=== PATIENT | male | born 1960 | race Caucasian/White ===

== ENCOUNTER 2018-06-30 11:16 | Inpatient (IN) | payer OTHER ==
[2018-06-30] MEDS ORDERED: Sodium Chloride 0.9% 10 ML Syringe FLUSH PRN (11:17)
[2018-06-30] MEDS ORDERED: Sodium Chloride 0.9% 10 ML SDV IV PRN (11:17)
[2018-06-30] MEDS ORDERED: Sodium Chloride 0.9% 2.5 ML Syringe FLUSH PRN (11:17)
--- NOTE | 2018-06-30 11:38 | CT ---
EXAMINATION: Non contrast CT head. Coronal and sagittal reformats. HISTORY: Stroke code FINDINGS: No evidence of intra or extra axial hemorrhage, mass, midline shift, hydrocephalus or edema. There is a small area of encephalomalacia within the right medial occipital region. No hypoattenuation changes in the major vascular territories to suggest acute infarct. No abnormal intracranial calcifications are detected. Mild vascular calcifications. Paranasal sinuses and mastoid air cells are essentially well aerated without substantial findings. Pituitary fossa appears unremarkable. Orbits and globes are symmetric. Calvarium is intact. No evidence of skull fracture. IMPRESSION: 1. No acute intracranial findings. 2. Stable encephalomalacia within the medial right occipital lobe. The above findings were called to the ER at 11:33 AM.
[2018-06-30 12:25] LABS: CHLORIDE,CL 103 mmol/L (98-107); SODIUM,NA 138 mmol/L (136-148)
--- NOTE | 2018-06-30 13:29 | EDM.PDOC ---
ED HPI GENERAL MEDICAL PROBLEM - General Chief Complaint: Neuro Symptoms/Deficits Stated Complaint: POSS STROKE SYMPTOMS Time Seen by Provider: 06/30/18 11:17 Source of Information: Reports: Patient History Limitations: Reports: No Limitations - History of Present Illness INITIAL COMMENTS - FREE TEXT/NARRATIVE: HISTORY AND PHYSICAL: History of present illness: Patient is a 57-year-old male presents to the ED today for concern of loss of balance and a change in sensation of his right leg. Patient states he went to bed last night at 10:30 PM. Patient states he woke up about 2 AM and noticed a change in his balance. Patient states that all morning he had this "odd" sensation but is not really able to quantify this. Patient called to the clinic and got an appointment. The clinic sent him to the ED with concern for a neurological event. Patient had a history of a stroke approximately 8 years ago that occurred following a heart surgery. Patient states he had a workup done at that time and it was believed to be a clot drawn to his brain from his heart surgery. Patient states he has recently stopped from medications but he is not certain which ones. Patient denies any falls or hitting of his head. Patient denies fever, chills, chest pain, shortness of breath, or cough. Denies headache, neck stiff ness, change in vision, syncope, or near syncope. Denies nausea, vomiting, abdominal pain, diarrhea, constipation, or dysuria. Has not noted any blood in urine or stool. Patient has been eating and drinking appropriately. Review of systems: As per history of present illness and below otherwise all systems reviewed and negative. Past medical history: As per history of present illness and as reviewed below otherwise noncontributory. Surgical history: As per history of present illness and as reviewed below otherwise noncontributory. Social history: See social history for further information Family history: As per history of present illness and as reviewed below otherwise noncontributory. Physical exam: General: Patient is alert, oriented, and in no acute distress. Patient laying comfortably on exam table. HEENT: Atraumatic, normocephalic, pupils equal and reactive bilaterally, negative for conjunctival pallor or scleral icterus, mucous membranes moist, TMs normal bilaterally, throat clear, neck supple, nontender, trachea midline. No drooling or trismus noted. No meningeal signs. No hot potato voice noted. Lungs: Clear to auscultation, breath sounds equal bilaterally, chest nontender. Heart: S1S2, regular rate and rhythm without overt murmur Abdomen: Soft, nondistended, nontender. Negative for masses or hepatosplenomegaly. Negative for costovertebral tenderness. Pelvis: Stable nontender. Genitourinary: Deferred. Rectal: Deferred. Skin: Intact, warm, dry. No lesions or rashes noted. Extremities: Atraumatic, negative for cords or calf pain. Neurovascular unremarkable. Full range of motion/strength of all extremities without difficulty. Neuro: Awake, alert, oriented. Cranial nerves II through XII unremarkable. With gait, patient has some loss of balance/poor coordination but is able to catch himself. Notes: Stroke code called upon arrival to the ED. Dr. Murphy was directly involved in patient care. NIH score 2, GCS 15. Discussed the importance to transfer [facility] to [place], but patient declines. Did have an extensive conversation about the risk vs benefit of transfer versus staying overnight in [place]. Patient states that he prefers to stay in [place] and declines transfer to [facility] in [place]. Patient states he is aware of the risks of not transfer but prefers to stay here and take the risk. Dr. Meyer was contacted on patient and will admit to observation. Voices understanding and is agreeable to plan of care. Denies any further questions or concerns at this time. 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 Admit to observation to Dr. Meyer. Definitive disposition and diagnosis as appropriate pending reevaluation and review of above. - Related Data Allergies Allergy/AdvReac Type Severity Reaction Status Date / Time No Known Allergies Allergy Verified 01/31/18 10:59 Home Meds: Home Meds Aspirin [Ecotrin] 1 tab PO DAILY 04/29/15 [History] Citalopram Hydrobromide [Celexa] 1 tab PO DAILY 04/29/15 [History] Losartan Potassium 1 tab PO DAILY 04/29/15 [History] Metoprolol Succinate [Toprol XL] 1 tab PO DAILY 04/29/15 [History] Omeprazole Magnesium [Prilosec Otc] 1 tab PO DAILY 04/29/15 [History] Rosuvastatin [Crestor] 40 mg PO BEDTIME 04/29/15 [History] Ibuprofen [Motrin] 600 mg PO ASDIRECTED PRN 01/14/16 [History] Past Medical History HEENT History: Reports: Impaired Vision Other HEENT History: Left eye was affected when he had a stroke. Peripheral vision was affected Cardiovascular History: Reports: CAD, High Cholesterol, Hypertension, SC, Stents , Other (See Below) Respiratory History: Reports: None Gastrointestinal History: Reports: Diverticulosis, GERD, Other (See Below) Other Gastrointestinal History: hx c-diff x3 Genitourinary History: Reports: BPH Musculoskeletal History: Reports: Fracture, Gout Neurological History: Reports: CVA Psychiatric History: Reports: Anxiety, Depression Endocrine/Metabolic History: Reports: Obesity/BMI 30+ Hematologic History: Reports: None Immunologic History: Reports: None Oncologic (Cancer) History: Reports: Lymphoma Dermatologic History: Reports: None - Infectious Disease History Infectious Disease History: Reports: Chicken Pox, Measles - Past Surgical History Head Surgeries/Procedures: Reports: None Cardiovascular Surgical History: Reports: Coronary Artery Stent GI Surgical History: Reports: Appendectomy, Hernia, Inguinal Musculoskeletal Surgical History: Reports: Other (See Below) Social & Family History - Family History Family Medical History: Noncontributory - Caffeine Use Caffeine Use: Reports: Coffee, Soda - Living Situation & Occupation Living situation: Reports: Single Occupation: Employed ED ROS GENERAL - Review of Systems Review Of Systems: ROS reveals no pertinent complaints other than HPI. ED EXAM, NEURO - Physical Exam Exam: See Below (see dictation) Course - Vital Signs Last Recorded V/S: Last Vital Signs Temp 36.3 C 06/30/18 11:20 Pulse 84 06/30/18 11:20 Resp 18 06/30/18 11:20 BP 157/81 H 06/30/18 11:20 Pulse Ox 92 L 06/30/18 11:20 - Orders/Labs/Meds Orders: Active Orders 24 hr Category Date Time Status Admission Status [Patient Status] [ADT] Stat ADT 06/30/18 13:37 Ordered Assess Neurological Status [RC] ASDIRECTED Care 06/30/18 11:17 Active Bedrest [RC] ASDIRECTED Care 06/30/18 11:17 Active Cardiac Monitoring [RC] . DIRECTED Care 06/30/18 11:17 Active EKG Documentation Completion [RC] STAT Care 06/30/18 11:17 Active Height and Weight [RC] UPON Care 06/30/18 11:17 Active Initiate Acute Stroke Protocol [RC] STAT Care 06/30/18 11:17 Active NIH Stroke Scale [RC] ASDIRECTED Care 06/30/18 11:17 Active Nursing Bedside Swallow Screen [RC] ASDIRECTED Care 06/30/18 11:17 Active Stroke Education, General [RC] Click to Edit Care 06/30/18 11:17 Active Vital Signs [RC] Q15M Care 06/30/18 11:17 Active Sodium Chloride 0.9% [Normal Saline] Med 06/30/18 11:17 Active 10 ml IV ASDIRECTED PRN Sodium Chloride 0.9% [Saline Flush] Med 06/30/18 11:17 Active 10 ml FLUSH ASDIRECTED PRN Sodium Chloride 0.9% [Saline Flush] Med 06/30/18 11:17 Active 2.5 ml FLUSH ASDIRECTED PRN Peripheral IV Insertion Adult [OM.PC] Stat Oth 06/30/18 11:17 Ordered Medication Orders Sodium Chloride (Saline Flush) 10 ml FLUSH ASDIRECTED PRN PRN Reason: Keep Vein Open Sodium Chloride (Saline Flush) 2.5 ml FLUSH ASDIRECTED PRN PRN Reason: Keep Vein Open Sodium Chloride (Normal Saline) 10 ml IV ASDIRECTED PRN PRN Reason: IV Use Labs: Laboratory Tests 06/30/18 06/30/18 06/30/18 Range/Units 11:30 11:30 11:30 WBC 4.62 (4.0-11.0) K/uL RBC 4.49 L (4.50-5.90) M/uL Hgb 13.8 (13.0-17.0) g/dL Hct 42.6 (38.0-50.0) % MCV 94.9 (80.0-98.0) fL MCH 30.7 (27.0-32.0) pg MCHC 32.4 (31.0-37.0) g/dL RDW Std Deviation 46.5 (28.0-62.0) fl RDW Coeff of Janet 13 (11.0-15.0) % Plt Count 191 (150-400) K/uL MPV 11.00 (7.40-12.00) fL Neut % (Auto) 63.2 (48.0-80.0) % Lymph % (Auto) 25.5 (16.0-40.0) % [place] % (Auto) 8.7 (0.0-15.0) % Eos % (Auto) 2.2 (0.0-7.0) % Baso % (Auto) 0.4 (0.0-1.5) % Neut # (Auto) 2.9 (1.4-5.7) K/uL Lymph # (Auto) 1.2 (0.6-2.4) K/uL [place] # (Auto) 0.4 (0.0-0.8) K/uL Eos # (Auto) 0.1 (0.0-0.7) K/uL Baso # (Auto) 0.0 (0.0-0.1) K/uL Nucleated RBC % 0.0 /100WBC Nucleated RBCs # 0 K/uL INR 0.96 APTT 26.0 (18.6-31.3) SEC Sodium 138 (136-148) mmol/L Potassium 4.0 (3.5-5.1) mmol/L Chloride 103 (98-107) mmol/L Carbon Dioxide 24.7 (21.0-32.0) mmol/L BUN 21 H (7.0-18.0) mg/dL Creatinine 0.9 (0.8-1.3) mg/dL Est Cr Clr Drug Dosing TNP Estimated GFR (MDRD) > 60.0 ml/min Glucose 143 H (74-106) mg/dL Calcium 9.5 (8.5-10.1) mg/dL Total Bilirubin 0.5 (0.2-1.0) mg/dL AST 34 (15-37) IU/L ALT 63 (14-63) IU/L Alkaline Phosphatase 62 (46-116) U/L Troponin I < 0.050 (0.000-0.056) ng/mL Total Protein 7.2 (6.4-8.2) g/dL Albumin 2.6 L (3.4-5.0) g/dL Globulin 4.6 H (2.6-4.0) g/dL Albumin/Globulin Ratio 0.6 L (0.9-1.6) TSH 3rd Generation 6.22 H (0.36-3.74) uIU/mL Urine Color Urine Appearance Urine pH (5.0-8.0) Ur Specific [place] (1.001-1.035) Urine Protein (NEGATIVE) mg/dL Urine Glucose (UA) (NEGATIVE) mg/dL Urine Ketones (NEGATIVE) mg/dL Urine Occult Blood (NEGATIVE) Urine Nitrite (NEGATIVE) Urine Bilirubin (NEGATIVE) Urine Urobilinogen (<2.0) EU/dL Ur Leukocyte Esterase (NEGATIVE) Urine RBC (0-2/HPF) Urine WBC (0-5/HPF) Ur Epithelial Cells (NONE-FEW) Urine Bacteria (NEGATIVE) 06/30/18 Range/Units 12:12 WBC (4.0-11.0) K/uL RBC (4.50-5.90) M/uL Hgb (13.0-17.0) g/dL Hct (38.0-50.0) % MCV (80.0-98.0) fL MCH (27.0-32.0) pg MCHC (31.0-37.0) g/dL RDW Std Deviation (28.0-62.0) fl RDW Coeff of Janet (11.0-15.0) % Plt Count (150-400) K/uL MPV (7.40-12.00) fL Neut % (Auto) (48.0-80.0) % Lymph % (Auto) (16.0-40.0) % [place] % (Auto) (0.0-15.0) % Eos % (Auto) (0.0-7.0) % Baso % (Auto) (0.0-1.5) % Neut # (Auto) (1.4-5.7) K/uL Lymph # (Auto) (0.6-2.4) K/uL [place] # (Auto) (0.0-0.8) K/uL Eos # (Auto) (0.0-0.7) K/uL Baso # (Auto) (0.0-0.1) K/uL Nucleated RBC % /100WBC Nucleated RBCs # K/uL INR APTT (18.6-31.3) SEC Sodium (136-148) mmol/L Potassium (3.5-5.1) mmol/L Chloride (98-107) mmol/L Carbon Dioxide (21.0-32.0) mmol/L BUN (7.0-18.0) mg/dL Creatinine (0.8-1.3) mg/dL Est Cr Clr Drug Dosing Estimated GFR (MDRD) ml/min Glucose (74-106) mg/dL Calcium (8.5-10.1) mg/dL Total Bilirubin (0.2-1.0) mg/dL AST (15-37) IU/L ALT (14-63) IU/L Alkaline Phosphatase (46-116) U/L Troponin I (0.000-0.056) ng/mL Total Protein (6.4-8.2) g/dL Albumin (3.4-5.0) g/dL Globulin (2.6-4.0) g/dL Albumin/Globulin Ratio (0.9-1.6) TSH 3rd Generation (0.36-3.74) uIU/mL Urine Color YELLOW Urine Appearance CLEAR Urine pH 6.0 (5.0-8.0) Ur Specific [place] <= 1.005 (1.001-1.035) Urine Protein NEGATIVE (NEGATIVE) mg/dL Urine Glucose (UA) NEGATIVE (NEGATIVE) mg/dL Urine Ketones NEGATIVE (NEGATIVE) mg/dL Urine Occult Blood TRACE-LYSED H (NEGATIVE) Urine Nitrite NEGATIVE (NEGATIVE) Urine Bilirubin NEGATIVE (NEGATIVE) Urine Urobilinogen 0.2 (<2.0) EU/dL Ur Leukocyte Esterase NEGATIVE (NEGATIVE) Urine RBC 0-1 (0-2/HPF) Urine WBC 0-1 (0-5/HPF) Ur Epithelial Cells RARE (NONE-FEW) Urine Bacteria RARE (NEGATIVE) Meds: Medications Generic Name Dose Route Start Last Admin Trade Name Freq PRN Reason Stop Dose Admin Sodium Chloride 10 ml 06/30/18 11:17 Saline Flush FLUSH ASDIRECTED PRN Keep Vein Open Sodium Chloride 2.5 ml 06/30/18 11:17 Saline Flush FLUSH ASDIRECTED PRN Keep Vein Open Sodium Chloride 10 ml 06/30/18 11:17 Normal Saline IV ASDIRECTED PRN IV Use Departure - Departure Time of Disposition: 13:42 Disposition: Home, Self-Care 01 Clinical Impression: History of stroke, Abnormal gait, Risk for falls - Discharge Information Referrals: PCP,Unknown [Primary Care Provider] - Forms: ED Department Discharge - My Orders Last 24 Hours: My Active Orders 06/30/18 11:17 Assess Neurological Status [RC] ASDIRECTED Bedrest [RC] ASDIRECTED Cardiac Monitoring [RC] . DIRECTED EKG Documentation Completion [RC] STAT Height and Weight [RC] UPON Initiate Acute Stroke Protocol [RC] STAT NIH Stroke Scale [RC] ASDIRECTED Nursing Bedside Swallow Screen [RC] ASDIRECTED Stroke Education, General [RC] Click to Edit Vital Signs [RC] Q15M Sodium Chloride 0.9% [Normal Saline] 10 ml IV ASDIRECTED PRN Sodium Chloride 0.9% [Saline Flush] 10 ml FLUSH ASDIRECTED PRN Sodium Chloride 0.9% [Saline Flush] 2.5 ml FLUSH ASDIRECTED PRN Peripheral IV Insertion Adult [OM.PC] Stat 06/30/18 13:37 Admission Status [Patient Status] [ADT] Stat - Assessment/Plan Last 24 Hours: My Active Orders 06/30/18 11:17 Assess Neurological Status [RC] ASDIRECTED Bedrest [RC] ASDIRECTED Cardiac Monitoring [RC] . DIRECTED EKG Documentation Completion [RC] STAT Height and Weight [RC] UPON Initiate Acute Stroke Protocol [RC] STAT NIH Stroke Scale [RC] ASDIRECTED Nursing Bedside Swallow Screen [RC] ASDIRECTED Stroke Education, General [RC] Click to Edit Vital Signs [RC] Q15M Sodium Chloride 0.9% [Normal Saline] 10 ml IV ASDIRECTED PRN Sodium Chloride 0.9% [Saline Flush] 10 ml FLUSH ASDIRECTED PRN Sodium Chloride 0.9% [Saline Flush] 2.5 ml FLUSH ASDIRECTED PRN Peripheral IV Insertion Adult [OM.PC] Stat 06/30/18 13:37 Admission Status [Patient Status] [ADT] Stat
[2018-06-30] MEDS ORDERED: Ondansetron 4 MG/2 ML SDV IVPUSH PRN (13:54)
[2018-06-30] MEDS ORDERED: Acetaminophen 325 MG Tab PO PRN (13:54)
--- NOTE | 2018-06-30 14:12 | PCM.HP ---
H&P History of Present Illness - General Date of Service: 06/30/18 Admit Problem/Dx: Admission Diagnosis/Problem Admission Diagnosis/Problem TIA, Transient ischemic attack Source of Information: Patient History Limitations: Reports: No Limitations - History of Present Illness Initial Comments - Free Text/Narative: This 57 year old male with pmh of CAD, HTN, and CVA presented initially to the clinic with complaints of R leg weakness, heaviness and spastic movements. He reports he noticed this around 0130 when he woke up to go to the bathroom. He reports it is really hard to explain when he is feeling. No overt pain. No overt numbness or tingling. Reports some sensation changes. Reports having knee pads on a few days ago, which were strapped to his knees and he kept having to tighten them because they were not staying in the same place. He was doing yard work at home the past couple days and reports he was doing well with this. He denies chest pain or shortness of breath. No palpitations. No neck pain, fevers , chills or URI symptoms. He denies abdominal pain or urinary troubles. No other neurological deficits. He denies smoking or alcohol use and no recreational drug use. Reports he stopped taking Crestor a couple weeks ago, says he ran out of medication. Also admits to not taking ASA regularly, but did take it this morning prior to appointment. In the ED CBC WNL. BMP negative. Troponin negative. EKG SR. Ua negative. Headt CT negative for acute intracranial process, stable encephalomalacia noted medial R occipital lobe. BP in the ED 150/80s, HR 80s. He will be admitted observation for R leg weakness rule out CVA. he was offered transfer to [place] in the ED which he declined and would like evaluation here in [place]. PCP Dr Santiago. - Related Data Allergies/Adverse Reactions: Allergies Allergy/AdvReac Type Severity Reaction Status Date / Time No Known Allergies Allergy Verified 01/31/18 10:59 Home Medications: Home Meds Aspirin [Ecotrin] 1 tab PO DAILY 04/29/15 [History] Citalopram Hydrobromide [Celexa] 1 tab PO DAILY 04/29/15 [History] Losartan Potassium 1 tab PO DAILY 04/29/15 [History] Metoprolol Succinate [Toprol XL] 1 tab PO DAILY 04/29/15 [History] Omeprazole Magnesium [Prilosec Otc] 1 tab PO DAILY 04/29/15 [History] Rosuvastatin [Crestor] 40 mg PO BEDTIME 04/29/15 [History] Ibuprofen [Motrin] 600 mg PO ASDIRECTED PRN 01/14/16 [History] Past Medical History HEENT History: Reports: Impaired Vision Other HEENT History: Left eye was affected when he had a stroke. Peripheral vision was affected Cardiovascular History: Reports: CAD, High Cholesterol, Hypertension, WI, Stents. Denies: Afib, Blood Clots/VTE/DVT Respiratory History: Reports: None. Denies: Asthma, COPD Gastrointestinal History: Reports: Diverticulosis, GERD, Other (See Below) Other Gastrointestinal History: hx c-diff x3 Genitourinary History: Reports: BPH Musculoskeletal History: Reports: Fracture, Gout Neurological History: Reports: CVA Psychiatric History: Reports: Anxiety, Depression Endocrine/Metabolic History: Reports: Obesity/BMI 30+. Denies: Diabetes, Type II Hematologic History: Reports: None Immunologic History: Reports: None Oncologic (Cancer) History: Reports: Lymphoma Dermatologic History: Reports: None - Infectious Disease History Infectious Disease History: Reports: Chicken Pox, Measles - Past Surgical History Head Surgeries/Procedures: Reports: None Cardiovascular Surgical History: Reports: Coronary Artery Stent GI Surgical History: Reports: Appendectomy, Hernia, Inguinal Musculoskeletal Surgical History: Reports: Other (See Below) Social & Family History - Family History Family Medical History: Noncontributory - Tobacco Use Smoking Status *Q: Never Smoker - Caffeine Use Caffeine Use: Reports: Coffee, Soda - Alcohol Use Alcohol Use History: No - Recreational Drug Use Recreational Drug Use: No - Living Situation & Occupation Living situation: Reports: Single Occupation: Employed H&P Review of Systems - Review of Systems: Review Of Systems: See Below General: Reports: No Symptoms. Denies: Fever, Chills, Malaise, Weakness HEENT: Reports: No Symptoms. Denies: Headaches, Sinus Congestion, Sore Throat, Vertigo Pulmonary: Reports: No Symptoms. Denies: Shortness of Breath Cardiovascular: Reports: No Symptoms. Denies: Chest Pain Gastrointestinal: Reports: No Symptoms. Denies: Abdominal Pain, Black Stool, Bloody Stool, Nausea, Vomiting Genitourinary: Reports: No Symptoms. Denies: Dysuria, Frequency Musculoskeletal: Reports: No Symptoms. Denies: Neck Pain, Joint Pain (no knee pain) Skin: Reports: No Symptoms Psychiatric: Reports: No Symptoms Neurological: Reports: Difficulty Walking, Gait Disturbance. Denies: Dizziness , Headache, Numbness, Paresthesia, Syncope, Tingling Hematologic/Lymphatic: Reports: No Symptoms Exam - Exam Exam: See Below - Vital Signs Vital Signs: Last Vital Signs Temp 97.0 F 06/30/18 13:45 Pulse 56 L 06/30/18 13:45 Resp 16 06/30/18 13:45 BP 115/82 06/30/18 13:45 Pulse Ox 97 06/30/18 13:45 Weight: 89.811 kg - Exam General: Alert, Oriented, Cooperative HEENT: Conjunctiva Clear, EACs Clear, Mucosa Moist & [place], Posterior Pharynx Clear Neck: Supple, Trachea Midline, +2 Carotid Pulse wo Bruit, Full Range of Motion. No: Lymphadenopathy Lungs: Clear to Auscultation, Normal Respiratory Effort Cardiovascular: Regular Rate, Regular Rhythm GI/Abdominal Exam: Normal Bowel Sounds, Soft, Non-Tender Back Exam: Normal Inspection, Full Range of Motion Extremities: Normal Inspection, Normal Range of Motion, Non-Tender, No Pedal Edema, Normal Capillary Refill Peripheral Pulses: 2+: Posterior Tibial (L), Posterior Tibial (R), Dorsalis Pedis (L), Dorsalis Pedis (R) Skin: Warm, Dry Neurological: Cranial Nerves Intact, Reflexes Equal Bilateral, Strength Equal Bilateral. No: Normal Gait (stood up for me and it appeared as those knee gave out, I helped catch him and assisted him back to sitting on bed. He stood up again and felt things were better ambulated a few steps with close assist and tolerated well. ) Neuro Extensive - Mental Status: Alert, Oriented x3, Normal Mood/Affect, Normal Cognition Neuro Extensive - Motor, Sensory, Reflexes: CN II-XII Intact, Ataxia. No: Facial palsy (L), Facial Palsy (R), Pronator Drift (R), Pronator Drift (L), Tremor, Motor/Sensory Deficits Psychiatric: Alert, Normal Affect, Normal Mood - Patient Data Lab Results Last 24 hrs: Laboratory Results - last 24 hr 06/30/18 06/30/18 06/30/18 Range/Units 11:30 11:30 11:30 WBC 4.62 (4.0-11.0) K/uL RBC 4.49 L (4.50-5.90) M/uL Hgb 13.8 (13.0-17.0) g/dL Hct 42.6 (38.0-50.0) % MCV 94.9 (80.0-98.0) fL MCH 30.7 (27.0-32.0) pg MCHC 32.4 (31.0-37.0) g/dL RDW Std Deviation 46.5 (28.0-62.0) fl RDW Coeff of Janet 13 (11.0-15.0) % Plt Count 191 (150-400) K/uL MPV 11.00 (7.40-12.00) fL Neut % (Auto) 63.2 (48.0-80.0) % Lymph % (Auto) 25.5 (16.0-40.0) % Hind[place] % (Auto) 8.7 (0.0-15.0) % Eos % (Auto) 2.2 (0.0-7.0) % Baso % (Auto) 0.4 (0.0-1.5) % Neut # (Auto) 2.9 (1.4-5.7) K/uL Lymph # (Auto) 1.2 (0.6-2.4) K/uL Hind[place] # (Auto) 0.4 (0.0-0.8) K/uL Eos # (Auto) 0.1 (0.0-0.7) K/uL Baso # (Auto) 0.0 (0.0-0.1) K/uL Nucleated RBC % 0.0 /100WBC Nucleated RBCs # 0 K/uL INR 0.96 APTT 26.0 (18.6-31.3) SEC Sodium 138 (136-148) mmol/L Potassium 4.0 (3.5-5.1) mmol/L Chloride 103 (98-107) mmol/L Carbon Dioxide 24.7 (21.0-32.0) mmol/L BUN 21 H (7.0-18.0) mg/dL Creatinine 0.9 (0.8-1.3) mg/dL Est Cr Clr Drug Dosing TNP Estimated GFR (MDRD) > 60.0 ml/min Glucose 143 H (74-106) mg/dL Calcium 9.5 (8.5-10.1) mg/dL Total Bilirubin 0.5 (0.2-1.0) mg/dL AST 34 (15-37) IU/L ALT 63 (14-63) IU/L Alkaline Phosphatase 62 (46-116) U/L Troponin I < 0.050 (0.000-0.056) ng/mL Total Protein 7.2 (6.4-8.2) g/dL Albumin 2.6 L (3.4-5.0) g/dL Globulin 4.6 H (2.6-4.0) g/dL Albumin/Globulin Ratio 0.6 L (0.9-1.6) TSH 3rd Generation 6.22 H (0.36-3.74) uIU/mL Urine Color Urine Appearance Urine pH (5.0-8.0) Ur Specific [place] (1.001-1.035) Urine Protein (NEGATIVE) mg/dL Urine Glucose (UA) (NEGATIVE) mg/dL Urine Ketones (NEGATIVE) mg/dL Urine Occult Blood (NEGATIVE) Urine Nitrite (NEGATIVE) Urine Bilirubin (NEGATIVE) Urine Urobilinogen (<2.0) EU/dL Ur Leukocyte Esterase (NEGATIVE) Urine RBC (0-2/HPF) Urine WBC (0-5/HPF) Ur Epithelial Cells (NONE-FEW) Urine Bacteria (NEGATIVE) 06/30/18 Range/Units 12:12 WBC (4.0-11.0) K/uL RBC (4.50-5.90) M/uL Hgb (13.0-17.0) g/dL Hct (38.0-50.0) % MCV (80.0-98.0) fL MCH (27.0-32.0) pg MCHC (31.0-37.0) g/dL RDW Std Deviation (28.0-62.0) fl RDW Coeff of Janet (11.0-15.0) % Plt Count (150-400) K/uL MPV (7.40-12.00) fL Neut % (Auto) (48.0-80.0) % Lymph % (Auto) (16.0-40.0) % Hind[place] % (Auto) (0.0-15.0) % Eos % (Auto) (0.0-7.0) % Baso % (Auto) (0.0-1.5) % Neut # (Auto) (1.4-5.7) K/uL Lymph # (Auto) (0.6-2.4) K/uL Hind[place] # (Auto) (0.0-0.8) K/uL Eos # (Auto) (0.0-0.7) K/uL Baso # (Auto) (0.0-0.1) K/uL Nucleated RBC % /100WBC Nucleated RBCs # K/uL INR APTT (18.6-31.3) SEC Sodium (136-148) mmol/L Potassium (3.5-5.1) mmol/L Chloride (98-107) mmol/L Carbon Dioxide (21.0-32.0) mmol/L BUN (7.0-18.0) mg/dL Creatinine (0.8-1.3) mg/dL Est Cr Clr Drug Dosing Estimated GFR (MDRD) ml/min Glucose (74-106) mg/dL Calcium (8.5-10.1) mg/dL Total Bilirubin (0.2-1.0) mg/dL AST (15-37) IU/L ALT (14-63) IU/L Alkaline Phosphatase (46-116) U/L Troponin I (0.000-0.056) ng/mL Total Protein (6.4-8.2) g/dL Albumin (3.4-5.0) g/dL Globulin (2.6-4.0) g/dL Albumin/Globulin Ratio (0.9-1.6) TSH 3rd Generation (0.36-3.74) uIU/mL Urine Color YELLOW Urine Appearance CLEAR Urine pH 6.0 (5.0-8.0) Ur Specific [place] <= 1.005 (1.001-1.035) Urine Protein NEGATIVE (NEGATIVE) mg/dL Urine Glucose (UA) NEGATIVE (NEGATIVE) mg/dL Urine Ketones NEGATIVE (NEGATIVE) mg/dL Urine Occult Blood TRACE-LYSED H (NEGATIVE) Urine Nitrite NEGATIVE (NEGATIVE) Urine Bilirubin NEGATIVE (NEGATIVE) Urine Urobilinogen 0.2 (<2.0) EU/dL Ur Leukocyte Esterase NEGATIVE (NEGATIVE) Urine RBC 0-1 (0-2/HPF) Urine WBC 0-1 (0-5/HPF) Ur Epithelial Cells RARE (NONE-FEW) Urine Bacteria RARE (NEGATIVE) Result Diagrams: 06/30/18 11:30 06/30/18 11:30 *Q Meaningful Use (ADM) - VTE Risk Assess *Q Each Risk Factor Represents 1 Point: Age 41 - 59 years Total Score 1 Point Risk Factors: 1 Each Risk Factor Represents 2 Points: Malignancy (present or previous) Total Score 2 Point Risk Factors: 2 Each Risk Factor Represents 3 Points: None Total Score 3 Point Risk Factors: 0 Each Risk Factor Represents 5 Points: None Total Score 5 Point Risk Factors: 0 Venous Thromboembolism Risk Factor Score *Q: 3 - Problem List (1) Abnormal gait SNOMED Code(s): 38094470 ICD Code: R26.9 - UNSPECIFIED ABNORMALITIES OF GAIT AND MOBILITY Status: Acute Current Visit: Yes (2) History of CVA (cerebrovascular accident) SNOMED Code(s): 842373171 ICD Code: Z86.73 - PRSNL HX OF TIA (TIA), AND CEREB INFRC W/O RESID DEFICITS Status: Chronic Current Visit: Yes (3) HTN (hypertension) SNOMED Code(s): 65496329 ICD Code: I10 - ESSENTIAL (PRIMARY) HYPERTENSION Status: Chronic Current Visit: Yes Qualifiers: Hypertension type: essential hypertension Qualified Code(s): I10 - Essential (primary) hypertension (4) CAD (coronary artery disease) SNOMED Code(s): 32383574 ICD Code: I25.10 - ATHSCL HEART DISEASE OF [place] CORONARY ARTERY W/O ANG PCTRS Status: Chronic Current Visit: Yes (5) Hx of myocardial infarction SNOMED Code(s): 260464264 ICD Code: I25.2 - OLD MYOCARDIAL INFARCTION Status: Chronic Current Visit : Yes (6) Anxiety and depression SNOMED Code(s): 71684422 ICD Code: F41.9 - ANXIETY DISORDER, UNSPECIFIED; F32.9 - MAJOR DEPRESSIVE DISORDER, SINGLE EPISODE, UNSPECIFIED Status: Chronic Current Visit: Yes Problem List Initiated/Reviewed/Updated: Yes Orders Last 24hrs: Active Orders 24 hr Category Date Time Status Admission Status [Patient Status] [ADT] Stat ADT 06/30/18 13:37 Active Assess Neurological Status [RC] ASDIRECTED Care 06/30/18 11:17 Active Bedrest [RC] ASDIRECTED Care 06/30/18 11:17 Active Cardiac Monitoring [RC] . DIRECTED Care 06/30/18 11:17 Active EKG Documentation Completion [RC] STAT Care 06/30/18 11:17 Active Height and Weight [RC] UPON Care 06/30/18 11:17 Active Initiate Acute Stroke Protocol [RC] STAT Care 06/30/18 11:17 Active Intake and Output [RC] QSHIFT Care 06/30/18 13:54 Ordered NIH Stroke Scale [RC] ASDIRECTED Care 06/30/18 11:17 Active Nursing Bedside Swallow Screen [RC] ASDIRECTED Care 06/30/18 11:17 Active Oxygen Therapy [RC] PRN Care 06/30/18 13:54 Ordered Stroke Education, General [RC] Click to Edit Care 06/30/18 11:17 Active Telemetry Monitoring [Cardiac Monitoring] [RC] . Care 06/30/18 13:54 Ordered DIRECTED Up With Assistance [RC] ASDIRECTED Care 06/30/18 13:54 Ordered VTE/DVT Education [RC] PER UNIT ROUTINE Care 06/30/18 13:54 Ordered Vital Signs [RC] Q15M Care 06/30/18 11:17 Active Vital Signs [RC] Q4H Care 06/30/18 13:54 Ordered OT Evaluation and Treatment [CONS] Routine Cons 06/30/18 13:54 Ordered PT Evaluation and Treatment [CONS] Routine Cons 06/30/18 13:54 Ordered Heart Healthy Diet [DIET] Diet 06/30/18 Lunch Ordered Echo Comp wo Cont [US] Routine Exams 06/30/18 14:01 Ordered BASIC METABOLIC PANEL,BMP [CHEM] AM Lab 07/01/18 05:11 Ordered CBC WITH AUTO DIFF [HEME] AM Lab 07/01/18 05:11 Ordered Acetaminophen [Tylenol] Med 06/30/18 13:54 Ordered 650 mg PO Q4H PRN Ondansetron [Zofran] Med 06/30/18 13:54 Ordered 4 mg IVPUSH Q4H PRN Sodium Chloride 0.9% [Normal Saline] Med 06/30/18 11:17 Active 10 ml IV ASDIRECTED PRN Sodium Chloride 0.9% [Saline Flush] Med 06/30/18 11:17 Active 10 ml FLUSH ASDIRECTED PRN Sodium Chloride 0.9% [Saline Flush] Med 06/30/18 11:17 Active 2.5 ml FLUSH ASDIRECTED PRN Peripheral IV Insertion Adult [OM.PC] Stat Oth 06/30/18 11:17 Ordered Resuscitation Status Routine Resus Stat 06/30/18 13:54 Ordered Medication Orders Sodium Chloride (Saline Flush) 10 ml FLUSH ASDIRECTED PRN PRN Reason: Keep Vein Open Sodium Chloride (Saline Flush) 2.5 ml FLUSH ASDIRECTED PRN PRN Reason: Keep Vein Open Sodium Chloride (Normal Saline) 10 ml IV ASDIRECTED PRN PRN Reason: IV Use Assessment/Plan Comment:: This 57 year old male admitted with ataxia rule out new CVA 1. Ataxia: Due to Hx CVA, will obtain MRI/MRA brain and MRA neck to further evaluate for CVA. Will obtain ECHO as well. Monitor on telemetry to evaluate for arrhythmia. Continue ASA and statin. He was educated on importance of both of these with hx of CVA and WI. Will obtain Lipid panel in am and obtain A1c as well. PT/OT to evaluate and treat. No ST is needed due to no concern with swallowing. 2. HTN: Will allow permissive HTN until CVA is rule out. Monitor 3. CAD: Stable, no chest pain, Continue ASA and statin. VTE prophylaxis: Lovenox. Dispo: 1-2 days pending improvement.
[2018-06-30 15:35] LABS: HEMOGLOBIN A1C 6.5 % (4.5-6.2)
[2018-06-30] MEDS: Enoxaparin 40 MG/0.4 ML Syringe SUBCUT SCH (16:37)
[2018-06-30] MEDS: Rosuvastatin 10 MG Tab PO SCH (20:40)
--- NOTE | 2018-06-30 21:54 | MR ---
Indication: Rt leg weakness, Hx of CVA. Technique: MRI Head: performed before and after IV contrast. MRA Head: performed without IV contrast. MRA Neck: performed before and after IV contrast. Gadolinium-based contrast agent: 10 mL Gadavist IV contrast. Comparison: No prior studies available for comparison at this institution. Findings: MRI Head: There is a 1 centimeter focus of diffusion restriction and T2 prolongation in the left posterior frontal lobe and centrum semiovale consistent with acute infarct. Chronic infarct in the medial aspect of the right occipital cortex. No intracranial mass effect. No ventricular obstruction. Grossly normal flow voids are maintained in the directly imaged intracranial vascular structures. The craniovertebral junction is unremarkable, with a patent foramen magnum. Both temporal bones are clear. Mild left mastoid effusion. Mild mucosal thickening in the right maxillary sinus. MRA Head: Internal carotid arteries, middle cerebral arteries and anterior cerebral arteries are normal. MCA bifurcations and anterior communicating artery region are normal. Distal vertebral arteries, basilar artery, and posterior cerebral arteries are normal. Basilar tip is normal. No aneurysms, stenoses, or occlusions, throughout. MRA Neck: The cervical segments of both vertebral arteries are patent. The visualized portions of the aortic arch, great vessel origins and proximal subclavian arteries are unremarkable. No evidence for hemodynamically significant internal carotid artery stenosis by NASCET criteria. Impression: MRI Head: 1. There is a 1 cm focus of diffusion restriction in the left posterior frontal lobe and centrum semiovale consistent with acute infarct. 2. Chronic infarct in the medial aspect of the right occipital cortex. MRA Head: 1. No proximal arterial occlusion, high-grade stenosis, aneurysm, dissection, or vascular malformation. MRA Neck: 1. No evidence for hemodynamically significant ICA stenosis by NASCET criteria. 2. No evidence for carotid or vertebral artery dissection in the neck. Dictated by Stevo Madden MD @ Jun 30 2018 9:42PM Signed by Dr. Stevo Madden @ Jun 30 2018 9:53PM
--- NOTE | 2018-06-30 21:56 | MR ---
Indication: Rt leg weakness, Hx of CVA. Technique: MRI Head: performed before and after IV contrast. MRA Head: performed without IV contrast. MRA Neck: performed before and after IV contrast. Gadolinium-based contrast agent: 18 mL MultiHance IV contrast. Comparison: No prior studies available for comparison at this institution. Findings: MRI Head: There is a 1 centimeter focus of diffusion restriction and T2 prolongation in the left posterior frontal lobe and centrum semiovale consistent with acute infarct. Chronic infarct in the medial aspect of the right occipital cortex. No intracranial mass effect. No ventricular obstruction. Grossly normal flow voids are maintained in the directly imaged intracranial vascular structures. The craniovertebral junction is unremarkable, with a patent foramen magnum. Both temporal bones are clear. Mild left mastoid effusion. Mild mucosal thickening in the right maxillary sinus. MRA Head: Internal carotid arteries, middle cerebral arteries and anterior cerebral arteries are normal. MCA bifurcations and anterior communicating artery region are normal. Distal vertebral arteries, basilar artery, and posterior cerebral arteries are normal. Basilar tip is normal. No aneurysms, stenoses, or occlusions, throughout. MRA Neck: The cervical segments of both vertebral arteries are patent. The visualized portions of the aortic arch, great vessel origins and proximal subclavian arteries are unremarkable. No evidence for hemodynamically significant internal carotid artery stenosis by NASCET criteria. Impression: MRI Head: 1. There is a 1 cm focus of diffusion restriction in the left posterior frontal lobe and centrum semiovale consistent with acute infarct. 2. Chronic infarct in the medial aspect of the right occipital cortex. MRA Head: 1. No proximal arterial occlusion, high-grade stenosis, aneurysm, dissection, or vascular malformation. MRA Neck: 1. No evidence for hemodynamically significant ICA stenosis by NASCET criteria. 2. No evidence for carotid or vertebral artery dissection in the neck. Dictated by Stevo Madden MD @ Jun 30 2018 9:53PM Signed by Dr. Stevo Madden @ Jun 30 2018 9:53PM
[2018-07-01 06:02] LABS: CHLORIDE,CL 106 mmol/L (98-107); SODIUM,NA 140 mmol/L (136-148)
[2018-07-01] MEDS: Aspirin 81 MG Tab.EC PO SCH (09:05)
--- NOTE | 2018-07-01 10:10 | PCM.PN ---
- General Info Date of Service: 07/01/18 Admission Dx/Problem (Free Text): Admission Diagnosis/Problem Admission Diagnosis/Problem CVA Subjective Update: Reports slight heaviness to R leg still, mild improvement. No chest pain or SOB. Feeling better, still feels unbalanced Functional Status: Reports: Pain Controlled, Tolerating Diet, Ambulating, Urinating - Review of Systems General: Reports: No Symptoms. Denies: Fever, Weakness, Fatigue HEENT: Reports: Other (unbalanced feelings) Pulmonary: Reports: No Symptoms. Denies: Shortness of Breath Cardiovascular: Reports: No Symptoms. Denies: Chest Pain Gastrointestinal: Reports: No Symptoms. Denies: Abdominal Pain Genitourinary: Reports: No Symptoms Musculoskeletal: Reports: No Symptoms Skin: Reports: No Symptoms Neurological: Reports: Difficulty Walking, Gait Disturbance, Other (R leg weak and heavy feeling.) Psychiatric: Reports: No Symptoms - Patient Data Vitals - Most Recent: Last Vital Signs Temp 97.4 F 07/01/18 07:36 Pulse 68 07/01/18 07:36 Resp 18 07/01/18 07:36 BP 130/82 07/01/18 07:36 Pulse Ox 94 L 07/01/18 07:36 Weight - Most Recent: 89.811 kg I&O - Last 24 Hours: Intake & Output 06/30/18 07/01/18 07/01/18 22:59 06:59 14:59 Intake Total 0 890 Output Total 920 Balance 0 -30 Lab Results Last 24 Hours: Laboratory Results - last 24 hr 06/30/18 06/30/18 06/30/18 Range/Units 11:30 11:30 11:30 WBC 4.62 (4.0-11.0) K/uL RBC 4.49 L (4.50-5.90) M/uL Hgb 13.8 (13.0-17.0) g/dL Hct 42.6 (38.0-50.0) % MCV 94.9 (80.0-98.0) fL MCH 30.7 (27.0-32.0) pg MCHC 32.4 (31.0-37.0) g/dL RDW Std Deviation 46.5 (28.0-62.0) fl RDW Coeff of Janet 13 (11.0-15.0) % Plt Count 191 (150-400) K/uL MPV 11.00 (7.40-12.00) fL Neut % (Auto) 63.2 (48.0-80.0) % Lymph % (Auto) 25.5 (16.0-40.0) % [place] % (Auto) 8.7 (0.0-15.0) % Eos % (Auto) 2.2 (0.0-7.0) % Baso % (Auto) 0.4 (0.0-1.5) % Neut # (Auto) 2.9 (1.4-5.7) K/uL Lymph # (Auto) 1.2 (0.6-2.4) K/uL [place] # (Auto) 0.4 (0.0-0.8) K/uL Eos # (Auto) 0.1 (0.0-0.7) K/uL Baso # (Auto) 0.0 (0.0-0.1) K/uL Nucleated RBC % 0.0 /100WBC Nucleated RBCs # 0 K/uL INR 0.96 APTT 26.0 (18.6-31.3) SEC Sodium 138 (136-148) mmol/L Potassium 4.0 (3.5-5.1) mmol/L Chloride 103 (98-107) mmol/L Carbon Dioxide 24.7 (21.0-32.0) mmol/L BUN 21 H (7.0-18.0) mg/dL Creatinine 0.9 (0.8-1.3) mg/dL Est Cr Clr Drug Dosing TNP Estimated GFR (MDRD) > 60.0 ml/min Glucose 143 H (74-106) mg/dL Hemoglobin A1c (4.5-6.2) % Calcium 9.5 (8.5-10.1) mg/dL Total Bilirubin 0.5 (0.2-1.0) mg/dL AST 34 (15-37) IU/L ALT 63 (14-63) IU/L Alkaline Phosphatase 62 (46-116) U/L Troponin I < 0.050 (0.000-0.056) ng/mL Total Protein 7.2 (6.4-8.2) g/dL Albumin 2.6 L (3.4-5.0) g/dL Globulin 4.6 H (2.6-4.0) g/dL Albumin/Globulin Ratio 0.6 L (0.9-1.6) Triglycerides (0-200) mg/dL Cholesterol (50-200) mg/dL LDL Cholesterol, Calc (60-180) mg/dL VLDL Cholesterol (5-55) mg/dL HDL Cholesterol (40-60) mg/dL Cholesterol/HDL Ratio (3.3-6.0) TSH 3rd Generation 6.22 H (0.36-3.74) uIU/mL Urine Color Urine Appearance Urine pH (5.0-8.0) Ur Specific [place] (1.001-1.035) Urine Protein (NEGATIVE) mg/dL Urine Glucose (UA) (NEGATIVE) mg/dL Urine Ketones (NEGATIVE) mg/dL Urine Occult Blood (NEGATIVE) Urine Nitrite (NEGATIVE) Urine Bilirubin (NEGATIVE) Urine Urobilinogen (<2.0) EU/dL Ur Leukocyte Esterase (NEGATIVE) Urine RBC (0-2/HPF) Urine WBC (0-5/HPF) Ur Epithelial Cells (NONE-FEW) Urine Bacteria (NEGATIVE) 06/30/18 06/30/18 07/01/18 Range/Units 11:30 12:12 05:02 WBC 4.53 (4.0-11.0) K/uL RBC 4.48 L (4.50-5.90) M/uL Hgb 13.8 (13.0-17.0) g/dL Hct 42.8 (38.0-50.0) % MCV 95.5 (80.0-98.0) fL MCH 30.8 (27.0-32.0) pg MCHC 32.2 (31.0-37.0) g/dL RDW Std Deviation 47.1 (28.0-62.0) fl RDW Coeff of Janet 14 (11.0-15.0) % Plt Count 200 (150-400) K/uL MPV 11.10 (7.40-12.00) fL Neut % (Auto) 56.4 (48.0-80.0) % Lymph % (Auto) 30.7 (16.0-40.0) % [place] % (Auto) 9.3 (0.0-15.0) % Eos % (Auto) 2.9 (0.0-7.0) % Baso % (Auto) 0.7 (0.0-1.5) % Neut # (Auto) 2.6 (1.4-5.7) K/uL Lymph # (Auto) 1.4 (0.6-2.4) K/uL [place] # (Auto) 0.4 (0.0-0.8) K/uL Eos # (Auto) 0.1 (0.0-0.7) K/uL Baso # (Auto) 0.0 (0.0-0.1) K/uL Nucleated RBC % 0.0 /100WBC Nucleated RBCs # 0 K/uL INR APTT (18.6-31.3) SEC Sodium (136-148) mmol/L Potassium (3.5-5.1) mmol/L Chloride (98-107) mmol/L Carbon Dioxide (21.0-32.0) mmol/L BUN (7.0-18.0) mg/dL Creatinine (0.8-1.3) mg/dL Est Cr Clr Drug Dosing Estimated GFR (MDRD) ml/min Glucose (74-106) mg/dL Hemoglobin A1c 6.5 H (4.5-6.2) % Calcium (8.5-10.1) mg/dL Total Bilirubin (0.2-1.0) mg/dL AST (15-37) IU/L ALT (14-63) IU/L Alkaline Phosphatase (46-116) U/L Troponin I (0.000-0.056) ng/mL Total Protein (6.4-8.2) g/dL Albumin (3.4-5.0) g/dL Globulin (2.6-4.0) g/dL Albumin/Globulin Ratio (0.9-1.6) Triglycerides (0-200) mg/dL Cholesterol (50-200) mg/dL LDL Cholesterol, Calc (60-180) mg/dL VLDL Cholesterol (5-55) mg/dL HDL Cholesterol (40-60) mg/dL Cholesterol/HDL Ratio (3.3-6.0) TSH 3rd Generation (0.36-3.74) uIU/mL Urine Color YELLOW Urine Appearance CLEAR Urine pH 6.0 (5.0-8.0) Ur Specific [place] <= 1.005 (1.001-1.035) Urine Protein NEGATIVE (NEGATIVE) mg/dL Urine Glucose (UA) NEGATIVE (NEGATIVE) mg/dL Urine Ketones NEGATIVE (NEGATIVE) mg/dL Urine Occult Blood TRACE-LYSED H (NEGATIVE) Urine Nitrite NEGATIVE (NEGATIVE) Urine Bilirubin NEGATIVE (NEGATIVE) Urine Urobilinogen 0.2 (<2.0) EU/dL Ur Leukocyte Esterase NEGATIVE (NEGATIVE) Urine RBC 0-1 (0-2/HPF) Urine WBC 0-1 (0-5/HPF) Ur Epithelial Cells RARE (NONE-FEW) Urine Bacteria RARE (NEGATIVE) 07/01/18 Range/Units 05:02 WBC (4.0-11.0) K/uL RBC (4.50-5.90) M/uL Hgb (13.0-17.0) g/dL Hct (38.0-50.0) % MCV (80.0-98.0) fL MCH (27.0-32.0) pg MCHC (31.0-37.0) g/dL RDW Std Deviation (28.0-62.0) fl RDW Coeff of Janet (11.0-15.0) % Plt Count (150-400) K/uL MPV (7.40-12.00) fL Neut % (Auto) (48.0-80.0) % Lymph % (Auto) (16.0-40.0) % [place] % (Auto) (0.0-15.0) % Eos % (Auto) (0.0-7.0) % Baso % (Auto) (0.0-1.5) % Neut # (Auto) (1.4-5.7) K/uL Lymph # (Auto) (0.6-2.4) K/uL [place] # (Auto) (0.0-0.8) K/uL Eos # (Auto) (0.0-0.7) K/uL Baso # (Auto) (0.0-0.1) K/uL Nucleated RBC % /100WBC Nucleated RBCs # K/uL INR APTT (18.6-31.3) SEC Sodium 140 (136-148) mmol/L Potassium 4.7 (3.5-5.1) mmol/L Chloride 106 (98-107) mmol/L Carbon Dioxide 29.1 (21.0-32.0) mmol/L BUN 17 (7.0-18.0) mg/dL Creatinine 1.0 (0.8-1.3) mg/dL Est Cr Clr Drug Dosing 72.66 Estimated GFR (MDRD) > 60.0 ml/min Glucose 107 H (74-106) mg/dL Hemoglobin A1c (4.5-6.2) % Calcium 10.1 (8.5-10.1) mg/dL Total Bilirubin (0.2-1.0) mg/dL AST (15-37) IU/L ALT (14-63) IU/L Alkaline Phosphatase (46-116) U/L Troponin I (0.000-0.056) ng/mL Total Protein (6.4-8.2) g/dL Albumin (3.4-5.0) g/dL Globulin (2.6-4.0) g/dL Albumin/Globulin Ratio (0.9-1.6) Triglycerides 155 (0-200) mg/dL Cholesterol 222 H (50-200) mg/dL LDL Cholesterol, Calc 156 (60-180) mg/dL VLDL Cholesterol 31 (5-55) mg/dL HDL Cholesterol 35 L (40-60) mg/dL Cholesterol/HDL Ratio 6.3 H (3.3-6.0) TSH 3rd Generation (0.36-3.74) uIU/mL Urine Color Urine Appearance Urine pH (5.0-8.0) Ur Specific [place] (1.001-1.035) Urine Protein (NEGATIVE) mg/dL Urine Glucose (UA) (NEGATIVE) mg/dL Urine Ketones (NEGATIVE) mg/dL Urine Occult Blood (NEGATIVE) Urine Nitrite (NEGATIVE) Urine Bilirubin (NEGATIVE) Urine Urobilinogen (<2.0) EU/dL Ur Leukocyte Esterase (NEGATIVE) Urine RBC (0-2/HPF) Urine WBC (0-5/HPF) Ur Epithelial Cells (NONE-FEW) Urine Bacteria (NEGATIVE) Med Orders - Current: Current Medications Acetaminophen (Tylenol) 650 mg PO Q4H PRN PRN Reason: Pain (mild 1-3) Aspirin (Halfprin) 81 mg PO DAILY [facility] Last Admin: 07/01/18 09:05 Dose: 81 mg Enoxaparin Sodium (Lovenox) 40 mg SUBCUT Q24H [facility] Last Admin: 06/30/18 16:37 Dose: 40 mg Ondansetron HCl (Zofran) 4 mg IVPUSH Q4H PRN PRN Reason: Nausea Rosuvastatin Calcium (Crestor) 40 mg PO BEDTIME [facility] Last Admin: 06/30/18 20:40 Dose: 40 mg Sodium Chloride (Saline Flush) 10 ml FLUSH ASDIRECTED PRN PRN Reason: Keep Vein Open Sodium Chloride (Saline Flush) 2.5 ml FLUSH ASDIRECTED PRN PRN Reason: Keep Vein Open Sodium Chloride (Normal Saline) 10 ml IV ASDIRECTED PRN PRN Reason: IV Use - Exam General: Alert, Oriented, Cooperative Lungs: Clear to Auscultation, Normal Respiratory Effort Cardiovascular: Regular Rate, Regular Rhythm GI/Abdominal Exam: Normal Bowel Sounds, Soft, Non-Tender Extremities: Normal Inspection, Normal Range of Motion, Non-Tender, No Pedal Edema Wound/Incisions: Healing Well Neurological: Other (R leg weakness improved slightly, slow methodical movement when compared to L leg.) Psy/Mental Status: Alert, Normal Affect, Normal Mood - Problem List & Annotations (1) Abnormal gait SNOMED Code(s): 22366360 Code(s): R26.9 - UNSPECIFIED ABNORMALITIES OF GAIT AND MOBILITY Status: Acute Current Visit: Yes (2) History of CVA (cerebrovascular accident) SNOMED Code(s): 933281678 Code(s): Z86.73 - PRSNL HX OF TIA (TIA), AND CEREB INFRC W/O RESID DEFICITS Status: Chronic Current Visit: Yes (3) HTN (hypertension) SNOMED Code(s): 50533228 Code(s): I10 - ESSENTIAL (PRIMARY) HYPERTENSION Status: Chronic Current Visit: Yes Qualifiers: Hypertension type: essential hypertension Qualified Code(s): I10 - Essential (primary) hypertension (4) CAD (coronary artery disease) SNOMED Code(s): 82287468 Code(s): I25.10 - ATHSCL HEART DISEASE OF [place] CORONARY ARTERY W/O ANG PCTRS Status: Chronic Current Visit: Yes (5) Hx of myocardial infarction SNOMED Code(s): 936768259 Code(s): I25.2 - OLD MYOCARDIAL INFARCTION Status: Chronic Current Visit : Yes (6) Anxiety and depression SNOMED Code(s): 93751286 Code(s): F41.9 - ANXIETY DISORDER, UNSPECIFIED; F32.9 - MAJOR DEPRESSIVE DISORDER, SINGLE EPISODE, UNSPECIFIED Status: Chronic Current Visit: Yes - Problem List Review Problem List Initiated/Reviewed/Updated: Yes - My Orders Last 24 Hours: My Active Orders 06/30/18 13:54 Intake and Output [RC] Q12H Oxygen Therapy [RC] PRN Telemetry Monitoring [Cardiac Monitoring] [RC] . DIRECTED Up With Assistance [RC] ASDIRECTED VTE/DVT Education [RC] PER UNIT ROUTINE Vital Signs [RC] Q4H OT Evaluation and Treatment [CONS] Routine PT Evaluation and Treatment [CONS] Routine Acetaminophen [Tylenol] 650 mg PO Q4H PRN Ondansetron [Zofran] 4 mg IVPUSH Q4H PRN Resuscitation Status Routine 06/30/18 14:01 Echo Comp wo Cont [US] Routine 06/30/18 15:00 Enoxaparin [Lovenox] 40 mg SUBCUT Q24H 06/30/18 15:37 Consult to Director Service [Consult to Diabetic Nurse Specialist] [CONS] Routine 06/30/18 21:00 Rosuvastatin [Crestor] 40 mg PO BEDTIME 06/30/18 Lunch Heart Healthy Diet [DIET] 07/01/18 09:00 Aspirin [Halfprin] 81 mg PO DAILY - Plan Plan:: This 57 year old male admitted with ataxia rule out new CVA 1. Ataxia: MRI/MRA revealed 1 cm focus in left posterior frontal lobe and centrum semiovale consist with acute infarct. Circulation unremarkable. ECHO pending. No afib noted on Telemetry. Continue ASA and statin. He was educated on importance of both of these with hx of CVA and [place]. PT/OT to evaluate and treat. No ST is needed due to no concern with swallowing. Lipid panel revealed triglycerides 155, Cholesterol 222, LDL 156 and HDL 35. 2. HTN: Stable, continue to allow permissive HTN until CVA is rule out. Monitor 3. DM Type 2: New onset. A1c 6.5. Due to CAD and vascular disease we need to treat with metformin. Will recommend 500 mg BID for now and following up with PCP. DM educator consulted for education. 4. CAD: Stable, no chest pain, Continue ASA and statin. VTE prophylaxis: Lovenox. Dispo: 1-2 days pending improvement.
[2018-07-01] MEDS: Enoxaparin 40 MG/0.4 ML Syringe SUBCUT SCH (15:50)
[2018-07-01] MEDS: metFORMIN 500 MG Tab PO SCH (17:43)
[2018-07-01] MEDS: Rosuvastatin 10 MG Tab PO SCH (20:43)
[2018-07-02] MEDS: metFORMIN 500 MG Tab PO SCH ×2 (07:51→17:39)
[2018-07-02] MEDS: Aspirin 81 MG Tab.EC PO SCH (08:58)
--- NOTE | 2018-07-02 13:43 | PCM.PN ---
- General Info Date of Service: 07/02/18 - Review of Systems Systems Review Comment:: reports strength has been improving, is unstable when walking stairs with PT - Patient Data Vitals - Most Recent: Last Vital Signs Temp 35.8 C 07/02/18 12:00 Pulse 67 07/02/18 12:00 Resp 20 07/02/18 12:00 BP 128/75 07/02/18 12:00 Pulse Ox 94 L 07/02/18 12:00 Weight - Most Recent: 89.811 kg I&O - Last 24 Hours: Intake & Output 07/01/18 07/02/18 07/02/18 22:59 06:59 14:59 Intake Total 1020 1060 Output Total 1260 1150 Balance -240 -90 Lab Results Last 24 Hours: Laboratory Results - last 24 hr 07/01/18 07/02/18 07/02/18 Range/Units 16:27 06:15 12:19 POC Glucose 103 108 75 (60-110) mg/dL Med Orders - Current: Current Medications Acetaminophen (Tylenol) 650 mg PO Q4H PRN PRN Reason: Pain (mild 1-3) Last Admin: 07/01/18 16:16 Dose: 650 mg Aspirin (Halfprin) 81 mg PO DAILY [facility] Last Admin: 07/02/18 08:58 Dose: 81 mg Enoxaparin Sodium (Lovenox) 40 mg SUBCUT Q24H [facility] Last Admin: 07/01/18 15:50 Dose: 40 mg Metformin HCl (Glucophage) 500 mg PO BIDMEALS [facility] Last Admin: 07/02/18 07:51 Dose: 500 mg Ondansetron HCl (Zofran) 4 mg IVPUSH Q4H PRN PRN Reason: Nausea Rosuvastatin Calcium (Crestor) 40 mg PO BEDTIME [facility] Last Admin: 07/01/18 20:43 Dose: 40 mg Sodium Chloride (Saline Flush) 10 ml FLUSH ASDIRECTED PRN PRN Reason: Keep Vein Open Sodium Chloride (Saline Flush) 2.5 ml FLUSH ASDIRECTED PRN PRN Reason: Keep Vein Open Sodium Chloride (Normal Saline) 10 ml IV ASDIRECTED PRN PRN Reason: IV Use - Exam General: Alert, Oriented Neck: Supple Lungs: Clear to Auscultation, Normal Respiratory Effort Cardiovascular: Regular Rate, Regular Rhythm GI/Abdominal Exam: Soft, Non-Tender Extremities: No Pedal Edema Skin: Warm, Dry, Intact Neurological: No New Focal Deficit - Problem List Review Problem List Initiated/Reviewed/Updated: Yes - My Orders Last 24 Hours: My Active Orders 07/02/18 13:40 Admission Status [Patient Status] [ADT] Routine 07/03/18 05:11 BASIC METABOLIC PANEL,BMP [CHEM] AM CBC WITH AUTO DIFF [HEME] AM 07/04/18 05:11 BASIC METABOLIC PANEL,BMP [CHEM] AM CBC WITH AUTO DIFF [HEME] AM - Plan Plan:: This 57 year old male admitted with CVA 1. CVA: MRI/MRA revealed 1 cm focus in left posterior frontal lobe and centrum semiovale consist with acute infarct. Circulation unremarkable. ECHO pending. No afib noted on Telemetry. Continue ASA and statin. PT concerned with home safety due to unsteadiness. 2. DM Type 2: New onset. A1c 6.5. Due to CAD and vascular disease we need to treat with metformin. Will recommend 500 mg BID for now and following up with PCP. DM educator consulted for education. 4. CAD: Stable, no chest pain, Continue ASA and statin. VTE prophylaxis: Lovenox. Dispo: 1-2 days pending improvement.
[2018-07-02] MEDS: Enoxaparin 40 MG/0.4 ML Syringe SUBCUT SCH (15:21)
[2018-07-02] MEDS: Rosuvastatin 10 MG Tab PO SCH (20:12)
[2018-07-03 06:58] LABS: CHLORIDE,CL 105 mmol/L (98-107); SODIUM,NA 140 mmol/L (136-148)
[2018-07-03] MEDS: metFORMIN 500 MG Tab PO SCH ×2 (07:57→17:28)
[2018-07-03] MEDS: Aspirin 81 MG Tab.EC PO SCH (08:42)
--- NOTE | 2018-07-03 11:28 | PCM.PN ---
- General Info Date of Service: 07/03/18 - Review of Systems Systems Review Comment:: feels dizzy when walking - Patient Data Vitals - Most Recent: Last Vital Signs Temp 36.6 C 07/03/18 08:00 Pulse 83 07/03/18 08:00 Resp 18 07/03/18 08:00 BP 122/86 07/03/18 08:00 Pulse Ox 94 L 07/03/18 08:00 Weight - Most Recent: 89.811 kg I&O - Last 24 Hours: Intake & Output 07/02/18 07/03/18 07/03/18 22:59 06:59 14:59 Intake Total 1020 600 120 Output Total 940 1175 Balance 80 -575 120 Lab Results Last 24 Hours: Laboratory Results - last 24 hr 07/02/18 07/02/18 07/03/18 Range/Units 12:19 16:54 06:21 WBC 5.03 (4.0-11.0) K/uL RBC 4.90 (4.50-5.90) M/uL Hgb 15.1 (13.0-17.0) g/dL Hct 47.0 (38.0-50.0) % MCV 95.9 (80.0-98.0) fL MCH 30.8 (27.0-32.0) pg MCHC 32.1 (31.0-37.0) g/dL RDW Std Deviation 47.5 (28.0-62.0) fl RDW Coeff of Janet 14 (11.0-15.0) % Plt Count 198 (150-400) K/uL MPV 10.90 (7.40-12.00) fL Neut % (Auto) 57.4 (48.0-80.0) % Lymph % (Auto) 32.0 (16.0-40.0) % [place] % (Auto) 7.8 (0.0-15.0) % Eos % (Auto) 2.2 (0.0-7.0) % Baso % (Auto) 0.6 (0.0-1.5) % Neut # (Auto) 2.9 (1.4-5.7) K/uL Lymph # (Auto) 1.6 (0.6-2.4) K/uL [place] # (Auto) 0.4 (0.0-0.8) K/uL Eos # (Auto) 0.1 (0.0-0.7) K/uL Baso # (Auto) 0.0 (0.0-0.1) K/uL Nucleated RBC % 0.0 /100WBC Nucleated RBCs # 0 K/uL Sodium (136-148) mmol/L Potassium (3.5-5.1) mmol/L Chloride (98-107) mmol/L Carbon Dioxide (21.0-32.0) mmol/L BUN (7.0-18.0) mg/dL Creatinine (0.8-1.3) mg/dL Est Cr Clr Drug Dosing mL/min Estimated GFR (MDRD) ml/min Glucose (74-106) mg/dL POC Glucose 75 108 (60-110) mg/dL Calcium (8.5-10.1) mg/dL 07/03/18 07/03/18 Range/Units 06:21 09:49 WBC (4.0-11.0) K/uL RBC (4.50-5.90) M/uL Hgb (13.0-17.0) g/dL Hct (38.0-50.0) % MCV (80.0-98.0) fL MCH (27.0-32.0) pg MCHC (31.0-37.0) g/dL RDW Std Deviation (28.0-62.0) fl RDW Coeff of Janet (11.0-15.0) % Plt Count (150-400) K/uL MPV (7.40-12.00) fL Neut % (Auto) (48.0-80.0) % Lymph % (Auto) (16.0-40.0) % [place] % (Auto) (0.0-15.0) % Eos % (Auto) (0.0-7.0) % Baso % (Auto) (0.0-1.5) % Neut # (Auto) (1.4-5.7) K/uL Lymph # (Auto) (0.6-2.4) K/uL [place] # (Auto) (0.0-0.8) K/uL Eos # (Auto) (0.0-0.7) K/uL Baso # (Auto) (0.0-0.1) K/uL Nucleated RBC % /100WBC Nucleated RBCs # K/uL Sodium 140 (136-148) mmol/L Potassium 4.4 (3.5-5.1) mmol/L Chloride 105 (98-107) mmol/L Carbon Dioxide 28.0 (21.0-32.0) mmol/L BUN 19 H (7.0-18.0) mg/dL Creatinine 1.0 (0.8-1.3) mg/dL Est Cr Clr Drug Dosing 72.66 mL/min Estimated GFR (MDRD) > 60.0 ml/min Glucose 109 H (74-106) mg/dL POC Glucose 158 H (60-110) mg/dL Calcium 10.3 H (8.5-10.1) mg/dL Med Orders - Current: Current Medications Acetaminophen (Tylenol) 650 mg PO Q4H PRN PRN Reason: Pain (mild 1-3) Last Admin: 07/01/18 16:16 Dose: 650 mg Aspirin (Halfprin) 81 mg PO DAILY [facility] Last Admin: 07/03/18 08:42 Dose: 81 mg Enoxaparin Sodium (Lovenox) 40 mg SUBCUT Q24H [facility] Last Admin: 07/02/18 15:21 Dose: 40 mg Metformin HCl (Glucophage) 500 mg PO BIDMEALS [facility] Last Admin: 07/03/18 07:57 Dose: 500 mg Ondansetron HCl (Zofran) 4 mg IVPUSH Q4H PRN PRN Reason: Nausea Rosuvastatin Calcium (Crestor) 40 mg PO BEDTIME [facility] Last Admin: 07/02/18 20:12 Dose: 40 mg Sodium Chloride (Saline Flush) 10 ml FLUSH ASDIRECTED PRN PRN Reason: Keep Vein Open Sodium Chloride (Saline Flush) 2.5 ml FLUSH ASDIRECTED PRN PRN Reason: Keep Vein Open Sodium Chloride (Normal Saline) 10 ml IV ASDIRECTED PRN PRN Reason: IV Use - Exam General: Alert, Oriented Neck: Supple Lungs: Clear to Auscultation, Normal Respiratory Effort, Rhonchi Cardiovascular: Regular Rate GI/Abdominal Exam: Soft, Non-Tender Extremities: Non-Tender, No Pedal Edema - Problem List Review Problem List Initiated/Reviewed/Updated: Yes - My Orders Last 24 Hours: My Active Orders 07/02/18 11:00 Admission Status [Patient Status] [ADT] Routine 07/04/18 05:11 BASIC METABOLIC PANEL,BMP [CHEM] AM CBC WITH AUTO DIFF [HEME] AM - Plan Plan:: This 57 year old male admitted with CVA 1. CVA: MRI/MRA revealed 1 cm focus in left posterior frontal lobe and centrum semiovale consist with acute infarct. Circulation unremarkable. ECHO pending. No afib noted on Telemetry. Continue ASA and statin. PT concerned with home safety due to unsteadiness. Will continue working with PT and check orthostatic blood pressure when walking 2. DM Type 2: New onset. A1c 6.5. Due to CAD and vascular disease we need to treat with metformin. Will recommend 500 mg BID for now and following up with PCP. DM educator consulted for education. 4. CAD: Stable, no chest pain, Continue ASA and statin. VTE prophylaxis: Lovenox. Dispo: 1-2 days pending improvement.
[2018-07-03] MEDS: Enoxaparin 40 MG/0.4 ML Syringe SUBCUT SCH (15:28)
[2018-07-03] MEDS: Citalopram 20 MG Tab PO SCH (16:24)
[2018-07-03] MEDS: Rosuvastatin 10 MG Tab PO SCH (20:41)
[2018-07-04 06:24] LABS: CHLORIDE,CL 105 mmol/L (98-107); SODIUM,NA 140 mmol/L (136-148)
[2018-07-04] MEDS: metFORMIN 500 MG Tab PO SCH (09:10)
[2018-07-04] MEDS: Citalopram 20 MG Tab PO SCH (09:11)
[2018-07-04] MEDS: Aspirin 81 MG Tab.EC PO SCH (09:14)
[2018-07-04 11:20] VITALS: BP 118/72
--- NOTE | 2018-07-04 11:56 | PCM.DCSUM1 ---
Discharge Summary - Hospital Course Brief History: This 57 year old male with pmh of CAD, HTN, and CVA presented initially to the clinic with complaints of R leg weakness, heaviness and spastic movements. He reports he noticed this around 0130 when he woke up to go to the bathroom. He reports it is really hard to explain when he is feeling. No overt pain. No overt numbness or tingling. Reports some sensation changes. Reports having knee pads on a few days ago, which were strapped to his knees and he kept having to tighten them because they were not staying in the same place. He was doing yard work at home the past couple days and reports he was doing well with this. He denies chest pain or shortness of breath. No palpitations. No neck pain, fevers, chills or URI symptoms. He denies abdominal pain or urinary troubles. No other neurological deficits. He denies smoking or alcohol use and no recreational drug use. Reports he stopped taking Crestor a couple weeks ago, says he ran out of medication. Also admits to not taking ASA regularly, but did take it this morning prior to appointment. In the ED CBC WNL. BMP negative. Troponin negative. EKG SR. Ua negative. Headt CT negative for acute intracranial process, stable encephalomalacia noted medial R occipital lobe. BP in the ED 150/80s, HR 80s. He will be admitted observation for R leg weakness rule out CVA. he was offered transfer to [place] in the ED which he declined and would like evaluation here in [place]. PCP Dr Santiago. Diagnosis: Stroke: No - Discharge Data Discharge Date: 07/04/18 Discharge Disposition: Home, Self-Care 01 Condition: Stable - Discharge Diagnosis/Problem(s) (1) Abnormal gait SNOMED Code(s): 68314804 ICD Code: R26.9 - UNSPECIFIED ABNORMALITIES OF GAIT AND MOBILITY Status: Acute Current Visit: Yes (2) History of CVA (cerebrovascular accident) SNOMED Code(s): 267988059 ICD Code: Z86.73 - PRSNL HX OF TIA (TIA), AND CEREB INFRC W/O RESID DEFICITS Status: Chronic Current Visit: Yes (3) HTN (hypertension) SNOMED Code(s): 36501983 ICD Code: I10 - ESSENTIAL (PRIMARY) HYPERTENSION Status: Chronic Current Visit: Yes Qualifiers: Hypertension type: essential hypertension Qualified Code(s): I10 - Essential (primary) hypertension (4) CAD (coronary artery disease) SNOMED Code(s): 23274456 ICD Code: I25.10 - ATHSCL HEART DISEASE OF [place] CORONARY ARTERY W/O ANG PCTRS Status: Chronic Current Visit: Yes (5) Hx of myocardial infarction SNOMED Code(s): 253287575 ICD Code: I25.2 - OLD MYOCARDIAL INFARCTION Status: Chronic Current Visit : Yes (6) Anxiety and depression SNOMED Code(s): 61473887 ICD Code: F41.9 - ANXIETY DISORDER, UNSPECIFIED; F32.9 - MAJOR DEPRESSIVE DISORDER, SINGLE EPISODE, UNSPECIFIED Status: Chronic Current Visit: Yes - Patient Summary/Data Consults: Consultations 06/30/18 13:54 OT Evaluation and Treatment [CONS] Routine PT Evaluation and Treatment [CONS] Routine 06/30/18 15:37 Consult to Associate Account Director [Consult to Diabetic Nurse Specialist] [CONS] Routine - Patient Instructions Diet: Heart Healthy Diet, Diabetic Diet Activity: As Tolerated Showering/Bathing: May Shower Notify Provider of: Fever, Increased Pain, Swelling and Redness, Drainage, Nausea and/or Vomiting - Discharge Plan *PRESCRIPTION DRUG MONITORING PROGRAM REVIEWED*: Not Applicable *COPY OF PRESCRIPTION DRUG MONITORING REPORT IN PATIENT OMAYRA: Not Applicable Prescriptions/Med Rec: metFORMIN [Glucophage] 500 mg PO BIDMEALS #60 tablet Home Medications: Home Meds Aspirin [Ecotrin] 81 mg PO DAILY 04/29/15 [History] Citalopram Hydrobromide [Celexa] 10 mg PO DAILY 04/29/15 [History] Omeprazole Magnesium [Prilosec Otc] 20 mg PO ACBREAKFAST 04/29/15 [History] Rosuvastatin [Crestor] 40 mg PO BEDTIME 04/29/15 [History] metFORMIN [Glucophage] 500 mg PO BIDMEALS #60 tablet 07/04/18 [Rx] Oxygen Therapy Mode: Room Air Patient Handouts: Ischemic Stroke, Uvan-ec-Rvuc, Metformin tablets Referrals: [facility] [Outside] Ana Santiago DO [Resident] - 07/08/18 2:30 pm - Discharge Summary/Plan Comment DC Time >30 min.: No Discharge Summary/Plan Comment: Admiting Diagnosis: Ataxia Discharge DIagnoses: CVA New onset DM type 2 PMH: HTN Hx CVA CAD Venu was admitted secondary to new onset ataxia. MRI/MRA revealed 1 cm focus in left posterior frontal lobe and centrum semiovale consist with acute infarct. Circulation unremarkable. He was continud on ASA and Crestor 40 mg daily. Permissive HTN allowed, but BPs continued to be well controlled without medications. A1c was ntoed to be 6.5, with CAD and CVA, opted for treatment with low dose Metformin for now, 500 mg BID. He is to follow up with PCP in 1 week. He was followed with PT here and was in need of walker to help stabilized gait, but steadily improved from admit. Telemetry did not show arrhythmia. ECHO obtained revealed EF 45-50% mildly decreased LV systolic function. His BP and FLomax medication will be held at discharge. Again follow with PCP regarding these He will be discharged home today with walker to assist with gait due to unsteadiness and R leg weakness from CVA. He will also have PT consult as outpatient to continue to improve strength and gait. He is to follow up with PCP in 1 week. He is to return to ED or clinic if concerns should arise. - General Info Date of Service: 07/04/18 Admission Dx/Problem (Free Text: Admission Diagnosis/Problem Admission Diagnosis/Problem CVA Subjective Update: Doing well this morning. No pain. AMbulating is easier and movement of R leg much better. Feels good and ready to go home. Functional Status: Reports: Pain Controlled, Tolerating Diet, Ambulating - Review of Systems General: Reports: No Symptoms HEENT: Reports: No Symptoms Pulmonary: Reports: No Symptoms. Denies: Shortness of Breath Cardiovascular: Reports: No Symptoms. Denies: Chest Pain, Lightheadedness Gastrointestinal: Reports: No Symptoms. Denies: Abdominal Pain Genitourinary: Reports: No Symptoms Neurological: Reports: Gait Disturbance (improving, near normal) Psychiatric: Reports: No Symptoms - Patient Data Vitals - Most Recent: Last Vital Signs Temp 98.1 F 07/04/18 11:17 Pulse 74 07/04/18 11:17 Resp 20 07/04/18 11:17 BP 118/72 07/04/18 11:17 Pulse Ox 96 07/04/18 11:17 Orthostatic Blood Pressure [ 121/76 Standing] Orthostatic Blood Pressure [ 121/75 Sitting] Orthostatic Blood Pressure [ 128/79 Supine] Weight - Most Recent: 88.451 kg I&O - Last 24 hours: Intake & Output 07/03/18 07/04/18 07/04/18 22:59 06:59 14:59 Intake Total 1350 660 Output Total 700 1450 Balance 650 -790 Lab Results - Last 24 hrs: Laboratory Results - last 24 hr 07/03/18 07/04/18 07/04/18 Range/Units 16:45 05:25 05:25 WBC 5.37 (4.0-11.0) K/uL RBC 4.84 (4.50-5.90) M/uL Hgb 15.0 (13.0-17.0) g/dL Hct 46.3 (38.0-50.0) % MCV 95.7 (80.0-98.0) fL MCH 31.0 (27.0-32.0) pg MCHC 32.4 (31.0-37.0) g/dL RDW Std Deviation 47.0 (28.0-62.0) fl RDW Coeff of Janet 14 (11.0-15.0) % Plt Count 191 (150-400) K/uL MPV 11.50 (7.40-12.00) fL Neut % (Auto) 53.4 (48.0-80.0) % Lymph % (Auto) 34.1 (16.0-40.0) % [place] % (Auto) 9.3 (0.0-15.0) % Eos % (Auto) 2.6 (0.0-7.0) % Baso % (Auto) 0.6 (0.0-1.5) % Neut # (Auto) 2.9 (1.4-5.7) K/uL Lymph # (Auto) 1.8 (0.6-2.4) K/uL [place] # (Auto) 0.5 (0.0-0.8) K/uL Eos # (Auto) 0.1 (0.0-0.7) K/uL Baso # (Auto) 0.0 (0.0-0.1) K/uL Nucleated RBC % 0.0 /100WBC Nucleated RBCs # 0 K/uL Sodium 140 (136-148) mmol/L Potassium 4.8 (3.5-5.1) mmol/L Chloride 105 (98-107) mmol/L Carbon Dioxide 27.8 (21.0-32.0) mmol/L BUN 19 H (7.0-18.0) mg/dL Creatinine 1.0 (0.8-1.3) mg/dL Est Cr Clr Drug Dosing 72.66 mL/min Estimated GFR (MDRD) > 60.0 ml/min Glucose 106 (74-106) mg/dL POC Glucose 86 (60-110) mg/dL Calcium 10.5 H (8.5-10.1) mg/dL 07/04/18 07/04/18 Range/Units 06:25 11:50 WBC (4.0-11.0) K/uL RBC (4.50-5.90) M/uL Hgb (13.0-17.0) g/dL Hct (38.0-50.0) % MCV (80.0-98.0) fL MCH (27.0-32.0) pg MCHC (31.0-37.0) g/dL RDW Std Deviation (28.0-62.0) fl RDW Coeff of Janet (11.0-15.0) % Plt Count (150-400) K/uL MPV (7.40-12.00) fL Neut % (Auto) (48.0-80.0) % Lymph % (Auto) (16.0-40.0) % [place] % (Auto) (0.0-15.0) % Eos % (Auto) (0.0-7.0) % Baso % (Auto) (0.0-1.5) % Neut # (Auto) (1.4-5.7) K/uL Lymph # (Auto) (0.6-2.4) K/uL [place] # (Auto) (0.0-0.8) K/uL Eos # (Auto) (0.0-0.7) K/uL Baso # (Auto) (0.0-0.1) K/uL Nucleated RBC % /100WBC Nucleated RBCs # K/uL Sodium (136-148) mmol/L Potassium (3.5-5.1) mmol/L Chloride (98-107) mmol/L Carbon Dioxide (21.0-32.0) mmol/L BUN (7.0-18.0) mg/dL Creatinine (0.8-1.3) mg/dL Est Cr Clr Drug Dosing mL/min Estimated GFR (MDRD) ml/min Glucose (74-106) mg/dL POC Glucose 111 H 103 (60-110) mg/dL Calcium (8.5-10.1) mg/dL Med Orders - Current: Current Medications Acetaminophen (Tylenol) 650 mg PO Q4H PRN PRN Reason: Pain (mild 1-3) Last Admin: 07/01/18 16:16 Dose: 650 mg Aspirin (Halfprin) 81 mg PO DAILY [facility] Last Admin: 07/04/18 09:14 Dose: 81 mg Citalopram Hydrobromide (Celexa) 20 mg PO DAILY [facility] Last Admin: 07/04/18 09:11 Dose: 20 mg Enoxaparin Sodium (Lovenox) 40 mg SUBCUT Q24H [facility] Last Admin: 07/03/18 15:28 Dose: 40 mg Metformin HCl (Glucophage) 500 mg PO BIDMEALS [facility] Last Admin: 07/04/18 09:10 Dose: 500 mg Ondansetron HCl (Zofran) 4 mg IVPUSH Q4H PRN PRN Reason: Nausea Rosuvastatin Calcium (Crestor) 40 mg PO BEDTIME [facility] Last Admin: 07/03/18 20:41 Dose: 40 mg Sodium Chloride (Saline Flush) 10 ml FLUSH ASDIRECTED PRN PRN Reason: Keep Vein Open Sodium Chloride (Saline Flush) 2.5 ml FLUSH ASDIRECTED PRN PRN Reason: Keep Vein Open Sodium Chloride (Normal Saline) 10 ml IV ASDIRECTED PRN PRN Reason: IV Use - Exam General: Reports: Alert, Oriented, Cooperative HEENT: Reports: Pupils Equal, Pupils Reactive Lungs: Reports: Clear to Auscultation, Normal Respiratory Effort Cardiovascular: Reports: Regular Rate, Regular Rhythm, No Murmurs. Denies: Irregular Rhythm GI/Abdominal Exam: Normal Bowel Sounds, Soft, Non-Tender, No Distention Back Exam: Reports: Normal Inspection, Full Range of Motion Neurological: Reports: No New Focal Deficit Psy/Mental Status: Reports: Alert, Normal Affect, Normal Mood
--- NOTE | 2018-07-04 14:05 | ECHO ---
EXAM DATE: 07/02/18 PATIENT'S AGE: 57 The echocardiogram report can be seen in this patient's EMR (Electronic Medical Record) in the Reports section. The report has also been scanned into PACs. KIMBERLI
== END 2018-07-04 13:30 | disposition home or self-care (01) | DRG 66 ==
LOC: MW.ED 11:16 → MW.MS 13:53 → OBSVTOIN 07-02 13:40 → MW.MS 07-02 18:59
PROVIDERS: ADMIT Internal Medicine; ATTEND Internal Medicine
DX: I63.9 Cerebral infarction, unspecified (principal); G83.11 Monoplegia of lower limb affecting right dominant side; R26.0 Ataxic gait; I25.10 Atherosclerotic heart disease of native coronary artery without angina pectoris; I10 Essential (primary) hypertension; F41.9 Anxiety disorder, unspecified; F32.9 Major depressive disorder, single episode, unspecified; E11.9 Type 2 diabetes mellitus without complications; I69.398 Other sequelae of cerebral infarction; H53.8 Other visual disturbances; E78.00 Pure hypercholesterolemia, unspecified; K21.9 Gastro-esophageal reflux disease without esophagitis; N40.0 Benign prostatic hyperplasia without lower urinary tract symptoms; E66.9 Obesity, unspecified; Z68.31 Body mass index [BMI] 31.0-31.9, adult; I25.2 Old myocardial infarction; Z85.72 Personal history of non-Hodgkin lymphomas; Z79.899 Other long term (current) drug therapy; Z79.82 Long term (current) use of aspirin; Z95.5 Presence of coronary angioplasty implant and graft
CPT/HCPCS: 36415; 70450; 70450-26; 70544; 70544-26; 70549; 70549-26; 70553; 70553-26; 80048; 80053; 80061; 81001; 82962; 83036; 84443; 84484; 85025; 85610; 85730; 93005; 93306; 97110-GP; 97161-GP; 97165-GO; 97530-GP; 99284; 99285-25; A9270-GY; J1650

== ENCOUNTER 2018-07-29 16:28 | Observation (INO) | payer OTHER ==
[2018-07-29] MEDS ORDERED: Sodium Chloride 0.9% 1,000 ML IV ONE (16:31)
--- NOTE | 2018-07-29 16:40 | EDM.PDOC ---
ED HPI GENERAL MEDICAL PROBLEM - General Chief Complaint: Neuro Symptoms/Deficits Stated Complaint: AMB Time Seen by Provider: 07/29/18 16:30 Source of Information: Reports: Patient History Limitations: Reports: No Limitations - History of Present Illness INITIAL COMMENTS - FREE TEXT/NARRATIVE: HISTORY AND PHYSICAL: History of present illness: Patient is a 57-year-old male who presents to the emergency room today with complaints of generalized weakness, dizziness and nausea since this afternoon. Patient was admitted to our facility on 06/30/18 for a CVA. Patient reports that he completed physical therapy for right sided weakness and deficits on Wednesday. He has slowly been returning to his normal activities. States he is completing 5-8 hours of work per day. States he did have a Z monitor/Holter monitor that he recently turned in, this was ordered by Dr. Mckeon. These results are not yet available. Today while at work he had felt fine. Around noon he did have to take a break as he did feel "exhausted". He states as the day had gone on he felt increased weakness and intermittent dizziness. He did call EMS to be evaluated through the emergency room. That time he did develop some nausea. He denies any recent head injury, trauma or falls. Patient denies any fever, chills, headache, change in vision, syncope or near syncope. Denies any chest pain, back pain, shortness of breath or cough. Denies any abdominal pain, vomiting, diarrhea, constipation or dysuria. Has not noted any blood in urine or stool. Patient has been eating and drinking appropriately. EMS reports that he has an NIH scale of 0, GCS 15. Blood sugar upon arrival is 112. Past medical history of coronary artery disease, hypertension, CVA and borderline type 2 diabetes. Review of systems: As per history of present illness and below otherwise all systems reviewed and negative. Past medical history: As per history of present illness and as reviewed below otherwise noncontributory. Surgical history: As per history of present illness and as reviewed below otherwise noncontributory. Social history: See social history for further information Family history: As per history of present illness and as reviewed below otherwise noncontributory. Physical exam: General: Well-developed and well-nourished 57-year-old male. Alert and oriented. Nontoxic appearing and in no acute distress. HEENT: Atraumatic, normocephalic, pupils equal and reactive bilaterally, negative for conjunctival pallor or scleral icterus, mucous membranes moist, TMs normal bilaterally, throat clear, neck supple, nontender, trachea midline. No drooling or trismus noted. No meningeal signs. No hot potato voice noted. Lungs: Clear to auscultation, breath sounds equal bilaterally, chest nontender. Heart: S1S2, regular rate and rhythm without overt murmur Abdomen: Soft, nondistended, nontender. Negative for masses or hepatosplenomegaly. Negative for costovertebral tenderness. Pelvis: Stable nontender. Genitourinary: Deferred. Rectal: Deferred. Skin: Intact, warm, dry. No lesions or rashes noted. Extremities: Atraumatic, moves all extremities per self without difficulty or deficits, negative for cords or calf pain. Neurovascular unremarkable. Neuro: Awake, alert, oriented. Cranial nerves II through XII unremarkable. Cerebellum unremarkable. Motor and sensory unremarkable throughout. Exam nonfocal. Notes: 06/30/2018 MRA/MRI: 1 cm focus of diffusion restriction in the left posterior frontal lobe and centrum semiovale insistent with acute infarct. Chronic infarct in the medial aspect of the right occipital cortex. Patient is alert and oriented. Able to follow commands appropriately. While talking with the patient does take him a few moments to find the words he is looking for. He states this is normal since his past CVA. Reports some left sided peripheral visual changes related to his last stroke. No new neurological findings; NIH 0 and GCS 15. Vital signs are stable and have been reviewed by me. Lab work is unremarkable. Chest x-ray shows no acute findings. Head CT shows no acute intracranial findings. Mild age-related brain atrophy and chronic infarct in the right occipital lobe. Patient states he does feel some improvement after the IV fluids. His vital signs remained stable. Upon trying to get orthostatic vital signs he did become very unbalanced on his feet. Did offer patient observation admission which she is agreeable. Dr. Meyer was consulted on this case. We'll watch overnight for continued evaluation and monitoring. Diagnostics: CBC, CMP, troponin, EKG, one view chest, head CT, orthostatic vital signs Therapeutics: IV fluid Impression: History of CVA Generalized Weakness Plan: Observation admission to Med/Surg Definitive disposition and diagnosis as appropriate pending reevaluation and review of above. - Related Data Allergies Allergy/AdvReac Type Severity Reaction Status Date / Time No Known Allergies Allergy Verified 07/29/18 16:29 Home Meds: Home Meds Aspirin [Ecotrin] 81 mg PO DAILY 04/29/15 [History] metFORMIN [Glucophage] 500 mg PO BIDMEALS #60 tablet 07/04/18 [Rx] Metoprolol Succinate/HCTZ [Metoprolol ER-Hctz 100-12.5 mg] 1 tab PO DAILY [History] metFORMIN [Glucophage XR] 500 mg PO DAILY 07/29/18 [History] Past Medical History HEENT History: Reports: Impaired Vision Other HEENT History: Left eye was affected when he had a stroke. Peripheral vision was affected Cardiovascular History: Reports: CAD, High Cholesterol, Hypertension, HI, Stents Respiratory History: Reports: None Gastrointestinal History: Reports: Diverticulosis, GERD, Other (See Below) Other Gastrointestinal History: hx c-diff x3 Genitourinary History: Reports: BPH Musculoskeletal History: Reports: Fracture, Gout Neurological History: Reports: CVA Psychiatric History: Reports: Anxiety, Depression Endocrine/Metabolic History: Reports: Obesity/BMI 30+ Hematologic History: Reports: None Immunologic History: Reports: None Oncologic (Cancer) History: Reports: Lymphoma Dermatologic History: Reports: None - Infectious Disease History Infectious Disease History: Reports: Chicken Pox, Measles - Past Surgical History Head Surgeries/Procedures: Reports: None Cardiovascular Surgical History: Reports: Coronary Artery Stent GI Surgical History: Reports: Appendectomy, Hernia, Inguinal Musculoskeletal Surgical History: Reports: Other (See Below) Social & Family History - Family History Family Medical History: Noncontributory - Caffeine Use Caffeine Use: Reports: Coffee, Soda - Living Situation & Occupation Living situation: Reports: Single Occupation: Employed ED ROS GENERAL - Review of Systems Review Of Systems: ROS reveals no pertinent complaints other than HPI. ED EXAM, NEURO - Physical Exam Exam: See Below (See dictation) Course - Vital Signs Last Recorded V/S: Last Vital Signs Temp 96.9 F 07/29/18 16:31 Pulse 67 07/29/18 16:31 Resp 18 07/29/18 16:31 BP 131/81 07/29/18 16:31 Pulse Ox 97 07/29/18 16:31 Orthostatic Blood Pressure [ 126/73 Sitting] Orthostatic Blood Pressure [ 128/79 Supine] - Orders/Labs/Meds Orders: Active Orders 24 hr Category Date Time Status EKG Documentation Completion [RC] STAT Care 07/29/18 16:31 Active Orthostatic Vital Signs [RC] ASDIRECTED Care 07/29/18 16:31 Active Sodium Chloride 0.9% [Normal Saline] 1,000 ml Med 07/29/18 16:31 Active IV STAT Medication Orders Sodium Chloride (Normal Saline) 1,000 mls @ 150 mls/hr IV STAT ONE Stop: 07/29/18 23:10 Last Admin: 07/29/18 17:30 Dose: 150 mls/hr Labs: Laboratory Tests 07/29/18 07/29/18 07/29/18 Range/Units 16:43 16:43 16:43 WBC 4.99 (4.0-11.0) K/uL RBC 3.98 L (4.50-5.90) M/uL Hgb 12.5 L (13.0-17.0) g/dL Hct 37.4 L (38.0-50.0) % MCV 94.0 (80.0-98.0) fL MCH 31.4 (27.0-32.0) pg MCHC 33.4 (31.0-37.0) g/dL RDW Std Deviation 45.3 (28.0-62.0) fl RDW Coeff of Janet 13 (11.0-15.0) % Plt Count 161 (150-400) K/uL MPV 11.20 (7.40-12.00) fL Neut % (Auto) 58.5 (48.0-80.0) % Lymph % (Auto) 29.3 (16.0-40.0) % [place] % (Auto) 9.4 (0.0-15.0) % Eos % (Auto) 2.4 (0.0-7.0) % Baso % (Auto) 0.4 (0.0-1.5) % Neut # (Auto) 2.9 (1.4-5.7) K/uL Lymph # (Auto) 1.5 (0.6-2.4) K/uL [place] # (Auto) 0.5 (0.0-0.8) K/uL Eos # (Auto) 0.1 (0.0-0.7) K/uL Baso # (Auto) 0.0 (0.0-0.1) K/uL Nucleated RBC % 0.0 /100WBC Nucleated RBCs # 0 K/uL INR 1.02 Sodium 138 (136-148) mmol/L Potassium 3.8 (3.5-5.1) mmol/L Chloride 104 (98-107) mmol/L Carbon Dioxide 25.2 (21.0-32.0) mmol/L BUN 21 H (7.0-18.0) mg/dL Creatinine 0.9 (0.8-1.3) mg/dL Est Cr Clr Drug Dosing 80.73 mL/min Estimated GFR (MDRD) > 60.0 ml/min Glucose 96 (74-106) mg/dL Calcium 9.3 (8.5-10.1) mg/dL Total Bilirubin 0.3 (0.2-1.0) mg/dL AST 28 (15-37) IU/L ALT 42 (14-63) IU/L Alkaline Phosphatase 58 (46-116) U/L Troponin I < 0.050 (0.000-0.056) ng/mL Total Protein 6.7 (6.4-8.2) g/dL Albumin 3.6 (3.4-5.0) g/dL Globulin 3.1 (2.6-4.0) g/dL Albumin/Globulin Ratio 1.2 (0.9-1.6) Urine Color Urine Appearance Urine pH (5.0-8.0) Ur Specific [place] (1.001-1.035) Urine Protein (NEGATIVE) mg/dL Urine Glucose (UA) (NEGATIVE) mg/dL Urine Ketones (NEGATIVE) mg/dL Urine Occult Blood (NEGATIVE) Urine Nitrite (NEGATIVE) Urine Bilirubin (NEGATIVE) Urine Urobilinogen (<2.0) EU/dL Ur Leukocyte Esterase (NEGATIVE) 07/29/18 Range/Units 17:01 WBC (4.0-11.0) K/uL RBC (4.50-5.90) M/uL Hgb (13.0-17.0) g/dL Hct (38.0-50.0) % MCV (80.0-98.0) fL MCH (27.0-32.0) pg MCHC (31.0-37.0) g/dL RDW Std Deviation (28.0-62.0) fl RDW Coeff of Janet (11.0-15.0) % Plt Count (150-400) K/uL MPV (7.40-12.00) fL Neut % (Auto) (48.0-80.0) % Lymph % (Auto) (16.0-40.0) % [place] % (Auto) (0.0-15.0) % Eos % (Auto) (0.0-7.0) % Baso % (Auto) (0.0-1.5) % Neut # (Auto) (1.4-5.7) K/uL Lymph # (Auto) (0.6-2.4) K/uL [place] # (Auto) (0.0-0.8) K/uL Eos # (Auto) (0.0-0.7) K/uL Baso # (Auto) (0.0-0.1) K/uL Nucleated RBC % /100WBC Nucleated RBCs # K/uL INR Sodium (136-148) mmol/L Potassium (3.5-5.1) mmol/L Chloride (98-107) mmol/L Carbon Dioxide (21.0-32.0) mmol/L BUN (7.0-18.0) mg/dL Creatinine (0.8-1.3) mg/dL Est Cr Clr Drug Dosing mL/min Estimated GFR (MDRD) ml/min Glucose (74-106) mg/dL Calcium (8.5-10.1) mg/dL Total Bilirubin (0.2-1.0) mg/dL AST (15-37) IU/L ALT (14-63) IU/L Alkaline Phosphatase (46-116) U/L Troponin I (0.000-0.056) ng/mL Total Protein (6.4-8.2) g/dL Albumin (3.4-5.0) g/dL Globulin (2.6-4.0) g/dL Albumin/Globulin Ratio (0.9-1.6) Urine Color YELLOW Urine Appearance CLEAR Urine pH 6.5 (5.0-8.0) Ur Specific [place] 1.020 (1.001-1.035) Urine Protein NEGATIVE (NEGATIVE) mg/dL Urine Glucose (UA) NEGATIVE (NEGATIVE) mg/dL Urine Ketones NEGATIVE (NEGATIVE) mg/dL Urine Occult Blood NEGATIVE (NEGATIVE) Urine Nitrite NEGATIVE (NEGATIVE) Urine Bilirubin NEGATIVE (NEGATIVE) Urine Urobilinogen 0.2 (<2.0) EU/dL Ur Leukocyte Esterase NEGATIVE (NEGATIVE) Meds: Medications Generic Name Dose Route Start Last Admin Trade Name Freq PRN Reason Stop Dose Admin Sodium Chloride 1,000 mls @ 150 mls/hr 07/29/18 16:31 07/29/18 17:30 Normal Saline IV 07/29/18 23:10 150 mls/hr STAT ONE Administration Departure - Departure Time of Disposition: 18:24 Disposition: Refer to Observation Clinical Impression: Generalized weakness, History of stroke - Discharge Information Referrals: PCP,Unknown [Primary Care Provider] - Forms: ED Department Discharge - My Orders Last 24 Hours: My Active Orders 07/29/18 16:31 EKG Documentation Completion [RC] STAT Orthostatic Vital Signs [RC] ASDIRECTED Sodium Chloride 0.9% [Normal Saline] 1,000 ml IV STAT - Assessment/Plan Last 24 Hours: My Active Orders 07/29/18 16:31 EKG Documentation Completion [RC] STAT Orthostatic Vital Signs [RC] ASDIRECTED Sodium Chloride 0.9% [Normal Saline] 1,000 ml IV STAT
[2018-07-29 17:18] LABS: CHLORIDE,CL 104 mmol/L (98-107); SODIUM,NA 138 mmol/L (136-148)
--- NOTE | 2018-07-29 17:39 | CR ---
INDICATION: Pt w/weakness. 1 previous image sent. TECHNIQUE: Chest 1 view. COMPARISON: 01/31/18 FINDINGS: Cardiovascular and mediastinum: Heart size and vasculature are normal in caliber and appearance. Mediastinum is within normal limits. Lungs and pleural space: Lungs are clear. No sign of infiltrate or mass. No sign of pleural effusion. No pneumothorax. Bones and soft tissues: No significant findings. IMPRESSION: Unremarkable chest. Dictated by: Stevo Best MD @ 07/29/2018 17:37:27 (Electronically Signed)
--- NOTE | 2018-07-29 18:16 | CT ---
INDICATION: weakness CT HEAD WITHOUT CONTRAST TECHNIQUE: Multiple axial CT images were performed through the head without intravenous contrast administration. COMPARISON: 06/30/[address] FINDINGS: No acute intracranial hemorrhage is identified. No extra-axial collections are evident and there is no mass effect or midline shift. There is unchanged very mild diffuse age-related brain atrophy. Ventricular size and configuration are within normal limits for the patient`s age. Boyce-white differentiation is within normal limits. There is an unchanged chronic infarct in the medial right occipital lobe. Osseous structures are within normal limits and no fractures are seen. Included portions of the paranasal sinuses and mastoid air cells are normally aerated aside from an unchanged small left mastoid effusion. IMPRESSION: 1. No acute intracranial abnormality identified. 2. Mild age-related brain atrophy and chronic infarct in the right occipital lobe. OPAL EVANGELISTA MD [employer] Dictated by Freddie Evangelista MD @ 07/29/2018 6:14:43 PM Dictated by: Freddie Evangelista MD @ 07/29/2018 18:15:11 (Electronically Signed)
[2018-07-29] MEDS: Insulin Aspart 100 Units/ML 3 ML Pen SUBCUT SCH (20:48)
[2018-07-29] MEDS: metFORMIN 500 MG Tab.ER PO SCH (20:53)
[2018-07-29] MEDS: Sodium Chloride 0.9% 1,000 ML IV SCH (20:54)
--- NOTE | 2018-07-29 23:49 | PCM.HP ---
H&P History of Present Illness - General Date of Service: 07/29/18 Admit Problem/Dx: Admission Diagnosis/Problem Admission Diagnosis/Problem Weakness - History of Present Illness Initial Comments - Free Text/Narative: 57 year old male with pmh of CAD, HTN, DM, who was admitted last month for acute stroke. His ataxia had resolved from his stroke and he went back to work. Today he report working eight hours with some moderate intensity of labor. He report feeling exhausted and not being able to stand up after sitting down to rest. He feels like he overworked himself. He denies the cordination and leg problems he had during his last stroke. In the ED he was evaluated with CT scan of head which did not show any acute findings. He was noted to be unsteady on his feet during orthostatic vital checks which prompted his admission. He was given IV fluids and now is able to stand up. - Related Data Allergies/Adverse Reactions: Allergies Allergy/AdvReac Type Severity Reaction Status Date / Time No Known Allergies Allergy Verified 07/29/18 16:29 Home Medications: Home Meds Aspirin [Ecotrin] 81 mg PO DAILY 04/29/15 [History] metFORMIN [Glucophage] 500 mg PO BIDMEALS #60 tablet 07/04/18 [Rx] Metoprolol Succinate/HCTZ [Metoprolol ER-Hctz 100-12.5 mg] 1 tab PO DAILY [History] metFORMIN [Glucophage XR] 500 mg PO DAILY 07/29/18 [History] Past Medical History HEENT History: Reports: Impaired Vision Other HEENT History: Left eye was affected when he had a stroke. Peripheral vision was affected Cardiovascular History: Reports: CAD, High Cholesterol, Hypertension, DC, Stents Respiratory History: Reports: None Gastrointestinal History: Reports: Diverticulosis, GERD, Other (See Below) Other Gastrointestinal History: hx c-diff x3 Genitourinary History: Reports: BPH Musculoskeletal History: Reports: Fracture, Gout Neurological History: Reports: CVA Other Neuro History: Last CVA was on June 30, 2018. Psychiatric History: Reports: Anxiety, Depression Endocrine/Metabolic History: Reports: Obesity/BMI 30+ Hematologic History: Reports: None Immunologic History: Reports: None Oncologic (Cancer) History: Reports: Lymphoma Dermatologic History: Reports: None - Infectious Disease History Infectious Disease History: Reports: Chicken Pox, Measles - Past Surgical History Head Surgeries/Procedures: Reports: None Cardiovascular Surgical History: Reports: Coronary Artery Stent GI Surgical History: Reports: Appendectomy, Hernia, Inguinal Musculoskeletal Surgical History: Reports: Other (See Below) Social & Family History - Family History Family Medical History: Noncontributory - Tobacco Use Smoking Status *Q: Never Smoker Second Hand Smoke Exposure: No - Caffeine Use Caffeine Use: Reports: Coffee - Recreational Drug Use Recreational Drug Use: No - Living Situation & Occupation Living situation: Reports: Single Occupation: Employed H&P Review of Systems - Review of Systems: Review Of Systems: ROS reveals no pertinent complaints other than HPI. Exam - Exam Exam: See Below - Vital Signs Vital Signs: Last Vital Signs Temp 36.6 C 07/29/18 20:00 Pulse 60 07/29/18 20:00 Resp 18 07/29/18 20:00 BP 143/83 H 07/29/18 20:00 Pulse Ox 95 07/29/18 19:40 Orthostatic Blood Pressure [ 126/73 Sitting] Orthostatic Blood Pressure [ 128/79 Supine] Weight: 90.083 kg - Exam General: Alert, Oriented HEENT: Mucosa Moist & [place] Neck: Supple Lungs: Clear to Auscultation, Normal Respiratory Effort Cardiovascular: Regular Rate, Regular Rhythm GI/Abdominal Exam: Normal Bowel Sounds, Soft, Non-Tender Extremities: No Pedal Edema Skin: Warm, Dry, Intact Neurological: Cranial Nerves Intact, Reflexes Equal Bilateral, Strength Equal Bilateral, Normal Gait, Normal Speech, Normal Tone, Sensation Intact. No: Focal Deficit - Patient Data Lab Results Last 24 hrs: Laboratory Results - last 24 hr 07/29/18 07/29/18 07/29/18 Range/Units 16:43 16:43 16:43 WBC 4.99 (4.0-11.0) K/uL RBC 3.98 L (4.50-5.90) M/uL Hgb 12.5 L (13.0-17.0) g/dL Hct 37.4 L (38.0-50.0) % MCV 94.0 (80.0-98.0) fL MCH 31.4 (27.0-32.0) pg MCHC 33.4 (31.0-37.0) g/dL RDW Std Deviation 45.3 (28.0-62.0) fl RDW Coeff of Janet 13 (11.0-15.0) % Plt Count 161 (150-400) K/uL MPV 11.20 (7.40-12.00) fL Neut % (Auto) 58.5 (48.0-80.0) % Lymph % (Auto) 29.3 (16.0-40.0) % [place] % (Auto) 9.4 (0.0-15.0) % Eos % (Auto) 2.4 (0.0-7.0) % Baso % (Auto) 0.4 (0.0-1.5) % Neut # (Auto) 2.9 (1.4-5.7) K/uL Lymph # (Auto) 1.5 (0.6-2.4) K/uL [place] # (Auto) 0.5 (0.0-0.8) K/uL Eos # (Auto) 0.1 (0.0-0.7) K/uL Baso # (Auto) 0.0 (0.0-0.1) K/uL Nucleated RBC % 0.0 /100WBC Nucleated RBCs # 0 K/uL INR 1.02 Sodium 138 (136-148) mmol/L Potassium 3.8 (3.5-5.1) mmol/L Chloride 104 (98-107) mmol/L Carbon Dioxide 25.2 (21.0-32.0) mmol/L BUN 21 H (7.0-18.0) mg/dL Creatinine 0.9 (0.8-1.3) mg/dL Est Cr Clr Drug Dosing 80.73 mL/min Estimated GFR (MDRD) > 60.0 ml/min Glucose 96 (74-106) mg/dL POC Glucose (60-110) mg/dL Calcium 9.3 (8.5-10.1) mg/dL Total Bilirubin 0.3 (0.2-1.0) mg/dL AST 28 (15-37) IU/L ALT 42 (14-63) IU/L Alkaline Phosphatase 58 (46-116) U/L Troponin I < 0.050 (0.000-0.056) ng/mL Total Protein 6.7 (6.4-8.2) g/dL Albumin 3.6 (3.4-5.0) g/dL Globulin 3.1 (2.6-4.0) g/dL Albumin/Globulin Ratio 1.2 (0.9-1.6) Urine Color Urine Appearance Urine pH (5.0-8.0) Ur Specific [place] (1.001-1.035) Urine Protein (NEGATIVE) mg/dL Urine Glucose (UA) (NEGATIVE) mg/dL Urine Ketones (NEGATIVE) mg/dL Urine Occult Blood (NEGATIVE) Urine Nitrite (NEGATIVE) Urine Bilirubin (NEGATIVE) Urine Urobilinogen (<2.0) EU/dL Ur Leukocyte Esterase (NEGATIVE) 07/29/18 07/29/18 Range/Units 17:01 20:45 WBC (4.0-11.0) K/uL RBC (4.50-5.90) M/uL Hgb (13.0-17.0) g/dL Hct (38.0-50.0) % MCV (80.0-98.0) fL MCH (27.0-32.0) pg MCHC (31.0-37.0) g/dL RDW Std Deviation (28.0-62.0) fl RDW Coeff of Janet (11.0-15.0) % Plt Count (150-400) K/uL MPV (7.40-12.00) fL Neut % (Auto) (48.0-80.0) % Lymph % (Auto) (16.0-40.0) % [place] % (Auto) (0.0-15.0) % Eos % (Auto) (0.0-7.0) % Baso % (Auto) (0.0-1.5) % Neut # (Auto) (1.4-5.7) K/uL Lymph # (Auto) (0.6-2.4) K/uL [place] # (Auto) (0.0-0.8) K/uL Eos # (Auto) (0.0-0.7) K/uL Baso # (Auto) (0.0-0.1) K/uL Nucleated RBC % /100WBC Nucleated RBCs # K/uL INR Sodium (136-148) mmol/L Potassium (3.5-5.1) mmol/L Chloride (98-107) mmol/L Carbon Dioxide (21.0-32.0) mmol/L BUN (7.0-18.0) mg/dL Creatinine (0.8-1.3) mg/dL Est Cr Clr Drug Dosing mL/min Estimated GFR (MDRD) ml/min Glucose (74-106) mg/dL POC Glucose 80 (60-110) mg/dL Calcium (8.5-10.1) mg/dL Total Bilirubin (0.2-1.0) mg/dL AST (15-37) IU/L ALT (14-63) IU/L Alkaline Phosphatase (46-116) U/L Troponin I (0.000-0.056) ng/mL Total Protein (6.4-8.2) g/dL Albumin (3.4-5.0) g/dL Globulin (2.6-4.0) g/dL Albumin/Globulin Ratio (0.9-1.6) Urine Color YELLOW Urine Appearance CLEAR Urine pH 6.5 (5.0-8.0) Ur Specific [place] 1.020 (1.001-1.035) Urine Protein NEGATIVE (NEGATIVE) mg/dL Urine Glucose (UA) NEGATIVE (NEGATIVE) mg/dL Urine Ketones NEGATIVE (NEGATIVE) mg/dL Urine Occult Blood NEGATIVE (NEGATIVE) Urine Nitrite NEGATIVE (NEGATIVE) Urine Bilirubin NEGATIVE (NEGATIVE) Urine Urobilinogen 0.2 (<2.0) EU/dL Ur Leukocyte Esterase NEGATIVE (NEGATIVE) Result Diagrams: 07/29/18 16:43 07/29/18 16:43 Problem List Initiated/Reviewed/Updated: Yes Orders Last 24hrs: Active Orders 24 hr Category Date Time Status Admission Status [Patient Status] [ADT] Stat ADT 07/29/18 18:24 Active Accu Check [Blood Glucose Check, Bedside] [RC] TIDMEALS Care 07/29/18 20:26 Active Telemetry Monitoring [Cardiac Monitoring] [RC] . Care 07/29/18 20:25 Active DIRECTED ADA Diabetic [[place] [employer] Diet] [DIET Diet 07/30/18 Breakfast Active ] TROPONIN I [CHEM] Q6H Lab 07/29/18 23:47 Ordered TROPONIN I [CHEM] Q6H Lab 07/30/18 05:47 Ordered Aspirin [Halfprin] Med 07/30/18 09:00 Active 81 mg PO DAILY Insulin Aspart [NovoLOG] Med 07/29/18 21:00 Active See Protocol SUBCUT TIDAC Sodium Chloride 0.9% [Normal Saline] 1,000 ml Med 07/29/18 20:30 Active IV ASDIRECTED metFORMIN [Glucophage XR] Med 07/29/18 21:00 Active 500 mg PO BIDMEALS Medication Orders Aspirin (Halfprin) 81 mg PO DAILY [facility] Sodium Chloride (Normal Saline) 1,000 mls @ 125 mls/hr IV ASDIRECTED [facility] Last Admin: 07/29/18 20:54 Dose: 125 mls/hr Insulin Aspart (Novolog) 0 unit SUBCUT TIDAC [facility]; Protocol Last Admin: 07/29/18 20:48 Dose: Metformin HCl (Glucophage Xr) 500 mg PO BIDMEALS [facility] Last Admin: 07/29/18 20:53 Dose: 500 mg Assessment/Plan Comment:: 57 yo male admitted for generalized weakness. I suspect fatigue from exercise and dehydration from work. Patient is feeling better and requesting discharge. He does have follow up with Dr. Mckeon.
[2018-07-30] MEDS: Sodium Chloride 0.9% 1,000 ML IV SCH (06:35)
[2018-07-30] MEDS ORDERED: Metoprolol Succinate 100 MG Tab.ER PO SCH (09:00)
[2018-07-30] MEDS ORDERED: Hydrochlorothiazide 12.5 MG Cap PO SCH (09:00)
[2018-07-30] MEDS ORDERED: Aspirin 81 MG Tab.EC PO SCH (09:00)
[2018-07-30] MEDS: Insulin Aspart 100 Units/ML 3 ML Pen SUBCUT SCH ×2 (09:05→13:45)
[2018-07-30] MEDS: metFORMIN 500 MG Tab.ER PO SCH (09:26)
[2018-07-30 14:29] VITALS: BP 101/58
== END 2018-07-30 15:00 | disposition home or self-care (01) ==
LOC: MW.ED 16:28 → MW.MS 18:31
PROVIDERS: ADMIT Internal Medicine; ATTEND Internal Medicine
DX: R53.1 Weakness (principal); I25.10 Atherosclerotic heart disease of native coronary artery without angina pectoris; I25.2 Old myocardial infarction; I11.9 Hypertensive heart disease without heart failure; E66.9 Obesity, unspecified; Z68.32 Body mass index [BMI] 32.0-32.9, adult; Z86.73 Personal history of transient ischemic attack (TIA), and cerebral infarction without residual deficits; Z87.19 Personal history of other diseases of the digestive system; Z86.39 Personal history of other endocrine, nutritional and metabolic disease; Z79.82 Long term (current) use of aspirin; Z79.84 Long term (current) use of oral hypoglycemic drugs; Z79.899 Other long term (current) drug therapy; Z95.5 Presence of coronary angioplasty implant and graft
CPT/HCPCS: 36415; 70450; 71045; 80053; 81003; 82962; 84484; 85025; 85610; 93005; 96360; 96361; 99285; A9270; J7040; G0378

== ENCOUNTER 2018-08-18 11:53 | Observation (INO) | payer OTHER ==
[2018-08-18] MEDS ORDERED: Sodium Chloride 0.9% 2.5 ML Syringe FLUSH PRN (11:59)
[2018-08-18] MEDS ORDERED: Ondansetron 4 MG/2 ML SDV IVPUSH PRN (11:59)
[2018-08-18] MEDS ORDERED: Sodium Chloride 0.9% 10 ML Syringe FLUSH PRN (11:59)
[2018-08-18] MEDS ORDERED: Acetaminophen 325 MG Tab PO PRN (11:59)
--- NOTE | 2018-08-18 12:47 | PCM.HP ---
<Guadalupe Riggs M - Last Filed: 08/18/18 12:56> H&P History of Present Illness - General Date of Service: 08/18/18 Admit Problem/Dx: Admission Diagnosis/Problem Admission Diagnosis/Problem Dehydration Source of Information: Patient, Old Records History Limitations: Reports: No Limitations - History of Present Illness Initial Comments - Free Text/Narative: This 57 year old male with pmh of CAD, recent CVA, and HTN presented to the clinic with concerns of diarrhea and overall not feeling well. He reports Wednesday evening the loose stools started, mild incontinence noted with loose watery stools. He denies abdominal pain, just a lot of gurgling and movement prior to loose stools. He reports hot flashes and chills at home. No chest pain or SOB. Some body aches that started after the stools. He reports he ate some hamburger that was frozen and cooked and he also ate a couple [employer] burritos that were frozen and recooked as well. He did take 3 doses of pepto bismal for diarrhea which improved the diarrhea some what, then this morning the diarrhea was worse again. He feels weak and balance is off more than normal. He reports BS are stable, not eating much, just small amounts of bland food. No nausea or vomiting. No recent antibiotic use, no recent travel and no one else around him has been sick. he reports a history of C diff in the past. After CVA in June, he was known to have balance issues in which he worked with PT for and has since been discharged from their services. He has been following with Dr Mckeon for further embolic workup with Zio patch. Labwork pending from clinic. - Related Data Allergies/Adverse Reactions: Allergies Allergy/AdvReac Type Severity Reaction Status Date / Time No Known Allergies Allergy Verified 08/18/18 12:24 Home Medications: Home Meds Aspirin [Ecotrin EC] 81 mg PO DAILY 04/29/15 [History] Citalopram Hydrobromide [Celexa] 20 mg PO DAILY 08/18/18 [History] Omeprazole 20 mg PO ACBREAKFAST 08/18/18 [History] Rosuvastatin Calcium 40 mg PO BEDTIME 08/18/18 [History] Tamsulosin HCl 0.4 mg PO BEDTIME 08/18/18 [History] metFORMIN HCl [Metformin HCl] 500 mg PO BIDMEALS 08/18/18 [History] Past Medical History HEENT History: Reports: Impaired Vision Other HEENT History: Left eye was affected when he had a stroke. Peripheral vision was affected Cardiovascular History: Reports: CAD, High Cholesterol, Hypertension, [place], Stents Respiratory History: Reports: None. Denies: COPD Gastrointestinal History: Reports: Diverticulosis, GERD, Other (See Below) Other Gastrointestinal History: hx c-diff x3 Genitourinary History: Reports: BPH Musculoskeletal History: Reports: Fracture, Gout Neurological History: Reports: CVA Other Neuro History: Last CVA was on June 30, 2018. Psychiatric History: Reports: Anxiety, Depression Endocrine/Metabolic History: Reports: Obesity/BMI 30+ Hematologic History: Reports: None Immunologic History: Reports: None Oncologic (Cancer) History: Reports: Lymphoma Dermatologic History: Reports: None - Infectious Disease History Infectious Disease History: Reports: Chicken Pox, Measles - Past Surgical History Head Surgeries/Procedures: Reports: None Cardiovascular Surgical History: Reports: Coronary Artery Stent GI Surgical History: Reports: Appendectomy, Hernia, Inguinal Musculoskeletal Surgical History: Reports: Other (See Below) Social & Family History - Family History Family Medical History: Noncontributory - Caffeine Use Caffeine Use: Reports: Coffee - Living Situation & Occupation Living situation: Reports: Single Occupation: Employed H&P Review of Systems - Review of Systems: Review Of Systems: See Below General: Reports: Chills, Malaise, Weakness, Fatigue, Other (overall body aches) HEENT: Reports: No Symptoms. Denies: Headaches, Sinus Congestion, Sore Throat Pulmonary: Reports: No Symptoms. Denies: Shortness of Breath, Wheezing, Cough, Sputum Cardiovascular: Reports: No Symptoms. Denies: Chest Pain, Palpitations, Edema Gastrointestinal: Reports: Diarrhea, Decreased Appetite, Distension. Denies: Abdominal Pain, Black Stool, Bloody Stool, Nausea, Vomiting Genitourinary: Reports: No Symptoms. Denies: Dysuria, Frequency, Burning Musculoskeletal: Reports: No Symptoms Skin: Reports: No Symptoms Psychiatric: Reports: No Symptoms Neurological: Reports: No Symptoms Hematologic/Lymphatic: Reports: No Symptoms Immunologic: Reports: No Symptoms Exam - Exam Exam: See Below - Exam General: Alert, Oriented, Cooperative HEENT: Conjunctiva Clear, Mucosa Moist & [place], Posterior Pharynx Clear, Pupils Reactive Lungs: Clear to Auscultation, Normal Respiratory Effort Cardiovascular: Regular Rate, Regular Rhythm, Normal S1, Normal S2 GI/Abdominal Exam: Normal Bowel Sounds, Soft, Non-Tender, No Distention, No Mass Back Exam: Normal Inspection, Full Range of Motion Extremities: Normal Inspection, Normal Range of Motion, Non-Tender, No Pedal Edema, Normal Capillary Refill Neuro Extensive - Mental Status: Alert, Oriented x3, Normal Mood/Affect Neuro Extensive - Motor, Sensory, Reflexes: CN II-XII Intact Psychiatric: Alert, Normal Affect, Anxious (regarding admission, but settling in.) *Q Meaningful Use (ADM) - VTE Risk Assess *Q Each Risk Factor Represents 1 Point: Age 41 - 59 years, Obesity ( BMI > 25 kg/m2 ) Total Score 1 Point Risk Factors: 2 Each Risk Factor Represents 2 Points: None Total Score 2 Point Risk Factors: 0 Each Risk Factor Represents 3 Points: None Total Score 3 Point Risk Factors: 0 Each Risk Factor Represents 5 Points: None Total Score 5 Point Risk Factors: 0 Venous Thromboembolism Risk Factor Score *Q: 2 - Problem List (1) Diarrhea SNOMED Code(s): 83806072 ICD Code: R19.7 - DIARRHEA, UNSPECIFIED Status: Acute Current Visit: Yes (2) Dehydration SNOMED Code(s): 58970566 ICD Code: E86.0 - DEHYDRATION Status: Acute Current Visit: Yes (3) Generalized weakness SNOMED Code(s): 61811408 ICD Code: R53.1 - WEAKNESS Status: Acute Current Visit: No (4) DM type 2 (diabetes mellitus, type 2) SNOMED Code(s): 08730098 ICD Code: E11.9 - TYPE 2 DIABETES MELLITUS WITHOUT COMPLICATIONS Status: Chronic Current Visit: Yes Qualifiers: Diabetes mellitus [employer] insulin use: without [employer] use Diabetes mellitus complication status: without complication Qualified Code(s): E11.9 - Type 2 diabetes mellitus without complications (5) Umbilical hernia SNOMED Code(s): 665294584 ICD Code: K42.9 - UMBILICAL HERNIA WITHOUT OBSTRUCTION OR GANGRENE Status: Chronic Current Visit: No Qualifiers: Obstruction and gangrene presence: without obstruction or gangrene Qualified Code(s): K42.9 - Umbilical hernia without obstruction or gangrene (6) Anxiety and depression SNOMED Code(s): 413265618 ICD Code: F41.9 - ANXIETY DISORDER, UNSPECIFIED; F32.9 - MAJOR DEPRESSIVE DISORDER, SINGLE EPISODE, UNSPECIFIED Status: Chronic Current Visit: No (7) CAD (coronary artery disease) SNOMED Code(s): 83622885 ICD Code: I25.10 - ATHSCL HEART DISEASE OF [place] CORONARY ARTERY W/O ANG PCTRS Status: Chronic Current Visit: No (8) HTN (hypertension) SNOMED Code(s): 74098594 ICD Code: I10 - ESSENTIAL (PRIMARY) HYPERTENSION Status: Chronic Current Visit: No Qualifiers: Hypertension type: essential hypertension Qualified Code(s): I10 - Essential (primary) hypertension (9) History of CVA (cerebrovascular accident) SNOMED Code(s): 775742658 ICD Code: Z86.73 - PRSNL HX OF TIA (TIA), AND CEREB INFRC W/O RESID DEFICITS Status: Chronic Current Visit: No (10) Hx of myocardial infarction SNOMED Code(s): 687304934 ICD Code: I25.2 - OLD MYOCARDIAL INFARCTION Status: Chronic Current Visit : No Problem List Initiated/Reviewed/Updated: Yes Orders Last 24hrs: Active Orders 24 hr Category Date Time Status Patient Status [ADT] Routine ADT 08/18/18 11:59 Active Blood Glucose Check, Bedside [RC] TIDAC Care 08/18/18 12:08 Active Height and Weight [RC] DAILY Care 08/18/18 11:59 Active Intake and Output [RC] Q12H Care 08/18/18 11:59 Active Oxygen Therapy [RC] PRN Care 08/18/18 11:59 Active Up ad Mitzi [RC] ASDIRECTED Care 08/18/18 11:59 Active VTE/DVT Education [RC] PER UNIT ROUTINE Care 08/18/18 11:59 Active Vital Signs [RC] Q4H Care 08/18/18 11:59 Active Clear Liquid Diet [DIET] Diet 08/18/18 Lunch Active CDIFF TOX A+B [OP] Routine Lab 08/18/18 12:03 Ordered CULTURE STOOL + CAMPY+SHIGATOX [RM] Routine Lab 08/18/18 12:03 Ordered Acetaminophen [Tylenol] Med 08/18/18 11:59 Active 650 mg PO Q4H PRN Insulin Aspart [NovoLOG] Med 08/18/18 17:00 Active See Protocol SUBCUT TIDAC Ondansetron [Zofran] Med 08/18/18 11:59 Active 4 mg IVPUSH Q4H PRN Sodium Chloride 0.9% [Saline Flush] Med 08/18/18 11:59 Active 10 ml FLUSH ASDIRECTED PRN Sodium Chloride 0.9% [Saline Flush] Med 08/18/18 11:59 Active 2.5 ml FLUSH ASDIRECTED PRN Isolation [COMM] Stat Oth 08/18/18 12:04 Ordered Saline Lock Insert [OM.PC] Routine Oth 08/18/18 11:59 Ordered Resuscitation Status Routine Resus Stat 08/18/18 11:59 Ordered Medication Orders Acetaminophen (Tylenol) 650 mg PO Q4H PRN PRN Reason: Pain (mild 1-3) Insulin Aspart (Novolog) 0 unit SUBCUT TIDAC [facility]; Protocol Ondansetron HCl (Zofran) 4 mg IVPUSH Q4H PRN PRN Reason: Nausea Sodium Chloride (Saline Flush) 10 ml FLUSH ASDIRECTED PRN PRN Reason: Keep Vein Open Sodium Chloride (Saline Flush) 2.5 ml FLUSH ASDIRECTED PRN PRN Reason: Keep Vein Open Assessment/Plan Comment:: This 57 year old male admitted with dehydration, diarrhea, and generalized weakness. 1. Diarrhea: unsure of how many episodes he has had, but "a lot". Will obtain stool studies, has history of Cdiff x 3. No abdominal pain. CL for now. 2. Dehydration: No JOSEPH noted. Potassium 4.3. Will start IVFs gently overnight and monitor. 3. Generalized weakness: Likely secondary to acute illness. Monitor 4. DM Type 2: Stable, Hold Metformin. Will order SSI Novolog. 5. CAD/recent CVA: Continue ASA and statin. Otherwise stable currently. VTE prophylaxis: Lovenox. Dispo: 1-2 days pending improvement. <Janes Nichols M - Last Filed: 08/18/18 13:20> H&P History of Present Illness - General Admit Problem/Dx: Admission Diagnosis/Problem Admission Diagnosis/Problem Dehydration I have seen and examined to patient independently of Guadalupe Riggs CNP. I have discussed the case for care of this patient with her. I have reviewed and approve of the plan of care as outlined by ORDER ANALYST. Please see orders. Orders Last 24hrs: Active Orders 24 hr Category Date Time Status Patient Status [ADT] Routine ADT 08/18/18 11:59 Active Blood Glucose Check, Bedside [RC] TIDAC Care 08/18/18 12:08 Active Height and Weight [RC] DAILY Care 08/18/18 11:59 Active Intake and Output [RC] Q12H Care 08/18/18 11:59 Active Orthostatic Vital Signs [RC] Q24H Care 08/18/18 13:03 Active Oxygen Therapy [RC] PRN Care 08/18/18 11:59 Active Up ad Mitzi [RC] ASDIRECTED Care 08/18/18 11:59 Active VTE/DVT Education [RC] PER UNIT ROUTINE Care 08/18/18 11:59 Active Vital Signs [RC] Q4H Care 08/18/18 11:59 Active Clear Liquid Diet [DIET] Diet 08/18/18 Lunch Active BASIC METABOLIC PANEL,BMP [CHEM] AM Lab 08/19/18 05:11 Ordered BASIC METABOLIC PANEL,BMP [CHEM] AM Lab 08/20/18 05:11 Ordered CBC WITH AUTO DIFF [HEME] AM Lab 08/19/18 05:11 Ordered CBC WITH AUTO DIFF [HEME] AM Lab 08/20/18 05:11 Ordered CDIFF TOX A+B [OP] Routine Lab 08/18/18 13:00 Received CULTURE STOOL + CAMPY+SHIGATOX [RM] Routine Lab 08/18/18 13:00 Received MAGNESIUM [CHEM] AM Lab 08/19/18 05:11 Ordered UA RFX GABRIEL AND CULT IF INDIC [URIN] Urgent Lab 08/18/18 13:00 Received Acetaminophen [Tylenol] Med 08/18/18 11:59 Active 650 mg PO Q4H PRN Aspirin [Halfprin] Med 08/19/18 09:00 Active 81 mg PO DAILY Citalopram [Celexa] Med 08/19/18 09:00 Active 20 mg PO DAILY Enoxaparin [Lovenox] Med 08/18/18 13:00 Active 40 mg SUBCUT Q24H Insulin Aspart [NovoLOG] Med 08/18/18 17:00 Active See Protocol SUBCUT TIDAC Omeprazole Med 08/19/18 07:30 Active 20 mg PO ACBREAKFAST Ondansetron [Zofran] Med 08/18/18 11:59 Active 4 mg IVPUSH Q4H PRN Rosuvastatin [Crestor] Med 08/18/18 21:00 Active 40 mg PO BEDTIME Sodium Chloride 0.9% [Normal Saline] 1,000 ml Med 08/18/18 13:00 Active IV ASDIRECTED Sodium Chloride 0.9% [Saline Flush] Med 08/18/18 11:59 Active 10 ml FLUSH ASDIRECTED PRN Sodium Chloride 0.9% [Saline Flush] Med 08/18/18 11:59 Active 2.5 ml FLUSH ASDIRECTED PRN Tamsulosin [Flomax] Med 08/18/18 21:00 Active 0.4 mg PO BEDTIME Isolation [COMM] Stat Ot 08/18/18 12:04 Ordered Saline Lock Insert [OM.PC] Routine Ot 08/18/18 11:59 Ordered Resuscitation Status Routine Resus Stat 08/18/18 11:59 Ordered Medication Orders Acetaminophen (Tylenol) 650 mg PO Q4H PRN PRN Reason: Pain (mild 1-3) Aspirin (Halfprin) 81 mg PO DAILY [facility] Citalopram Hydrobromide (Celexa) 20 mg PO DAILY [facility] Enoxaparin Sodium (Lovenox) 40 mg SUBCUT Q24H [facility] Sodium Chloride (Normal Saline) 1,000 mls @ 100 mls/hr IV ASDIRECTED [facility] Insulin Aspart (Novolog) 0 unit SUBCUT TIDAC [facility]; Protocol Omeprazole (Omeprazole) 20 mg PO ACBREAKFAST [facility] Ondansetron HCl (Zofran) 4 mg IVPUSH Q4H PRN PRN Reason: Nausea Rosuvastatin Calcium (Crestor) 40 mg PO BEDTIME [facility] Sodium Chloride (Saline Flush) 10 ml FLUSH ASDIRECTED PRN PRN Reason: Keep Vein Open Sodium Chloride (Saline Flush) 2.5 ml FLUSH ASDIRECTED PRN PRN Reason: Keep Vein Open Tamsulosin HCl (Flomax) 0.4 mg PO BEDTIME [facility]
[2018-08-18] MEDS ORDERED: Enoxaparin 40 MG/0.4 ML Syringe SUBCUT SCH (13:00)
[2018-08-18] MEDS: Sodium Chloride 0.9% 1,000 ML IV SCH (15:28)
[2018-08-18] MEDS: Insulin Aspart 100 Units/ML 3 ML Pen SUBCUT SCH (19:00)
[2018-08-18] MEDS ORDERED: Tamsulosin 0.4 MG Cap.ER PO SCH (21:00)
[2018-08-18] MEDS ORDERED: Rosuvastatin 10 MG Tab PO SCH (21:00)
[2018-08-19] MEDS: Sodium Chloride 0.9% 1,000 ML IV SCH (01:38)
[2018-08-19 05:24] LABS: CHLORIDE,CL 105 mmol/L (98-107); SODIUM,NA 140 mmol/L (136-148)
[2018-08-19] MEDS ORDERED: Omeprazole 20 MG Cap.CR PO SCH (07:30)
[2018-08-19] MEDS: Insulin Aspart 100 Units/ML 3 ML Pen SUBCUT SCH (07:38)
[2018-08-19 08:14] VITALS: BP 122/72
--- NOTE | 2018-08-19 08:42 | PCM.DCSUM1 ---
<Guadalupe Riggs - Last Filed: 08/19/18 10:14> Discharge Summary - Hospital Course Brief History: This 57 year old male with pmh of CAD, recent CVA, and HTN presented to the clinic with concerns of diarrhea and overall not feeling well. He reports Wednesday evening the loose stools started, mild incontinence noted with loose watery stools. He denies abdominal pain, just a lot of gurgling and movement prior to loose stools. He reports hot flashes and chills at home. No chest pain or SOB. Some body aches that started after the stools. He reports he ate some hamburger that was frozen and cooked and he also ate a couple t[employer] burritos that were frozen and recooked as well. He did take 3 doses of pepto bismal for diarrhea which improved the diarrhea some what, then this morning the diarrhea was worse again. He feels weak and balance is off more than normal. He reports BS are stable, not eating much, just small amounts of bland food. No nausea or vomiting. No recent antibiotic use, no recent travel and no one else around him has been sick. he reports a history of C diff in the past. After CVA in June, he was known to have balance issues in which he worked with PT for and has since been discharged from their services. He has been following with Dr Mckeon for further embolic workup with Zio patch. Diagnosis: Stroke: No - Discharge Data Discharge Date: 08/19/18 Discharge Disposition: Home, Self-Care 01 Condition: Good - Discharge Diagnosis/Problem(s) (1) Diarrhea SNOMED Code(s): 24398301 ICD Code: R19.7 - DIARRHEA, UNSPECIFIED Status: Acute (2) Dehydration SNOMED Code(s): 72483788 ICD Code: E86.0 - DEHYDRATION Status: Acute (3) Generalized weakness SNOMED Code(s): 42572506 ICD Code: R53.1 - WEAKNESS Status: Acute (4) DM type 2 (diabetes mellitus, type 2) SNOMED Code(s): 98415621 ICD Code: E11.9 - TYPE 2 DIABETES MELLITUS WITHOUT COMPLICATIONS Status: Chronic Qualifiers: Diabetes mellitus prison insulin use: without prison use Diabetes mellitus complication status: without complication Qualified Code(s): E11.9 - Type 2 diabetes mellitus without complications (5) Umbilical hernia SNOMED Code(s): 150487595 ICD Code: K42.9 - UMBILICAL HERNIA WITHOUT OBSTRUCTION OR GANGRENE Status: Chronic Qualifiers: Obstruction and gangrene presence: without obstruction or gangrene Qualified Code(s): K42.9 - Umbilical hernia without obstruction or gangrene (6) Anxiety and depression SNOMED Code(s): 674578036 ICD Code: F41.9 - ANXIETY DISORDER, UNSPECIFIED; F32.9 - MAJOR DEPRESSIVE DISORDER, SINGLE EPISODE, UNSPECIFIED Status: Chronic (7) CAD (coronary artery disease) SNOMED Code(s): 11468023 ICD Code: I25.10 - ATHSCL HEART DISEASE OF [place] CORONARY ARTERY W/O ANG PCTRS Status: Chronic (8) HTN (hypertension) SNOMED Code(s): 07040641 ICD Code: I10 - ESSENTIAL (PRIMARY) HYPERTENSION Status: Chronic Qualifiers: Hypertension type: essential hypertension Qualified Code(s): I10 - Essential (primary) hypertension (9) History of CVA (cerebrovascular accident) SNOMED Code(s): 552180977 ICD Code: Z86.73 - PRSNL HX OF TIA (TIA), AND CEREB INFRC W/O RESID DEFICITS Status: Chronic (10) Hx of myocardial infarction SNOMED Code(s): 543091741 ICD Code: I25.2 - OLD MYOCARDIAL INFARCTION Status: Chronic - Patient Instructions Diet: Heart Healthy Diet, Diabetic Diet Activity: As Tolerated Showering/Bathing: May Shower Notify Provider of: Fever, Increased Pain, Swelling and Redness, Drainage, Nausea and/or Vomiting - Discharge Plan *PRESCRIPTION DRUG MONITORING PROGRAM REVIEWED*: Not Applicable *COPY OF PRESCRIPTION DRUG MONITORING REPORT IN PATIENT OMAYRA: Not Applicable Home Medications: Home Meds Aspirin [Ecotrin EC] 81 mg PO DAILY 04/29/15 [History] Citalopram Hydrobromide [Celexa] 20 mg PO DAILY 08/18/18 [History] Metoprolol Succinate 12.5 mg PO DAILY 08/18/18 [History] Omeprazole 20 mg PO ACBREAKFAST 08/18/18 [History] Rosuvastatin Calcium 40 mg PO BEDTIME 08/18/18 [History] Tamsulosin HCl 0.4 mg PO BEDTIME 08/18/18 [History] metFORMIN HCl [Metformin HCl] 500 mg PO BIDMEALS 08/18/18 [History] Oxygen Therapy Mode: Room Air Patient Handouts: Dehydration, Adult, [id number]-Glpa, Diarrhea, Adult, Easy-to- Read Referrals: [facility] [Outside] Ana Santiago DO [Resident] - 08/30/18 2:30 pm (please arrange follow up for 1-[address] Santiago or Norma Fenton) - Discharge Summary/Plan Comment DC Time >30 min.: No Discharge Summary/Plan Comment: Admitting Diagnoses: Gastroenteritis Diarrhea Dehydration Discharge Diagnoses: Gastroenteritis Dehydration Other PMH: DM type 2 Anxiety and depression CAD Hx CVA HX WI HTN Venu was admitted directly from clinic secondary to concerns regarding dehydration and diarrhea. No further diarrhea noted. Stool sent for studies was formed. All stool studies returned negative. He was treated with IVFs overnight and he reports he is feeling better this morning. We did discuss side effects of Metformin and diarrhea or it may have been related to what he ate. But no signs of bacterial diarrhea. He will be discharged home continue ADA diet. He is to follow up with PCP in 1 week. Return to ED or clinic if concerns arise. - General Info Date of Service: 08/19/18 Admission Dx/Problem (Free Text: Admission Diagnosis/Problem Admission Diagnosis/Problem Dehydration Subjective Update: Doing well this morning, No further diarrhea. No nausea. Eating well. No other concerns Functional Status: Reports: Pain Controlled, Tolerating Diet, Ambulating, Urinating - Review of Systems General: Reports: No Symptoms. Denies: Weakness, Fatigue HEENT: Reports: No Symptoms. Denies: Headaches, Sore Throat Pulmonary: Reports: No Symptoms. Denies: Shortness of Breath Cardiovascular: Reports: No Symptoms. Denies: Chest Pain Gastrointestinal: Reports: No Symptoms. Denies: Abdominal Pain, Nausea, Vomiting Genitourinary: Reports: No Symptoms Musculoskeletal: Reports: No Symptoms Skin: Reports: No Symptoms Neurological: Reports: No Symptoms Psychiatric: Reports: No Symptoms - Patient Data Vitals - Most Recent: Last Vital Signs Temp 96.8 F 08/19/18 08:00 Pulse 59 L 08/19/18 08:00 Resp 18 08/19/18 08:00 BP 122/72 08/19/18 08:00 Pulse Ox 93 L 08/19/18 08:00 Orthostatic Blood Pressure [ 119/83 Standing] Orthostatic Blood Pressure [ 123/76 Sitting] Orthostatic Blood Pressure [ 123/78 Supine] Weight - Most Recent: 86.001 kg I&O - Last 24 hours: Intake & Output 08/18/18 08/19/18 08/19/18 22:59 06:59 14:59 Intake Total 399 1840 Output Total 0 1850 Balance 399 -10 Lab Results - Last 24 hrs: Laboratory Results - last 24 hr 08/18/18 08/18/18 08/19/18 Range/Units 13:00 17:37 05:00 WBC 4.84 (4.0-11.0) K/uL RBC 4.48 L (4.50-5.90) M/uL Hgb 13.8 (13.0-17.0) g/dL Hct 43.0 (38.0-50.0) % MCV 96.0 (80.0-98.0) fL MCH 30.8 (27.0-32.0) pg MCHC 32.1 (31.0-37.0) g/dL RDW Std Deviation 48.0 (28.0-62.0) fl RDW Coeff of Janet 14 (11.0-15.0) % Plt Count 156 (150-400) K/uL MPV 11.10 (7.40-12.00) fL Neut % (Auto) 53.7 (48.0-80.0) % Lymph % (Auto) 29.8 (16.0-40.0) % Wright % (Auto) 12.8 (0.0-15.0) % Eos % (Auto) 3.3 (0.0-7.0) % Baso % (Auto) 0.4 (0.0-1.5) % Neut # (Auto) 2.6 (1.4-5.7) K/uL Lymph # (Auto) 1.4 (0.6-2.4) K/uL Wright # (Auto) 0.6 (0.0-0.8) K/uL Eos # (Auto) 0.2 (0.0-0.7) K/uL Baso # (Auto) 0.0 (0.0-0.1) K/uL Nucleated RBC % 0.0 /100WBC Nucleated RBCs # 0 K/uL Sodium (136-148) mmol/L Potassium (3.5-5.1) mmol/L Chloride (98-107) mmol/L Carbon Dioxide (21.0-32.0) mmol/L BUN (7.0-18.0) mg/dL Creatinine (0.8-1.3) mg/dL Est Cr Clr Drug Dosing mL/min Estimated GFR (MDRD) ml/min Glucose (74-106) mg/dL POC Glucose 124 H (60-110) mg/dL Calcium (8.5-10.1) mg/dL Magnesium (1.8-2.4) mg/dL Urine Color YELLOW Urine Appearance CLEAR Urine pH 6.0 (5.0-8.0) Ur Specific [place] >= 1.030 (1.001-1.035) Urine Protein NEGATIVE (NEGATIVE) mg/dL Urine Glucose (UA) NEGATIVE (NEGATIVE) mg/dL Urine Ketones NEGATIVE (NEGATIVE) mg/dL Urine Occult Blood MODERATE H (NEGATIVE) Urine Nitrite NEGATIVE (NEGATIVE) Urine Bilirubin NEGATIVE (NEGATIVE) Urine Urobilinogen 0.2 (<2.0) EU/dL Ur Leukocyte Esterase NEGATIVE (NEGATIVE) Urine RBC 10-12 (0-2/HPF) Urine WBC 1-2 (0-5/HPF) Ur Epithelial Cells RARE (NONE-FEW) Urine Bacteria RARE (NEGATIVE) Urine Mucus MODERATE (NONE-MOD) 08/19/18 08/19/18 Range/Units 05:00 06:27 WBC (4.0-11.0) K/uL RBC (4.50-5.90) M/uL Hgb (13.0-17.0) g/dL Hct (38.0-50.0) % MCV (80.0-98.0) fL MCH (27.0-32.0) pg MCHC (31.0-37.0) g/dL RDW Std Deviation (28.0-62.0) fl RDW Coeff of Janet (11.0-15.0) % Plt Count (150-400) K/uL MPV (7.40-12.00) fL Neut % (Auto) (48.0-80.0) % Lymph % (Auto) (16.0-40.0) % Wright % (Auto) (0.0-15.0) % Eos % (Auto) (0.0-7.0) % Baso % (Auto) (0.0-1.5) % Neut # (Auto) (1.4-5.7) K/uL Lymph # (Auto) (0.6-2.4) K/uL Wright # (Auto) (0.0-0.8) K/uL Eos # (Auto) (0.0-0.7) K/uL Baso # (Auto) (0.0-0.1) K/uL Nucleated RBC % /100WBC Nucleated RBCs # K/uL Sodium 140 (136-148) mmol/L Potassium 4.8 (3.5-5.1) mmol/L Chloride 105 (98-107) mmol/L Carbon Dioxide 28.9 (21.0-32.0) mmol/L BUN 12 (7.0-18.0) mg/dL Creatinine 0.9 (0.8-1.3) mg/dL Est Cr Clr Drug Dosing 86.56 mL/min Estimated GFR (MDRD) > 60.0 ml/min Glucose 110 H (74-106) mg/dL POC Glucose 117 H (60-110) mg/dL Calcium 9.8 (8.5-10.1) mg/dL Magnesium 2.1 (1.8-2.4) mg/dL Urine Color Urine Appearance Urine pH (5.0-8.0) Ur Specific [place] (1.001-1.035) Urine Protein (NEGATIVE) mg/dL Urine Glucose (UA) (NEGATIVE) mg/dL Urine Ketones (NEGATIVE) mg/dL Urine Occult Blood (NEGATIVE) Urine Nitrite (NEGATIVE) Urine Bilirubin (NEGATIVE) Urine Urobilinogen (<2.0) EU/dL Ur Leukocyte Esterase (NEGATIVE) Urine RBC (0-2/HPF) Urine WBC (0-5/HPF) Ur Epithelial Cells (NONE-FEW) Urine Bacteria (NEGATIVE) Urine Mucus (NONE-MOD) GABRIEL Results - Last 24 hrs: Microbiology 08/18/18 13:00 Clostridium difficile Toxin A & B - Final Stool / Feces Negative for C.Diff Toxin/AG REFERENCE RANGE: NEGATIVE 08/18/18 13:00 Campylobacter Antigen Assay - Final Stool / Feces NEGATIVE CAMPYLOBACTER AG REFERENCE RANGE: NEGATIVE Med Orders - Current: Current Medications Acetaminophen (Tylenol) 650 mg PO Q4H PRN PRN Reason: Pain (mild 1-3) Aspirin (Halfprin) 81 mg PO DAILY [facility] Citalopram Hydrobromide (Celexa) 20 mg PO DAILY [facility] Enoxaparin Sodium (Lovenox) 40 mg SUBCUT Q24H [facility] Last Admin: 08/18/18 13:49 Dose: 40 mg Sodium Chloride (Normal Saline) 1,000 mls @ 100 mls/hr IV ASDIRECTED [facility] Last Admin: 08/19/18 01:38 Dose: 100 mls/hr Insulin Aspart (Novolog) 0 unit SUBCUT TIDAC [facility]; Protocol Last Admin: 08/19/18 07:38 Dose: Not Given Omeprazole (Omeprazole) 20 mg PO ACBREAKFAST [facility] Last Admin: 08/19/18 06:36 Dose: 20 mg Ondansetron HCl (Zofran) 4 mg IVPUSH Q4H PRN PRN Reason: Nausea Rosuvastatin Calcium (Crestor) 40 mg PO BEDTIME [facility] Last Admin: 08/18/18 20:51 Dose: 40 mg Sodium Chloride (Saline Flush) 10 ml FLUSH ASDIRECTED PRN PRN Reason: Keep Vein Open Sodium Chloride (Saline Flush) 2.5 ml FLUSH ASDIRECTED PRN PRN Reason: Keep Vein Open Tamsulosin HCl (Flomax) 0.4 mg PO BEDTIME [facility] Last Admin: 08/18/18 20:53 Dose: 0.4 mg - Exam General: Reports: Alert, Oriented, Cooperative, No Acute Distress Lungs: Reports: Clear to Auscultation, Normal Respiratory Effort Cardiovascular: Reports: Regular Rate, Regular Rhythm GI/Abdominal Exam: Normal Bowel Sounds, Soft, Non-Tender, No Organomegaly, No Distention Wound/Incisions: Reports: Healing Well Neurological: Reports: No New Focal Deficit Psy/Mental Status: Reports: Alert, Normal Affect, Normal Mood <Janes Nichols - Last Filed: 08/19/18 14:03> Discharge Summary - Hospital Course HPI Initial Comments: I have seen and examined to patient independently of Guadalupe Riggs CNP. I have discussed the case for care of this patient with her. I have reviewed and approve of the plan of care as outlined by her. Please see orders. - Patient Data Vitals - Most Recent: Last Vital Signs Temp 36.0 C 08/19/18 08:00 Pulse 59 L 08/19/18 08:00 Resp 18 08/19/18 08:00 BP 122/72 08/19/18 08:00 Pulse Ox 93 L 08/19/18 08:00 Orthostatic Blood Pressure [ 119/83 Standing] Orthostatic Blood Pressure [ 123/76 Sitting] Orthostatic Blood Pressure [ 123/78 Supine] I&O - Last 24 hours: Intake & Output 08/18/18 08/19/18 08/19/18 22:59 06:59 14:59 Intake Total 399 1840 1399 Output Total 0 1850 600 Balance 399 -10 799 Lab Results - Last 24 hrs: Laboratory Results - last 24 hr 08/18/18 08/19/18 08/19/18 Range/Units 17:37 05:00 05:00 WBC 4.84 (4.0-11.0) K/uL RBC 4.48 L (4.50-5.90) M/uL Hgb 13.8 (13.0-17.0) g/dL Hct 43.0 (38.0-50.0) % MCV 96.0 (80.0-98.0) fL MCH 30.8 (27.0-32.0) pg MCHC 32.1 (31.0-37.0) g/dL RDW Std Deviation 48.0 (28.0-62.0) fl RDW Coeff of Janet 14 (11.0-15.0) % Plt Count 156 (150-400) K/uL MPV 11.10 (7.40-12.00) fL Neut % (Auto) 53.7 (48.0-80.0) % Lymph % (Auto) 29.8 (16.0-40.0) % Wright % (Auto) 12.8 (0.0-15.0) % Eos % (Auto) 3.3 (0.0-7.0) % Baso % (Auto) 0.4 (0.0-1.5) % Neut # (Auto) 2.6 (1.4-5.7) K/uL Lymph # (Auto) 1.4 (0.6-2.4) K/uL Wright # (Auto) 0.6 (0.0-0.8) K/uL Eos # (Auto) 0.2 (0.0-0.7) K/uL Baso # (Auto) 0.0 (0.0-0.1) K/uL Nucleated RBC % 0.0 /100WBC Nucleated RBCs # 0 K/uL Sodium 140 (136-148) mmol/L Potassium 4.8 (3.5-5.1) mmol/L Chloride 105 (98-107) mmol/L Carbon Dioxide 28.9 (21.0-32.0) mmol/L BUN 12 (7.0-18.0) mg/dL Creatinine 0.9 (0.8-1.3) mg/dL Est Cr Clr Drug Dosing 86.56 mL/min Estimated GFR (MDRD) > 60.0 ml/min Glucose 110 H (74-106) mg/dL POC Glucose 124 H (60-110) mg/dL Calcium 9.8 (8.5-10.1) mg/dL Magnesium 2.1 (1.8-2.4) mg/dL 08/19/18 Range/Units 06:27 WBC (4.0-11.0) K/uL RBC (4.50-5.90) M/uL Hgb (13.0-17.0) g/dL Hct (38.0-50.0) % MCV (80.0-98.0) fL MCH (27.0-32.0) pg MCHC (31.0-37.0) g/dL RDW Std Deviation (28.0-62.0) fl RDW Coeff of Janet (11.0-15.0) % Plt Count (150-400) K/uL MPV (7.40-12.00) fL Neut % (Auto) (48.0-80.0) % Lymph % (Auto) (16.0-40.0) % Wright % (Auto) (0.0-15.0) % Eos % (Auto) (0.0-7.0) % Baso % (Auto) (0.0-1.5) % Neut # (Auto) (1.4-5.7) K/uL Lymph # (Auto) (0.6-2.4) K/uL Wright # (Auto) (0.0-0.8) K/uL Eos # (Auto) (0.0-0.7) K/uL Baso # (Auto) (0.0-0.1) K/uL Nucleated RBC % /100WBC Nucleated RBCs # K/uL Sodium (136-148) mmol/L Potassium (3.5-5.1) mmol/L Chloride (98-107) mmol/L Carbon Dioxide (21.0-32.0) mmol/L BUN (7.0-18.0) mg/dL Creatinine (0.8-1.3) mg/dL Est Cr Clr Drug Dosing mL/min Estimated GFR (MDRD) ml/min Glucose (74-106) mg/dL POC Glucose 117 H (60-110) mg/dL Calcium (8.5-10.1) mg/dL Magnesium (1.8-2.4) mg/dL GABRIEL Results - Last 24 hrs: Microbiology 08/18/18 13:00 Campylobacter Antigen Assay - Final Stool / Feces NEGATIVE CAMPYLOBACTER AG REFERENCE RANGE: NEGATIVE Shiga Toxin I - Final NEGATIVE FOR SHIGA TOXIN 1 REFERENCE RANGE: NEGATIVE Shiga Toxin II - Final NEGATIVE FOR SHIGA TOXIN 2 REFERENCE RANGE: NEGATIVE 08/18/18 13:00 Clostridium difficile Toxin A & B - Final Stool / Feces Negative for C.Diff Toxin/AG REFERENCE RANGE: NEGATIVE Med Orders - Current: Current Medications Discontinued Medications Acetaminophen (Tylenol) 650 mg PO Q4H PRN PRN Reason: Pain (mild 1-3) Aspirin (Halfprin) 81 mg PO DAILY [facility] Last Admin: 08/19/18 09:07 Dose: 81 mg Citalopram Hydrobromide (Celexa) 20 mg PO DAILY [facility] Last Admin: 08/19/18 09:07 Dose: 20 mg Enoxaparin Sodium (Lovenox) 40 mg SUBCUT Q24H [facility] Last Admin: 08/18/18 13:49 Dose: 40 mg Sodium Chloride (Normal Saline) 1,000 mls @ 100 mls/hr IV ASDIRECTED [facility] Last Admin: 08/19/18 01:38 Dose: 100 mls/hr Insulin Aspart (Novolog) 0 unit SUBCUT TIDAC [facility]; Protocol Last Admin: 08/19/18 07:38 Dose: Not Given Omeprazole (Omeprazole) 20 mg PO ACBREAKFAST [facility] Last Admin: 08/19/18 06:36 Dose: 20 mg Ondansetron HCl (Zofran) 4 mg IVPUSH Q4H PRN PRN Reason: Nausea Rosuvastatin Calcium (Crestor) 40 mg PO BEDTIME [facility] Last Admin: 08/18/18 20:51 Dose: 40 mg Sodium Chloride (Saline Flush) 10 ml FLUSH ASDIRECTED PRN PRN Reason: Keep Vein Open Sodium Chloride (Saline Flush) 2.5 ml FLUSH ASDIRECTED PRN PRN Reason: Keep Vein Open Tamsulosin HCl (Flomax) 0.4 mg PO BEDTIME [facility] Last Admin: 08/18/18 20:53 Dose: 0.4 mg
[2018-08-19] MEDS ORDERED: Citalopram 20 MG Tab PO SCH (09:00)
[2018-08-19] MEDS ORDERED: Aspirin 81 MG Tab.EC PO SCH (09:00)
== END 2018-08-19 11:05 | disposition home or self-care (01) ==
LOC: MW.MS 11:53
PROVIDERS: ADMIT Internal Medicine; ATTEND Internal Medicine
DX: K52.9 Noninfective gastroenteritis and colitis, unspecified (principal); E86.0 Dehydration; R53.1 Weakness; I25.10 Atherosclerotic heart disease of native coronary artery without angina pectoris; I10 Essential (primary) hypertension; I25.2 Old myocardial infarction; E11.9 Type 2 diabetes mellitus without complications; K42.9 Umbilical hernia without obstruction or gangrene; F41.9 Anxiety disorder, unspecified; F32.9 Major depressive disorder, single episode, unspecified; Z86.73 Personal history of transient ischemic attack (TIA), and cerebral infarction without residual deficits; Z79.82 Long term (current) use of aspirin; Z79.84 Long term (current) use of oral hypoglycemic drugs; Z79.899 Other long term (current) drug therapy
CPT/HCPCS: 36415; 80048; 81001; 82962; 83735; 85025; 87046; 87324; 87899; A9270; J1650; J7040; 80053; 85652; 96360; 96361; 96372; G0378; G0379

== ENCOUNTER 2019-01-23 06:42 | Day surgery (SDC) | payer OTHER ==
[~2019-01-23 06:42] MED LIST: Lactated Ringers 1,000 ML IV SCH; ceFAZolin 2 GM in Premix Bag 1 BAG IV ONE
[2019-01-23] MEDS ORDERED: Midazolam 1 MG/ML 2 ML SDV ONE (07:04)
[2019-01-23] MEDS ORDERED: Propofol 200 MG/20 ML SDV ONE (07:04)
[2019-01-23] MEDS ORDERED: fentaNYL 250 MCG/5 ML SDV ONE (07:05)
[2019-01-23] MEDS ORDERED: Rocuronium 100 MG/10 ML Syringe ONE (07:06)
[2019-01-23] MEDS ORDERED: Neostigmine Methylsulfate 1 MG/ML 5 ML Syringe ONE (07:06)
[2019-01-23] MEDS ORDERED: Ketorolac 30 MG/ML SDV ONE (07:06)
[2019-01-23] MEDS ORDERED: Glycopyrrolate 0.2 MG/ML SDV ONE (07:06)
[2019-01-23] MEDS ORDERED: Dexamethasone 4 MG/ML 5 ML MDV ONE (07:06)
[2019-01-23] MEDS ORDERED: Lidocaine 2% 5 ML SDV ONE (07:06)
[2019-01-23] MEDS ORDERED: Ondansetron 4 MG/2 ML SDV ONE (07:06)
[2019-01-23] MEDS ORDERED: Sugammadex Sodium 200 MG/2 ML VIAL ONE (07:26)
--- NOTE | 2019-01-23 07:36 | PCM.PREANE ---
Preanesthetic Assessment - Anesthesia/Transfusion/Family Hx Anesthesia History: Prior Anesthesia Without Reaction Other Type of Anesthesia Reaction Comment: unsure of family hx, raised in foster home Family History of Anesthesia Reaction: No Transfusion History: No Prior Transfusion(s) Intubation History: Unknown - Review of Systems General: No Symptoms Pulmonary: No Symptoms Cardiovascular: No Symptoms Gastrointestinal: No Symptoms Neurological: No Symptoms Other: Reports: None - Physical Assessment Vital Signs: Last Vital Signs Temp 36.0 C 01/23/19 06:50 Pulse 60 01/23/19 06:50 Resp 20 01/23/19 06:50 BP 143/88 H 01/23/19 06:50 Pulse Ox 97 01/23/19 06:50 Height: 5 ft 8 in Weight: 86.636 kg ASA Class: 3 Mental Status: Alert & Oriented x3 Airway Class: Mallampati = 3 Dentition: Reports: Normal Dentition Thyro-Mental Finger Breadths: 2 Mouth Opening Finger Breadths: 2 ROM/Head Extension: Full Lungs: Clear to Auscultation, Normal Respiratory Effort Cardiovascular: Regular Rate, Regular Rhythm - Allergies Allergies/Adverse Reactions: Allergies Allergy/AdvReac Type Severity Reaction Status Date / Time No Known Allergies Allergy Verified 01/17/19 09:25 - Blood Blood Available: No - Anesthesia Plan Pre-Op Medication Ordered: None - Acknowledgements Anesthesia Type Planned: General Anesthesia Pt an Appropriate Candidate for the Planned Anesthesia: Yes Alternatives and Risks of Anesthesia Discussed w Pt/Guardian: Yes Pt/Guardian Understands and Agrees with Anesthesia Plan: Yes PreAnesthesia Questionnaire HEENT History: Reports: Impaired Vision Other HEENT History: Left eye was affected when he had a stroke. 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 Another stroke in 06/24 with balance problems (still occasionaly present) and problems moving rt. lower leg for short period of time. Respiratory History: Reports: None Gastrointestinal History: Reports: Colon Polyp, Diverticulosis, GERD, Other ( See Below) Other Gastrointestinal History: hx c-diff x3 Genitourinary History: Reports: BPH Musculoskeletal History: Reports: Fracture, Gout Other Musculoskeletal History: hx fx foot Neurological History: Reports: CVA Other Neuro History: Last CVA was on June 30, 2018. Psychiatric History: Reports: Anxiety, Depression Endocrine/Metabolic History: Reports: Obesity/BMI 30+ Hematologic History: Reports: None Immunologic History: Reports: None Oncologic (Cancer) History: Reports: Lymphoma (hodgkine's lymphoma in remission for 12 years) Dermatologic History: Reports: None - Infectious Disease History Infectious Disease History: Reports: Chicken Pox, Measles - Past Surgical History GI Surgical History: Reports: Appendectomy, Hernia, Inguinal Musculoskeletal Surgical History: Reports: Other (See Below) - SUBSTANCE USE Smoking Status *Q: Never Smoker Recreational Drug Use History: No - HOME MEDS Home Medications: Home Meds Aspirin [Ecotrin EC] 81 mg PO DAILY 04/29/15 [History] Citalopram Hydrobromide [Celexa] 20 mg PO DAILY 08/18/18 [History] Metoprolol Succinate 12.5 mg PO DAILY 08/18/18 [History] Omeprazole 20 mg PO ACBREAKFAST 08/18/18 [History] Rosuvastatin Calcium 40 mg PO BEDTIME 08/18/18 [History] Tamsulosin HCl 2 tab PO BEDTIME 08/18/18 [History] metFORMIN HCl [Metformin HCl] 500 mg PO BIDMEALS 08/18/18 [History] Diclofenac Sodium [Voltaren] 50 mg PO ASDIRECTED PRN 01/17/19 [History] - CURRENT (IN HOUSE) MEDS Current Meds: Current Medications Lactated Ringer's (Ringers, Lactated) 1,000 mls @ 125 mls/hr IV ASDIRECTED [facility] Discontinued Medications Dexamethasone (Dexamethasone) Confirm Administered Dose 20 mg .ROUTE .STK-MED ONE Stop: 01/23/19 07:07 Fentanyl (Sublimaze) Confirm Administered Dose 250 mcg .ROUTE .STK-MED ONE Stop: 01/23/19 07:06 Glycopyrrolate (Robinul) Confirm Administered Dose 0.8 mg .ROUTE .STK-MED ONE Stop: 01/23/19 07:07 Cefazolin Sodium/Dextrose 2 gm (/ Premix) 50 mls @ 100 mls/hr IV ONETIME ONE Stop: 01/23/19 06:29 Ketorolac Tromethamine (Toradol) Confirm Administered Dose 30 mg .ROUTE .STK- MED ONE Stop: 01/23/19 07:07 Lidocaine (Xylocaine-Mpf 2%) Confirm Administered Dose 5 ml .ROUTE .STK-MED ONE Stop: 01/23/19 07:07 Midazolam HCl (Versed 1 Mg/Ml) Confirm Administered Dose 2 mg .ROUTE .STK-MED ONE Stop: 01/23/19 07:05 Neostigmine Methylsulfate (Neostigmine) Confirm Administered Dose 5 mg .ROUTE .STK-MED ONE Stop: 01/23/19 07:07 Ondansetron HCl (Zofran) Confirm Administered Dose 4 mg .ROUTE .STK-MED ONE Stop: 01/23/19 07:07 Propofol (Diprivan 20 Ml) Confirm Administered Dose 200 mg .ROUTE .STK-MED ONE Stop: 01/23/19 07:05 Rocuronium [place] (Zemuron) Confirm Administered Dose 100 mg .ROUTE .STK-MED ONE Stop: 01/23/19 07:07 Sugammadex Sodium (Bridion) Confirm Administered Dose 200 mg .ROUTE .STK-MED ONE Stop: 01/23/19 07:27
[2019-01-23] MEDS ORDERED: Bupivacaine 0.5% 30 ML SDV ONE (07:38)
[2019-01-23] MEDS ORDERED: ceFAZolin 1 GM Vial ONE ×2 (07:39)
[2019-01-23] MEDS ORDERED: Sodium Chloride 0.9% 20 ML ONE (07:39)
[2019-01-23] MEDS ORDERED: Phenylephrine/Normal Saline 100 MCG/ML 10 ML Syringe ONE ×3 (08:10→10:11)
[2019-01-23] MEDS ORDERED: Acetaminophen/HYDROcodone 325-5 MG Tab PO PRN (09:29)
[2019-01-23] MEDS ORDERED: Ondansetron 4 MG/2 ML SDV IVPUSH PRN (09:29)
[2019-01-23] MEDS ORDERED: Morphine 10 MG/ML Syringe IVPUSH PRN (09:29)
--- NOTE | 2019-01-23 09:29 | PCM.OPNOTE ---
- General Post-Op/Procedure Note Date of Surgery/Procedure: 01/23/19 Operative Procedure(s): Repair incarcerated ventral hernia Pre Op Diagnosis: Incarcerated ventral hernia Post-Op Diagnosis: Same Anesthesia Technique: General ET Tube (ASA III) Primary Surgeon: Tyrone Xie Parliamentary Archivist: Silvana Ashford Fluid Replacement, Intraop: 1,100 EBL in mLs: 10 Condition: Good Free Text/Narrative:: DICTATION [id number] CPT CODE 87910
[2019-01-23] MEDS ORDERED: Lactated Ringers 1,000 ML IV SCH (09:30)
[2019-01-23] MEDS ORDERED: 50% Dextrose in Water 50 ML Syringe IVPUSH PRN (09:37)
[2019-01-23] MEDS ORDERED: Albuterol 0.083% 2.5 MG/3 ML Neb Soln NEB PRN (09:37)
[2019-01-23] MEDS ORDERED: Naloxone 0.4 MG/ML Syringe IVPUSH PRN (09:37)
[2019-01-23] MEDS ORDERED: EPINEPHrine 1:10,000 1 MG/10 ML Syringe IVPUSH PRN (09:37)
[2019-01-23] MEDS ORDERED: Atropine 0.1 MG/ML 10 ML Syringe IVPUSH PRN ×2 (09:37)
[2019-01-23] MEDS ORDERED: fentaNYL 100 MCG/2 ML SDV IVPUSH PRN (09:37)
--- NOTE | 2019-01-23 09:49 | OR ---
SURGEON: Tyrone Xie M.D. DATE OF PROCEDURE: 01/23/2019 OPERATION PERFORMED: Repair of incarcerated ventral hernia. PRIMARY SURGEON: Tyrone Xie MD. CHIEF METEOROLOGIST: materials assistant: Dr. Ashford, PGY2. ANESTHESIA: General endotracheal. ASA CLASSIFICATION: III. ESTIMATED BLOOD LOSS: 10 mL. INTRAOPERATIVE FLUID REPLACEMENT: 1100 mL of crystalloid. DESCRIPTION OF PROCEDURE: The patient was taken to the operating room and placed on the operating table in the supine position. Time-out was called for appropriate identification of the patient and procedure. The surgical site had been marked prior to the patient entering the operating room. Following satisfactory attainment of general endotracheal anesthesia, the abdomen was prepped with DuraPrep solution and sterile drapes were applied. The skin below the umbilicus was infiltrated with 0.5% Marcaine solution. A skin incision was made and deepened through the subcutaneous tissue obtaining hemostasis with the use of electrocautery. The hernia sac was dissected free, and in doing so, we did enter the hernia sac. No bowel was present, but there was omentum that needed sharp dissection to be reduced. Once the hernia sac was circumferentially dissected and opened, we were able to reduce the small amount of omentum that was present. The hernia sac was excised. Bleeding sites were electrocoagulated. The defect was approximately 1.5 cm. This was closed with multiple closely spaced interrupted 0 Ethibond sutures. All sutures were placed under direct vision and held with hemostats until the final suture had been placed. Once the sutures were tied down, the patient was given a Valsalva maneuver to 40 cm of water. The repair was solid. The wound was inspected for hemostasis and small bleeding sites were electrocoagulated. The umbilicus was tacked down to the fascia with a pursestring suture of 3-0 Vicryl. The subcutaneous tissue was reapproximated with 3-0 Vicryl and the skin edges reapproximated with subcuticular 4-0 Monocryl. A sterile cotton ball was placed into the umbilicus. Steri-Strips were placed over the wound and the wound was then dressed with a sterile Tegaderm pad. Sponge, needle, and instrument counts were all correct. Following emergence from anesthesia and extubation, the patient was taken to recovery room in satisfactory condition. WILMER / LOTTIE /[id number]
--- NOTE | 2019-01-23 09:51 | PCM.POSTAN ---
POST ANESTHESIA ASSESSMENT - MENTAL STATUS Mental Status: Alert, Oriented - VITAL SIGNS Vital Signs: Last Vital Signs Temp 97.7 F 01/23/19 09:27 Pulse 81 01/23/19 09:47 Resp 16 01/23/19 09:47 BP 114/72 01/23/19 09:47 Pulse Ox 95 01/23/19 09:47 - RESPIRATORY Respiratory Status: Respiratory Rate WNL, Airway Patent, O2 Saturation Stable - CARDIOVASCULAR CV Status: Pulse Rate WNL, Blood Pressure Stable - GASTROINTESTINAL GI Status: No Symptoms - PAIN Pain Score: 1 - POST OP HYDRATION Hydration Status: Adequate & Stable
[2019-01-23 11:14] VITALS: BP 118/77; PULSE 63
--- NOTE | 2019-01-23 12:14 | PCM48HPAN ---
Post Anesthesia Note - EVALUATION WITHIN 48HRS OF ANESTHETIC Vital Signs in Normal Range: Yes Patient Participated in Evaluation: Yes Respiratory Function Stable: Yes Airway Patent: Yes Cardiovascular Function Stable: Yes Hydration Status Stable: Yes Pain Control Satisfactory: Yes Nausea and Vomiting Control Satisfactory: Yes Mental Status Recovered: Yes Vital Signs: Last Vital Signs Temp 36.5 C 01/23/19 09:55 Pulse 63 01/23/19 10:55 Resp 16 01/23/19 10:55 BP 118/77 01/23/19 10:55 Pulse Ox 96 01/23/19 10:55 - COMMENTS/OBSERVATIONS Free Text/Narrative:: no anesthesia problems
== END 2019-01-23 12:40 | disposition home or self-care (01) ==
LOC: MW.SDS 06:42
PROVIDERS: ATTEND Surgery
DX: K43.6 Other and unspecified ventral hernia with obstruction, without gangrene (principal); I25.10 Atherosclerotic heart disease of native coronary artery without angina pectoris; K21.9 Gastro-esophageal reflux disease without esophagitis; E78.5 Hyperlipidemia, unspecified; I11.0 Hypertensive heart disease with heart failure; I50.20 Unspecified systolic (congestive) heart failure; N40.0 Benign prostatic hyperplasia without lower urinary tract symptoms; M10.9 Gout, unspecified; F41.9 Anxiety disorder, unspecified; F32.9 Major depressive disorder, single episode, unspecified; E66.9 Obesity, unspecified; Z79.82 Long term (current) use of aspirin; Z79.84 Long term (current) use of oral hypoglycemic drugs; Z79.899 Other long term (current) drug therapy; Z68.29 Body mass index [BMI] 29.0-29.9, adult
CPT/HCPCS: 49561; J0690; J1100; J1885; J2001; J2250; J2370; J2405; J2704; J3010; J3490; J7120; 00790; 82962; 88304

== ENCOUNTER 2020-02-06 18:47 | Emergency (ER) | payer OTHER ==
[2020-02-06] MEDS ORDERED: Dicyclomine 10 MG Cap PO ONE (19:47)
[2020-02-06] MEDS ORDERED: Sodium Chloride 0.9% 2.5 ML Syringe FLUSH PRN (19:47)
[2020-02-06] MEDS ORDERED: Sodium Chloride 0.9% 10 ML Syringe FLUSH PRN (19:47)
--- NOTE | 2020-02-06 19:50 | EDM.PDOC ---
ED HPI GENERAL MEDICAL PROBLEM - General Chief Complaint: Abdominal Pain Stated Complaint: LOWER ABDOMIN PAIN Time Seen by Provider: 02/06/20 19:37 - History of Present Illness INITIAL COMMENTS - FREE TEXT/NARRATIVE: 59-year-old male with history of anxiety and depression history of diverticulitis in the past who is presenting with abdominal pain. Patient reports that for the last 4 weeks or so he has had intermittent severe cramping abdominal pain often accompanied by feeling that he has to desperately have a bowel movement he will have a bowel movement and then have only partial relief and feel like he is unable to fully empty his bowels. He has had significant pain the last few hours this evening and this is the worst that has been. He tried starting a probiotic several days ago without improvement. No fevers no chills the pain is a constant low-level minimal pain and then has intermittent severe cramping spikes. Patient reports formed dark brown stool. No melena no hematochezia. Pain radiates into the bilateral inguinal region. Abdomen Pain Score (Numeric/FACES): 8 - Related Data Allergies Allergy/AdvReac Type Severity Reaction Status Date / Time No Known Allergies Allergy Verified 02/06/20 20:01 Home Meds: Home Meds Aspirin [Ecotrin EC] 81 mg PO DAILY 04/29/15 [History] Citalopram Hydrobromide [Celexa] 20 mg PO DAILY 08/18/18 [History] Metoprolol Succinate 12.5 mg PO DAILY 08/18/18 [History] Omeprazole 20 mg PO ACBREAKFAST 08/18/18 [History] Rosuvastatin Calcium 40 mg PO BEDTIME 08/18/18 [History] Tamsulosin HCl 2 tab PO BEDTIME 08/18/18 [History] metFORMIN HCl [Metformin HCl] 500 mg PO BIDMEALS 08/18/18 [History] Diclofenac Sodium [Voltaren] 50 mg PO ASDIRECTED PRN 01/17/19 [History] Acetaminophen/HYDROcodone [[place] 325-5 MG] 1 tab PO Q6H PRN 3 Days #10 tablet 01/23/19 [Rx] Amoxicillin/Potassium Clav [Augmentin 875-125 Tablet] 1 each PO BID 10 Days #20 tablet 02/06/20 [Rx] Past Medical History HEENT History: Reports: Impaired Vision Other HEENT History: Left eye was affected when he had a stroke. 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 Another stroke in 06/24 with balance problems (still occasionaly present) and problems moving rt. lower leg for short period of time. Respiratory History: Reports: None Gastrointestinal History: Reports: Diverticulosis, GERD, Other (See Below) Other Gastrointestinal History: hx c-diff x3 Genitourinary History: Reports: BPH Musculoskeletal History: Reports: Fracture, Gout Other Musculoskeletal History: hx fx foot Neurological History: Reports: CVA Other Neuro History: Last CVA was on June 30, 2018. Psychiatric History: Reports: Anxiety, Depression Endocrine/Metabolic History: Reports: Obesity/BMI 30+ Hematologic History: Reports: None Immunologic History: Reports: None Oncologic (Cancer) History: Reports: Lymphoma (hodgkine's lymphoma in remission for 12 years) Dermatologic History: Reports: None - Infectious Disease History Infectious Disease History: Reports: Chicken Pox, Measles - Past Surgical History GI Surgical History: Reports: Appendectomy, Hernia, Inguinal Musculoskeletal Surgical History: Reports: Other (See Below) Social & Family History - Family History Family Medical History: No Pertinent Family History - Caffeine Use Caffeine Use: Reports: Coffee Caffeine Use Comment: 3 cups a day - Living Situation & Occupation Living situation: Reports: Single Occupation: Employed ED ROS GENERAL - Review of Systems Review Of Systems: See Below Free Text/Narrative/Comment: General: No fever. Skin: No rash. Eyes: No vision problems. ENT: No sore throat. Neck: No neck stiffness. Respiratory: No shortness of breath. Cardiac: No chest pain. Gastrointestinal: Per HPI Urinary: No dysuria. Musculoskeletal: No myalgias/arthralgias. Neurologic: No headache. ED EXAM, GENERAL - Physical Exam Exam: See Below Free Text/Narrative:: General Appearance: No acute distress, appears comfortable Skin: No rash HEENT: Normocephalic/atraumatic, sclera anicteric, mucous membranes moist Neck: Normal range of motion Chest and Lungs: Bilateral breath sounds, clear to auscultation Cardiovascular: Regular rate and rhythm, no murmur Abdomen: Mildly distended but soft, bilateral lower quadrant tenderness without guarding or rebound Back: Normal Musculoskeletal: No edema or tenderness Neurologic: Awake, alert, no obvious deficits, moving all extremities Psychiatric: Appropriate, cooperative Course - Vital Signs Last Recorded V/S: Last Vital Signs Temp 98.8 F 02/06/20 19:30 Pulse 67 02/06/20 21:35 Resp 17 02/06/20 21:35 BP 128/83 02/06/20 21:35 Pulse Ox 94 L 02/06/20 21:35 - Orders/Labs/Meds Orders: Active Orders 24 hr Category Date Time Status Sodium Chloride 0.9% [Saline Flush] Med 02/06/20 19:47 Active 10 ml FLUSH ASDIRECTED PRN Sodium Chloride 0.9% [Saline Flush] Med 02/06/20 19:47 Active 2.5 ml FLUSH ASDIRECTED PRN Saline Lock Insert [OM.PC] Stat Oth 02/06/20 19:47 Ordered Medication Orders Sodium Chloride (Saline Flush) 10 ml FLUSH ASDIRECTED PRN PRN Reason: Keep Vein Open Last Admin: 02/06/20 20:04 Dose: 10 ml Documented by: SHAR Sodium Chloride (Saline Flush) 2.5 ml FLUSH ASDIRECTED PRN PRN Reason: Keep Vein Open Last Admin: 02/06/20 20:04 Dose: 2.5 ml Documented by: SHAR Labs: Laboratory Tests 02/06/20 02/06/20 Range/Units 19:51 19:51 WBC 8.87 (4.0-11.0) K/uL RBC 4.19 L (4.50-5.90) M/uL Hgb 13.0 (13.0-17.0) g/dL Hct 40.0 (38.0-50.0) % MCV 95.5 (80.0-98.0) fL MCH 31.0 (27.0-32.0) pg MCHC 32.5 (31.0-37.0) g/dL RDW Std Deviation 46.5 (28.0-62.0) fl RDW Coeff of Janet 13 (11.0-15.0) % Plt Count 174 (150-400) K/uL MPV 10.70 (7.40-12.00) fL Neut % (Auto) 79.0 (48.0-80.0) % Lymph % (Auto) 12.9 L (16.0-40.0) % [place] % (Auto) 6.8 (0.0-15.0) % Eos % (Auto) 1.2 (0.0-7.0) % Baso % (Auto) 0.1 (0.0-1.5) % Neut # (Auto) 7.0 H (1.4-5.7) K/uL Lymph # (Auto) 1.1 (0.6-2.4) K/uL [place] # (Auto) 0.6 (0.0-0.8) K/uL Eos # (Auto) 0.1 (0.0-0.7) K/uL Baso # (Auto) 0.0 (0.0-0.1) K/uL Nucleated RBC % 0.0 /100WBC Nucleated RBCs # 0 K/uL Sodium 136 (136-148) mmol/L Potassium 4.1 (3.5-5.1) mmol/L Chloride 101 (98-107) mmol/L Carbon Dioxide 29.0 (21.0-32.0) mmol/L BUN 21 H (7.0-18.0) mg/dL Creatinine 1.2 (0.8-1.3) mg/dL Est Cr Clr Drug Dosing TNP Estimated GFR (MDRD) > 60.0 ml/min Glucose 100 (74-106) mg/dL Calcium 10.0 (8.5-10.1) mg/dL Total Bilirubin 0.4 (0.2-1.0) mg/dL AST 57 H (15-37) IU/L ALT 95 H (14-63) IU/L Alkaline Phosphatase 59 (46-116) U/L Total Protein 7.2 (6.4-8.2) g/dL Albumin 4.0 (3.4-5.0) g/dL Globulin 3.2 (2.6-4.0) g/dL Albumin/Globulin Ratio 1.3 (0.9-1.6) Lipase 158 (73-393) U/L Meds: Medications Generic Name Dose Route Start Last Admin Trade Name Freq PRN Reason Stop Dose Admin Sodium Chloride 10 ml 02/06/20 19:47 02/06/20 20:04 Saline Flush FLUSH 10 ml ASDIRECTED PRN Administration Keep Vein Open Sodium Chloride 2.5 ml 02/06/20 19:47 02/06/20 20:04 Saline Flush FLUSH 2.5 ml ASDIRECTED PRN Administration Keep Vein Open Discontinued Medications Generic Name Dose Route Start Last Admin Trade Name Freq PRN Reason Stop Dose Admin Dicyclomine HCl 10 mg 02/06/20 19:47 02/06/20 20:03 Bentyl PO 02/06/20 19:48 10 mg ONETIME ONE Administration Iopamidol 100 ml 02/06/20 21:14 02/06/20 21:15 Isovue Multipack-370 (76%) IVPUSH 02/06/20 21:15 100 ml ONETIME STA Administration Departure - Departure Time of Disposition: 21:59 Disposition: Home, Self-Care 01 Condition: Good Clinical Impression: Diverticulitis - Discharge Information *PRESCRIPTION DRUG MONITORING PROGRAM REVIEWED*: Not Applicable *COPY OF PRESCRIPTION DRUG MONITORING REPORT IN PATIENT OMAYRA: Not Applicable Prescriptions: Amoxicillin/Potassium Clav [Augmentin 875-125 Tablet] 1 each PO BID 10 Days #20 tablet Referrals: Norma Fenton PA [Primary Care Provider] - Forms: ED Department Discharge Additional Instructions: Please continue taking the probiotic. My hope and expectation is that the antibiotics will kick in within the next 48 hours and you will start to feel better. However, it is very important you complete the entire antibiotic course. If your pain worsens you develop a fever after the next 2 days or have any other new symptoms that concern you please return to the ER. The following information is given to patients seen in the emergency department who are being discharged to home. This information is to outline your options for follow-up care. We provide all patients seen in our emergency department with a follow-up referral. The need for follow-up, as well as the timing and circumstances, are variable depending upon the specifics of your emergency department visit. If you don't have a primary care physician on staff, we will provide you with a referral. We always advise you to contact your personal physician following an emergency department visit to inform them of the circumstance of the visit and for follow-up with them and/or the need for any referrals to a consulting specialist. The emergency department will also refer you to a specialist when appropriate. This referral assures that you have the opportunity for follow-up care with a specialist. All of these measure are taken in an effort to provide you with optimal care, which includes your follow-up. Under all circumstances we always encourage you to contact your private physician who remains a resource for coordinating your care. When calling for follow-up care, please make the office aware that this follow-up is from your recent emergency room visit. If for any reason you are refused follow-up, please contact the [facility] Emergency Department at and asked to speak to the emergency department charge nurse. Sepsis Event Note (ED) - Focused Exam Vital Signs: Vital Signs Temp Pulse Resp BP Pulse Ox 02/06/20 21:35 67 17 128/83 94 L 02/06/20 19:30 98.8 F 72 18 147/79 H 97 - My Orders Last 24 Hours: My Active Orders 02/06/20 19:47 Sodium Chloride 0.9% [Saline Flush] 10 ml FLUSH ASDIRECTED PRN Sodium Chloride 0.9% [Saline Flush] 2.5 ml FLUSH ASDIRECTED PRN Saline Lock Insert [OM.PC] Stat - Assessment/Plan Last 24 Hours: My Active Orders 02/06/20 19:47 Sodium Chloride 0.9% [Saline Flush] 10 ml FLUSH ASDIRECTED PRN Sodium Chloride 0.9% [Saline Flush] 2.5 ml FLUSH ASDIRECTED PRN Saline Lock Insert [OM.PC] Stat Assessment:: 59-year-old male present with signs and symptoms that seem most consistent with functional abdominal pain but multiple other etiologies considered as well given his prior history of diverticulitis needs to be considered appendicitis is felt much less likely biliary pathology felt less most likely as well. We will try Bentyl for symptom relief CBC CMP CT scan pending. 2158: Patient's labs are good mild leukocytosis CT scan demonstrates uncomplicated acute diverticulitis I do think the patient is good candidate for home treatment he is afebrile he has no peritonitis or signs of abscess. Will cover with Augmentin patient given a dose of Toradol for residual pain return precautions discussed and understood.
[2020-02-06 20:30] LABS: BLOOD UREA NITROGEN,BUN 21 mg/dL (7.0-18.0); CHLORIDE,CL 101 mmol/L (98-107); GLUCOSE RANDOM 100 mg/dL (74-106); LIPASE 158 U/L (73-393); POTASSIUM,K 4.1 mmol/L (3.5-5.1); SODIUM,NA 136 mmol/L (136-148)
[2020-02-06] MEDS ORDERED: Iopamidol 755 MG/ML 500 ML Multipack Bottle IVPUSH STA (21:14)
--- NOTE | 2020-02-06 21:42 | CT ---
Clinical INDICATION: Lower abdominal pain and tenderness. History all diverticulitis. TECHNIQUE: Axial intravenously infused CT cuts were performed from above the diaphragm to the ischial tuberosities. 100 mL of Isovue-370 has been injected intravenously. COMPARISON: 02/24/2019. Findings : There are several colonic diverticula. There is mucosal thickening and pericolonic fat stranding of the mid sigmoid colon consistent with acute diverticulitis. There is no abscess. The small bowel appears normal. The appendix is not identified with certainty. There are no right lower quadrant inflammatory changes. There is moderate diffuse fatty infiltration liver. There is small hiatal hernia. The spleen, pancreas, adrenals and right kidney appear normal. There are 2 nonobstructing calculi within the right kidney with the larger measuring 7 mm in diameter. There are no enlarged retroperitoneal or mesenteric lymph nodes. The prostate gland is very bulky measuring up to 5.7 cm AP, 5.8 cm transversely and 6.9 cm cranial caudally. The seminal vesicles appear normal. There are no enlarged iliac or inguinal lymph nodes. There is a small direct fat containing left inguinal hernia. There are no nodules or masses at the lung bases. The scan has also been reviewed on bone windows. No lytic or sclerotic skeletal lesions are identified. IMPRESSION: 1. Moderate acute sigmoid diverticulitis with no abscess. 2. Moderate diffuse fatty infiltration of liver. 3. Nonobstructive left renal calculi. Small hiatal hernia. 4. Bulky prostate gland. 5. Small fat containing direct left inguinal hernia. Please note that all CT scans at this facility use dose modulation, iterative reconstruction, and/or weight-based dosing when appropriate to reduce radiation dose to as low as reasonably achievable. Dictated by Edison Pineda MD @ Feb 06 2020 9:32PM Signed by Dr. Edison Pineda @ Feb 06 2020 9:40PM
[2020-02-06] MEDS ORDERED: Amoxicillin/Clavulanate K 875-125 MG Tab PO ONE (22:01)
[2020-02-06] MEDS ORDERED: Ketorolac 30 MG/ML SDV IVPUSH ONE (22:01)
[2020-02-06 22:43] VITALS: BP 137/89; PULSE 66
== END 2020-02-06 22:39 | disposition home or self-care (01) ==
LOC: MW.ED 18:47
DX: K57.32 Diverticulitis of large intestine without perforation or abscess without bleeding (principal); I25.10 Atherosclerotic heart disease of native coronary artery without angina pectoris; E78.00 Pure hypercholesterolemia, unspecified; I11.0 Hypertensive heart disease with heart failure; I50.20 Unspecified systolic (congestive) heart failure; I25.2 Old myocardial infarction; K21.9 Gastro-esophageal reflux disease without esophagitis; M10.9 Gout, unspecified; F41.9 Anxiety disorder, unspecified; F32.9 Major depressive disorder, single episode, unspecified; E66.9 Obesity, unspecified; Z68.31 Body mass index [BMI] 31.0-31.9, adult; Z79.82 Long term (current) use of aspirin; Z79.899 Other long term (current) drug therapy
CPT/HCPCS: 36415; 74177; 80053; 83690; 85025; 96374; 99284; A9270; J1885; Q9967

== ENCOUNTER 2020-02-26 16:40 | Emergency (ER) | payer OTHER ==
[2020-02-26] MEDS ORDERED: Sodium Chloride 0.9% 10 ML Syringe FLUSH PRN (16:47)
[2020-02-26] MEDS ORDERED: Sodium Chloride 0.9% 2.5 ML Syringe FLUSH PRN (16:47)
--- NOTE | 2020-02-26 16:51 | EDM.PDOC ---
ED HPI GENERAL MEDICAL PROBLEM - General Chief Complaint: Abdominal Pain Stated Complaint: SICK Time Seen by Provider: 02/26/20 16:47 Source of Information: Reports: Patient History Limitations: Reports: No Limitations - History of Present Illness INITIAL COMMENTS - FREE TEXT/NARRATIVE: HISTORY AND PHYSICAL: History of present illness: Patient is a 59-year-old male who presents to the emergency room with complaints of abdominal pain and sensation of constipation. Patient had similar symptoms on 02/06/2020 and at that time was seen in the emergency room and had a CT scan. He was diagnosed with diverticulitis and was given a prescription for Augmentin and Flagyl. He states after completing the course of antibiotics he felt much improved. Today the abdominal pain returned at 0800 and he presented to the clinic for evaluation. The clinic had ordered an outpatient CT and called him stating that his results required him to come to the emergency room. Patient describes the pain as a generalized abdominal pain with tenderness to palpation. He states he feels "full" and sensation of feeling constipated. He had small amount of hard stool this morning. Patient denies any fever, chills, headache, change in vision, syncope or near syncope. Denies any chest pain, back pain, shortness of breath or cough. Denies any nausea, vomiting, diarrhea, constipation or dysuria. Has not noted any blood in urine or stool. Denies any testicular pain, redness or swelling. Patient has been eating and drinking appropriately. Last ate breakfast at 8 AM. Review of systems: As per history of present illness and below otherwise all systems reviewed and negative. Past medical history: As per history of present illness and as reviewed below otherwise noncontributory. Surgical history: As per history of present illness and as reviewed below otherwise noncontributory. Social history: See social history for further information Family history: As per history of present illness and as reviewed below otherwise noncontributory. Physical exam: General: Well developed and well nourished 59-year-old male. Alert and orientated x 3. Nontoxic in appearance and in no acute distress. Vital signs are stable and have been reviewed by me. Nursing notes were reviewed. HEENT: Atraumatic, normocephalic, pupils equal and reactive bilaterally, negative for conjunctival pallor or scleral icterus, mucous membranes moist, neck supple, nontender, trachea midline. No drooling or trismus noted. No meningeal signs. No hot potato voice noted. Lungs: Clear to auscultation, breath sounds equal bilaterally, chest nontender. Normal work of breathing, no accessory muscles used. Heart: S1S2, regular rate and rhythm without overt murmur Abdomen: Soft, obese, tender throughout (moreso in the right/left low abdomen). Negative for masses or costovertebral tenderness. Pelvis: Stable nontender. Skin: Intact, warm, dry. No lesions or rashes noted. Hematologic: No petechiae or purpra. Mucosa appropriate color and normal nail bed color and refill. Extremities: Atraumatic, moves all extremities per self without difficulty or deficits, negative for cords or calf pain. Neurovascular unremarkable. Neuro: Awake, alert, oriented. Cranial nerves II through XII unremarkable. Cerebellum unremarkable. Motor and sensory unremarkable throughout. Exam nonfocal. Psychiatric: Mood and affect are appropriate. Normal thought process. Answering questions appropriately. Notes: CT that was done in the clinic earlier today shows a evolution of previously seen sigmoid diverticulitis with development of a 2.8 cm rim enhancing fluid collection along the antimesenteric border interposed between the dome of the bladder. There is no evidence of gross intraperitoneal contamination. 1815: Dr Carlson, General Surgeon on-call, was consulted on this patient. He would prefer this patient to be transferred to a facility that has IR. 181: [facility] was called. Dr Mckeon is aware of this patient and is agreeable to excepting this patient for further care and management. Patient was also made aware of the need for transfer and is agreeable to plan of care. Zosyn is currently completed. His vital signs are stable. Negative COVID Please note that patient has been dealing with intermittent vertigo/balance issues for 2+ years - has been seen and evaluated by PCP. Has an outpatient MRI scheduled for tomorrow for further Diagnostics: CBC, CMP, Lactate w/ reflex, BC x2, COVID Therapeutics: Morphine, Zosyn 4.5g Impression: Diverticulitis with abscess Plan: Transfer to [facility] Definitive disposition and diagnosis as appropriate pending reevaluation and review of above. Abdominal Pain Pain Score (Numeric/FACES): 10 - Related Data Allergies Allergy/AdvReac Type Severity Reaction Status Date / Time No Known Allergies Allergy Verified 02/26/20 17:15 Home Meds: Home Meds Aspirin [Ecotrin EC] 81 mg PO DAILY 04/29/15 [History] Citalopram Hydrobromide [Celexa] 20 mg PO DAILY 08/18/18 [History] Metoprolol Succinate 12.5 mg PO DAILY 08/18/18 [History] Omeprazole 20 mg PO ACBREAKFAST 08/18/18 [History] Rosuvastatin Calcium 40 mg PO BEDTIME 08/18/18 [History] Tamsulosin HCl 2 tab PO BEDTIME 08/18/18 [History] metFORMIN HCl [Metformin HCl] 500 mg PO BIDMEALS 08/18/18 [History] Diclofenac Sodium [Voltaren] 50 mg PO ASDIRECTED PRN 01/17/19 [History] Acetaminophen/HYDROcodone [[place] 325-5 MG] 1 tab PO Q6H PRN 3 Days #10 tablet 01/23/19 [Rx] Amoxicillin/Potassium Clav [Augmentin 875-125 Tablet] 1 each PO BID 10 Days #20 tablet 02/06/20 [Rx] Past Medical History HEENT History: Reports: Impaired Vision Other HEENT History: Left eye was affected when he had a stroke. Peripheral vision was affected Cardiovascular History: Reports: CAD, High Cholesterol, Hypertension, AR, Stents, Other (See Below) Other Cardiovascular History: AR in 2010, followed by stent. 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 Another stroke in 06/24 with balance problems (still occasionaly present) and problems moving rt. lower leg for short period of time. Respiratory History: Reports: None Gastrointestinal History: Reports: Diverticulosis, GERD, Other (See Below) Other Gastrointestinal History: hx c-diff x3 Genitourinary History: Reports: BPH Musculoskeletal History: Reports: Fracture, Gout Other Musculoskeletal History: hx fx foot Neurological History: Reports: CVA Other Neuro History: Last CVA was on June 30, 2018. Psychiatric History: Reports: Anxiety, Depression Endocrine/Metabolic History: Reports: Obesity/BMI 30+ Insulin Pump Model and Cephalometric Technician: None Hematologic History: Reports: None Immunologic History: Reports: None Oncologic (Cancer) History: Reports: Lymphoma Dermatologic History: Reports: None - Infectious Disease History Infectious Disease History: Reports: Chicken Pox, Measles - Past Surgical History GI Surgical History: Reports: Appendectomy, Hernia, Inguinal Musculoskeletal Surgical History: Reports: Other (See Below) Social & Family History - Family History Family Medical History: No Pertinent Family History - Caffeine Use Caffeine Use: Reports: None Caffeine Use Comment: 3 cups a day - Living Situation & Occupation Living situation: Reports: Single Occupation: Employed ED ROS GENERAL - Review of Systems Review Of Systems: Comprehensive ROS is negative, except as noted in HPI. ED EXAM, GI/ABD - Physical Exam Exam: See Below (See dictation) Course - Vital Signs Last Recorded V/S: Last Vital Signs Temp 97.8 F 02/26/20 17:17 Pulse 80 02/26/20 18:14 Resp 16 02/26/20 18:14 BP 113/71 02/26/20 18:14 Pulse Ox 95 02/26/20 18:14 - Orders/Labs/Meds Orders: Active Orders 24 hr Category Date Time Status CULTURE BLOOD [BC] Stat Lab 02/26/20 17:06 Received CULTURE BLOOD [BC] Stat Lab 02/26/20 17:20 Received Sodium Chloride 0.9% [Saline Flush] Med 02/26/20 16:47 Active 10 ml FLUSH ASDIRECTED PRN Sodium Chloride 0.9% [Saline Flush] Med 02/26/20 16:47 Active 2.5 ml FLUSH ASDIRECTED PRN Blood Culture x2 Reflex Set [OM.PC] Stat Oth 02/26/20 17:00 Ordered Saline Lock Insert [OM.PC] Stat Oth 02/26/20 16:47 Ordered Medication Orders Sodium Chloride (Saline Flush) 10 ml FLUSH ASDIRECTED PRN PRN Reason: Keep Vein Open Last Admin: 02/26/20 17:34 Dose: 10 ml Documented by: [email or web address] Sodium Chloride (Saline Flush) 2.5 ml FLUSH ASDIRECTED PRN PRN Reason: Keep Vein Open Last Admin: 02/26/20 17:34 Dose: 2.5 ml Documented by: [email or web address] Labs: Laboratory Tests 02/26/20 02/26/20 02/26/20 Range/Units 16:52 17:00 17:00 WBC 8.96 (4.0-11.0) K/uL RBC 4.45 L (4.50-5.90) M/uL Hgb 14.0 (13.0-17.0) g/dL Hct 42.8 (38.0-50.0) % MCV 96.2 (80.0-98.0) fL MCH 31.5 (27.0-32.0) pg MCHC 32.7 (31.0-37.0) g/dL RDW Std Deviation 47.5 (28.0-62.0) fl RDW Coeff of Janet 13 (11.0-15.0) % Plt Count 189 (150-400) K/uL MPV 11.50 (7.40-12.00) fL Neut % (Auto) 83.3 H (48.0-80.0) % Lymph % (Auto) 10.2 L (16.0-40.0) % Gordon % (Auto) 5.9 (0.0-15.0) % Eos % (Auto) 0.4 (0.0-7.0) % Baso % (Auto) 0.2 (0.0-1.5) % Neut # (Auto) 7.5 H (1.4-5.7) K/uL Lymph # (Auto) 0.9 (0.6-2.4) K/uL Gordon # (Auto) 0.5 (0.0-0.8) K/uL Eos # (Auto) 0.0 (0.0-0.7) K/uL Baso # (Auto) 0.0 (0.0-0.1) K/uL Nucleated RBC % 0.0 /100WBC Nucleated RBCs # 0 K/uL Lactate (0.20-2.00) mmol/L Sodium 138 (136-148) mmol/L Potassium 3.9 (3.5-5.1) mmol/L Chloride 100 (98-107) mmol/L Carbon Dioxide 26.1 (21.0-32.0) mmol/L BUN 12 (7.0-18.0) mg/dL Creatinine 1.0 (0.8-1.3) mg/dL Est Cr Clr Drug Dosing 70.89 mL/min Estimated GFR (MDRD) > 60.0 ml/min Glucose 106 (74-106) mg/dL Calcium 10.2 H (8.5-10.1) mg/dL Total Bilirubin 0.6 (0.2-1.0) mg/dL AST 83 H (15-37) IU/L ALT 117 H (14-63) IU/L Alkaline Phosphatase 59 (46-116) U/L Total Protein 7.7 (6.4-8.2) g/dL Albumin 4.3 (3.4-5.0) g/dL Globulin 3.4 (2.6-4.0) g/dL Albumin/Globulin Ratio 1.3 (0.9-1.6) Lipase 118 (73-393) U/L Urine Color YELLOW Urine Appearance CLEAR Urine pH 7.0 (5.0-8.0) Ur Specific [place] 1.010 (1.001-1.035) Urine Protein NEGATIVE (NEGATIVE) mg/dL Urine Glucose (UA) NEGATIVE (NEGATIVE) mg/dL Urine Ketones NEGATIVE (NEGATIVE) mg/dL Urine Occult Blood NEGATIVE (NEGATIVE) Urine Nitrite NEGATIVE (NEGATIVE) Urine Bilirubin NEGATIVE (NEGATIVE) Urine Urobilinogen 0.2 (<2.0) EU/dL Ur Leukocyte Esterase NEGATIVE (NEGATIVE) SARS-CoV-2 RNA (LY) (NEGATIVE) 02/26/20 02/26/20 Range/Units 17:00 17:35 WBC (4.0-11.0) K/uL RBC (4.50-5.90) M/uL Hgb (13.0-17.0) g/dL Hct (38.0-50.0) % MCV (80.0-98.0) fL MCH (27.0-32.0) pg MCHC (31.0-37.0) g/dL RDW Std Deviation (28.0-62.0) fl RDW Coeff of Janet (11.0-15.0) % Plt Count (150-400) K/uL MPV (7.40-12.00) fL Neut % (Auto) (48.0-80.0) % Lymph % (Auto) (16.0-40.0) % Gordon % (Auto) (0.0-15.0) % Eos % (Auto) (0.0-7.0) % Baso % (Auto) (0.0-1.5) % Neut # (Auto) (1.4-5.7) K/uL Lymph # (Auto) (0.6-2.4) K/uL Gordon # (Auto) (0.0-0.8) K/uL Eos # (Auto) (0.0-0.7) K/uL Baso # (Auto) (0.0-0.1) K/uL Nucleated RBC % /100WBC Nucleated RBCs # K/uL Lactate 1.0 (0.20-2.00) mmol/L Sodium (136-148) mmol/L Potassium (3.5-5.1) mmol/L Chloride (98-107) mmol/L Carbon Dioxide (21.0-32.0) mmol/L BUN (7.0-18.0) mg/dL Creatinine (0.8-1.3) mg/dL Est Cr Clr Drug Dosing mL/min Estimated GFR (MDRD) ml/min Glucose (74-106) mg/dL Calcium (8.5-10.1) mg/dL Total Bilirubin (0.2-1.0) mg/dL AST (15-37) IU/L ALT (14-63) IU/L Alkaline Phosphatase (46-116) U/L Total Protein (6.4-8.2) g/dL Albumin (3.4-5.0) g/dL Globulin (2.6-4.0) g/dL Albumin/Globulin Ratio (0.9-1.6) Lipase (73-393) U/L Urine Color Urine Appearance Urine pH (5.0-8.0) Ur Specific [place] (1.001-1.035) Urine Protein (NEGATIVE) mg/dL Urine Glucose (UA) (NEGATIVE) mg/dL Urine Ketones (NEGATIVE) mg/dL Urine Occult Blood (NEGATIVE) Urine Nitrite (NEGATIVE) Urine Bilirubin (NEGATIVE) Urine Urobilinogen (<2.0) EU/dL Ur Leukocyte Esterase (NEGATIVE) SARS-CoV-2 RNA (LY) NEGATIVE (NEGATIVE) Meds: Medications Generic Name Dose Route Start Last Admin Trade Name Freq PRN Reason Stop Dose Admin Sodium Chloride 10 ml 02/26/20 16:47 02/26/20 17:34 Saline Flush FLUSH 10 ml ASDIRECTED PRN Administration Keep Vein Open Sodium Chloride 2.5 ml 02/26/20 16:47 02/26/20 17:34 Saline Flush FLUSH 2.5 ml ASDIRECTED PRN Administration Keep Vein Open Discontinued Medications Generic Name Dose Route Start Last Admin Trade Name Freq PRN Reason Stop Dose Admin Piperacillin Sod/Tazobactam 100 mls @ 100 mls/hr 02/26/20 17:03 02/26/20 17:34 Sod 4.5 gm/ Sodium Chloride IV 02/26/20 18:02 100 mls/hr ONETIME ONE Administration Morphine Sulfate 4 mg 02/26/20 17:01 02/26/20 17:34 Morphine IVPUSH 02/26/20 17:02 4 mg ONETIME ONE Administration Departure - Departure Time of Disposition: 19:01 Disposition: DC/Tfer to [facility] 02 Clinical Impression: Diverticulitis - Discharge Information Referrals: Norma Fenton PA [Primary Care Provider] - Forms: ED Department Discharge Sepsis Event Note (ED) - Focused Exam Vital Signs: Vital Signs Temp Pulse Resp BP Pulse Ox 02/26/20 18:14 80 16 113/71 95 02/26/20 17:50 82 16 124/77 94 L 02/26/20 17:17 97.8 F 85 17 134/70 98 - My Orders Last 24 Hours: My Active Orders 02/26/20 16:47 Sodium Chloride 0.9% [Saline Flush] 10 ml FLUSH ASDIRECTED PRN Sodium Chloride 0.9% [Saline Flush] 2.5 ml FLUSH ASDIRECTED PRN Saline Lock Insert [OM.PC] Stat 02/26/20 17:00 Blood Culture x2 Reflex Set [OM.PC] Stat 02/26/20 17:06 CULTURE BLOOD [BC] Stat 02/26/20 17:20 CULTURE BLOOD [BC] Stat - Assessment/Plan Last 24 Hours: My Active Orders 02/26/20 16:47 Sodium Chloride 0.9% [Saline Flush] 10 ml FLUSH ASDIRECTED PRN Sodium Chloride 0.9% [Saline Flush] 2.5 ml FLUSH ASDIRECTED PRN Saline Lock Insert [OM.PC] Stat 02/26/20 17:00 Blood Culture x2 Reflex Set [OM.PC] Stat 02/26/20 17:06 CULTURE BLOOD [BC] Stat 02/26/20 17:20 CULTURE BLOOD [BC] Stat
[2020-02-26] MEDS ORDERED: Morphine 4 MG/ML Syringe IVPUSH ONE (17:01)
[2020-02-26] MEDS ORDERED: Piperacillin/Tazobactam 4.5 GM in Sodium Chloride 0.9% 100 ML IV ONE (17:03)
[2020-02-26 17:39] LABS: BLOOD UREA NITROGEN,BUN 12 mg/dL (7.0-18.0); CARBON DIOXIDE,CO2 26.1 mmol/L (21.0-32.0); CHLORIDE,CL 100 mmol/L (98-107); GLUCOSE RANDOM 106 mg/dL (74-106); LIPASE 118 U/L (73-393); POTASSIUM,K 3.9 mmol/L (3.5-5.1); SODIUM,NA 138 mmol/L (136-148)
[2020-02-26 18:15] VITALS: BP 113/71; PULSE 80
== END 2020-02-26 19:42 ==
LOC: MW.ED 16:40
DX: K57.80 Diverticulitis of intestine, part unspecified, with perforation and abscess without bleeding (principal); I25.10 Atherosclerotic heart disease of native coronary artery without angina pectoris; E78.00 Pure hypercholesterolemia, unspecified; I10 Essential (primary) hypertension; I25.2 Old myocardial infarction; K21.9 Gastro-esophageal reflux disease without esophagitis; M10.9 Gout, unspecified; F41.9 Anxiety disorder, unspecified; F32.9 Major depressive disorder, single episode, unspecified; E66.9 Obesity, unspecified; Z68.41 Body mass index [BMI] 40.0-44.9, adult; Z79.82 Long term (current) use of aspirin; Z79.899 Other long term (current) drug therapy; Z20.828 Contact with and (suspected) exposure to other viral communicable diseases
CPT/HCPCS: 36415; 80053; 81003; 83605; 83690; 85025; 87040; 87635; 96365; 96375; 99285; J2270; J2543; J7050; 99284; U0002

== ENCOUNTER 2020-10-09 13:18 | Emergency (ER) | payer BC ==
[2020-10-09] MEDS ORDERED: Sodium Chloride 0.9% 500 ML IV ONE (14:20)
[2020-10-09] MEDS ORDERED: Sodium Chloride 0.9% 2.5 ML Syringe FLUSH PRN (14:20)
[2020-10-09] MEDS ORDERED: Sodium Chloride 0.9% 10 ML Syringe FLUSH PRN (14:20)
--- NOTE | 2020-10-09 14:24 | EDM.PDOC ---
ED HPI GENERAL MEDICAL PROBLEM - General Chief Complaint: Abdominal Pain Stated Complaint: ABD PAIN S/P ABD SX Time Seen by Provider: 10/09/20 14:09 Source of Information: Reports: Patient History Limitations: Reports: No Limitations - History of Present Illness INITIAL COMMENTS - FREE TEXT/NARRATIVE: 60-year-old male with past medical history CAD, hypertension, type 2 diabetes, recurrent diverticulitis status post sigmoid colon resection 08/30 at [facility] presents for abdominal pain. Patient notes that he was feeling well until Wednesday this past weekend after he went out to eat and began to experience abdominal bloating and pain. He notes that he has been struggling with constipation has small, hard stools. His last bowel movement was this morning. He denies any associated nausea or vomiting. He notes the abdominal pain is in his diffuse abdomen but worse in the bilateral lower quadrants. Denies any urinary symptoms. He did have some subjective fevers and chills and was concerned for Covid so went to a walk-in clinic yesterday and his Covid test was negative. He has been vaccinated against Covid. He denies any chest pain or shortness of breath. Treatments HOME CARE LIAISON: Reports: Acetaminophen bilateral lower abdomen Pain Score (Numeric/FACES): 7 - Related Data Allergies Allergy/AdvReac Type Severity Reaction Status Date / Time No Known Allergies Allergy Verified 10/09/20 14:10 Home Meds: Home Meds Aspirin [Ecotrin EC] 81 mg PO DAILY 04/29/15 [History] Citalopram Hydrobromide [Celexa] 20 mg PO DAILY 08/18/18 [History] Metoprolol Succinate 12.5 mg PO DAILY 08/18/18 [History] Omeprazole 20 mg PO ACBREAKFAST 08/18/18 [History] Rosuvastatin Calcium 40 mg PO BEDTIME 08/18/18 [History] Tamsulosin HCl 2 tab PO BEDTIME 08/18/18 [History] metFORMIN HCl [Metformin HCl] 500 mg PO BIDMEALS 08/18/18 [History] Diclofenac Sodium [Voltaren] 50 mg PO ASDIRECTED PRN 01/17/19 [History] Acetaminophen/HYDROcodone [Peck 325-5 MG] 1 tab PO Q6H PRN 3 Days #10 tablet 01/23/19 [Rx] Acetaminophen/oxyCODONE [Percocet 325-5 MG] 1 each PO Q4H PRN #18 tab 10/09/20 [Rx] Docusate Sodium [Dulcolax Stool Softener] 100 mg PO TID 7 Days #21 capsule 10/09/20 [Rx] Past Medical History - Past Health History Medical/Surgical History: Denies Medical/Surgical History HEENT History: Reports: Impaired Vision Other HEENT History: Left eye was affected when he had a stroke. Peripheral vision was affected Cardiovascular History: Reports: CAD, High Cholesterol, Hypertension, IL, Stents, Other (See Below) Other Cardiovascular History: IL in 2010, followed by stent. 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 Another stroke in 06/24 with balance problems (still occasionaly present) and problems moving rt. lower leg for short period of time. Respiratory History: Reports: None Gastrointestinal History: Reports: Diverticulosis, GERD, Other (See Below) Other Gastrointestinal History: hx c-diff x3 Genitourinary History: Reports: BPH Musculoskeletal History: Reports: Fracture, Gout Other Musculoskeletal History: hx fx foot Neurological History: Reports: CVA Other Neuro History: Last CVA was on June 30, 2018. 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 Hematologic History: Reports: None Immunologic History: Reports: None Oncologic (Cancer) History: Reports: Lymphoma Dermatologic History: Reports: None - Infectious Disease History Infectious Disease History: Reports: Chicken Pox, Measles - Past Surgical History Head Surgeries/Procedures: Reports: None HEENT Surgical History: Reports: None Cardiovascular Surgical History: Reports: Coronary Artery Stent Respiratory Surgical History: Reports: None GI Surgical History: Reports: Appendectomy, Hernia, Inguinal Endocrine Surgical History: Reports: None Neurological Surgical History: Reports: None Musculoskeletal Surgical History: Reports: Other (See Below) Other Oncologic Surgeries/Procedures: hx tumor removed from neck Dermatological Surgical History: Reports: None Social & Family History - Family History Family Medical History: No Pertinent Family History - Tobacco Use Tobacco Use Status *Q: Never Tobacco User - Caffeine Use Caffeine Use: Reports: None Caffeine Use Comment: 3 cups a day - Recreational Drug Use Recreational Drug Use: No - Living Situation & Occupation Living situation: Reports: Single Occupation: Employed ED ROS GENERAL - Review of Systems Review Of Systems: Comprehensive ROS is negative, except as noted in HPI. ED EXAM, GENERAL - Physical Exam Exam: See Below Exam Limited By: No Limitations General Appearance: Alert, WD/WN, No Apparent Distress Ears: Hearing Grossly Normal Throat/Mouth: Normal Voice, No Airway Compromise Head: Atraumatic, Normocephalic Neck: Normal Inspection Respiratory/Chest: No Respiratory Distress, Lungs Clear, Normal Breath Sounds, No Accessory Muscle Use Cardiovascular: Normal Peripheral Pulses, Regular Rate, Rhythm GI/Abdominal: Soft, Non-Tender, Distended Extremities: Normal Inspection Neurological: Alert, Normal Cognition, Normal Gait Psychiatric: Normal Affect, Normal Mood Skin Exam: Warm, Dry, Intact, Normal Color Course - Vital Signs Last Recorded V/S: Last Vital Signs Temp 98.6 F 10/09/20 14:54 Pulse 64 10/09/20 16:24 Resp 18 10/09/20 16:24 BP 131/77 10/09/20 16:24 Pulse Ox 97 10/09/20 16:24 - Orders/Labs/Meds Orders: Active Orders 24 hr Category Date Time Status Sodium Chloride 0.9% [Saline Flush] Med 10/09/20 14:20 Active 10 ml FLUSH ASDIRECTED PRN Sodium Chloride 0.9% [Saline Flush] Med 10/09/20 14:20 Active 2.5 ml FLUSH ASDIRECTED PRN Saline Lock Insert [OM.PC] Stat Oth 10/09/20 14:20 Ordered Medication Orders Sodium Chloride (Sodium Chloride 0.9% 10 Ml Syringe) 10 ml FLUSH ASDIRECTED PRN PRN Reason: Keep Vein Open Last Admin: 10/09/20 14:46 Dose: 10 ml Documented by: GABO Sodium Chloride (Sodium Chloride 0.9% 2.5 Ml Syringe) 2.5 ml FLUSH ASDIRECTED PRN PRN Reason: Keep Vein Open Last Admin: 10/09/20 14:46 Dose: 2.5 ml Documented by: GABO Labs: Laboratory Tests 10/09/20 10/09/20 10/09/20 Range/Units 14:32 14:32 14:32 WBC 8.10 (4.0-11.0) K/uL RBC 3.78 L (4.50-5.90) M/uL Hgb 11.9 L (13.0-17.0) g/dL Hct 35.4 L (38.0-50.0) % MCV 93.7 (80.0-98.0) fL MCH 31.5 (27.0-32.0) pg MCHC 33.6 (31.0-37.0) g/dL RDW Std Deviation 45.0 (28.0-62.0) fl RDW Coeff of Janet 13 (11.0-15.0) % Plt Count 183 (150-400) K/uL MPV 10.50 (7.40-12.00) fL Neut % (Auto) 79.1 (48.0-80.0) % Lymph % (Auto) 12.7 L (16.0-40.0) % Cache % (Auto) 7.2 (0.0-15.0) % Eos % (Auto) 0.9 (0.0-7.0) % Baso % (Auto) 0.1 (0.0-1.5) % Neut # (Auto) 6.4 H (1.4-5.7) K/uL Lymph # (Auto) 1.0 (0.6-2.4) K/uL Cache # (Auto) 0.6 (0.0-0.8) K/uL Eos # (Auto) 0.1 (0.0-0.7) K/uL Baso # (Auto) 0.0 (0.0-0.1) K/uL Nucleated RBC % 0.0 /100WBC Nucleated RBCs # 0 K/uL Sodium 135 L (136-148) mmol/L Potassium 3.7 (3.5-5.1) mmol/L Chloride 102 (98-107) mmol/L Carbon Dioxide 26.6 (21.0-32.0) mmol/L BUN 13 (7.0-18.0) mg/dL Creatinine 1.0 (0.8-1.3) mg/dL Est Cr Clr Drug Dosing 75.05 mL/min Estimated GFR (MDRD) > 60.0 ml/min Glucose 181 H (74-106) mg/dL Lactic Acid 1.7 (0.4-2.0) mmol/L Calcium 9.7 (8.5-10.1) mg/dL Magnesium 1.8 (1.8-2.4) mg/dL Total Bilirubin 0.4 (0.2-1.0) mg/dL AST 17 (15-37) IU/L ALT 29 (14-63) IU/L Alkaline Phosphatase 66 (46-116) U/L Total Protein 7.0 (6.4-8.2) g/dL Albumin 3.4 (3.4-5.0) g/dL Globulin 3.6 (2.6-4.0) g/dL Albumin/Globulin Ratio 0.9 (0.9-1.6) Lipase 111 (73-393) U/L Meds: Medications Generic Name Dose Route Start Last Admin Trade Name Freq PRN Reason Stop Dose Admin Sodium Chloride 10 ml 10/09/20 14:20 10/09/20 14:46 Sodium Chloride 0.9% 10 Ml Syringe FLUSH 10 ml ASDIRECTED PRN Administration Keep Vein Open Sodium Chloride 2.5 ml 10/09/20 14:20 10/09/20 14:46 Sodium Chloride 0.9% 2.5 Ml Syringe FLUSH 2.5 ml ASDIRECTED PRN Administration Keep Vein Open Discontinued Medications Generic Name Dose Route Start Last Admin Trade Name Freq PRN Reason Stop Dose Admin Sodium Chloride 500 mls @ 999 mls/hr 10/09/20 14:20 10/09/20 14:46 Normal Saline IV 10/09/20 14:50 999 mls/hr .Bolus ONE Administration Iopamidol 100 ml 10/09/20 15:51 10/09/20 16:23 Iopamidol 755 Mg/Ml 50 Ml Bottle IV 10/09/20 15:52 100 ml ONETIME STA Administration - Re-Assessments/Exams Free Text/Narrative Re-Assessment/Exam: 10/09/20 14:23 We will get labs, will get CT imaging of the abdomen and pelvis. Will follow up results and disposition accordingly. 10/09/20 17:20 Labs [address] imaging does reveal a 5.1 x 2.5 cm area of inflamed fat necrosis in the central pelvis adjacent to the site of the anastomosis. I did run this by surgery on-call at [facility], Dr. Richards, who notes that treatment for this condition is pain management; patient does not require antibiotics. She does recommend follow-up with Dr. De La Garza. Will d/c with course of analgesic medication and stool softener. Departure - Departure Time of Disposition: 17:21 Disposition: Home, Self-Care 01 Condition: Good Clinical Impression: Fat necrosis - Discharge Information Prescriptions: Docusate Sodium [Dulcolax Stool Softener] 100 mg PO TID 7 Days #21 capsule Acetaminophen/oxyCODONE [Percocet 325-5 MG] 1 each PO Q4H PRN #18 tab PRN Reason: Pain Instructions: Abdominal Pain, Adult, [id number] Referrals: Norma Fenton PA [Primary Care Provider] - Forms: ED Department Discharge Additional Instructions: Your labs are unremarkable. Your CT results show a small area of fat necrosis in your central pelvis. Fat necrosis is when the fat cells begin to . This can be a painful condition but is not related to any infection. I did discuss this case with Dr. Richards who is the surgeon on-call for Dr. De La Garza today at [place]. She recommended pain medication. She does want you to follow-up with Dr. De La Garza as an outpatient. There is no indication for antibiotics. In addition to pain medication have given your prescription for a stool softener as you are already struggling with constipation and the pain medication can make the constipation worse. The following information is given to patients seen in the emergency department who are being discharged to home. This information is to outline your options for follow-up care. We provide all patients seen in our emergency department with a follow-up referral. The need for follow-up, as well as the timing and circumstances, are variable depending upon the specifics of your emergency department visit. If you don't have a primary care physician on staff, we will provide you with a referral. We always advise you to contact your personal physician following an emergency department visit to inform them of the circumstance of the visit and for follow-up with them and/or the need for any referrals to a consulting specialist. The emergency department will also refer you to a specialist when appropriate. This referral assures that you have the opportunity for follow-up care with a specialist. All of these measure are taken in an effort to provide you with optimal care, which includes your follow-up. Under all circumstances we always encourage you to contact your private physician who remains a resource for coordinating your care. When calling for follow-up care, please make the office aware that this follow-up is from your recent emergency room visit. If for any reason you are refused follow-up, please contact the [facility] Emergency Department at and asked to speak to the emergency department charge nurse. Please follow up with your primary care physician. If you do not have a primary care physician, see below: [facility] [address], [place] [address] [facility] [address] [place] [address] [facility] [address], [place] [address] Sepsis Event Note (ED) - Evaluation Sepsis Screening Result: No Definite Risk - Focused Exam Vital Signs: Vital Signs Temp Pulse Resp BP Pulse Ox 10/09/20 16:24 64 18 131/77 97 10/09/20 14:54 98.6 F 72 18 139/76 95 10/09/20 14:05 98.1 F 96 18 131/77 98 - My Orders Last 24 Hours: My Active Orders 10/09/20 14:20 Sodium Chloride 0.9% [Saline Flush] 10 ml FLUSH ASDIRECTED PRN Sodium Chloride 0.9% [Saline Flush] 2.5 ml FLUSH ASDIRECTED PRN Saline Lock Insert [OM.PC] Stat - Assessment/Plan Last 24 Hours: My Active Orders 10/09/20 14:20 Sodium Chloride 0.9% [Saline Flush] 10 ml FLUSH ASDIRECTED PRN Sodium Chloride 0.9% [Saline Flush] 2.5 ml FLUSH ASDIRECTED PRN Saline Lock Insert [OM.PC] Stat
[2020-10-09 15:29] LABS: BLOOD UREA NITROGEN,BUN 13 mg/dL (7.0-18.0); CARBON DIOXIDE,CO2 26.6 mmol/L (21.0-32.0); CHLORIDE,CL 102 mmol/L (98-107); GLUCOSE RANDOM 181 mg/dL (74-106); LIPASE 111 U/L (73-393); POTASSIUM,K 3.7 mmol/L (3.5-5.1); SODIUM,NA 135 mmol/L (136-148)
[2020-10-09] MEDS ORDERED: Iopamidol 755 MG/ML 50 ML Bottle IV STA (15:51)
[2020-10-09 16:25] VITALS: PULSE 64
--- NOTE | 2020-10-09 17:09 | CT ---
INDICATION: Pain and bloating, colon resection 1 month ago. TECHNIQUE: CT of the abdomen and pelvis with 100 cc Isovue 370 IV contrast. Coronal and sagittal reconstructions. COMPARISON: CT of the abdomen and pelvis 02/26/2020. FINDINGS: Diffuse hepatic steatosis. The gallbladder, spleen, pancreas, and adrenal glands are negative. No biliary dilation. Hepatic and portal veins are patent. Symmetric enhancement of the kidneys. Small low-attenuation lesion in the posterior right upper pole most likely represents a cyst. Small bilateral nonobstructing renal caliceal stones. No hydronephrosis or ureteral dilation. No obstructing urinary calculi. The bladder is unremarkable. Enlarged prostate gland. Interval postoperative changes of the sigmoid colon. There is a 5.1 x 2.5 cm area of inflamed fat necrosis in the central pelvis adjacent to the anastomosis (series 201, image 136). No wall thickening of the adjacent colon. No focal fluid collection. Mild amount of stool throughout the colon. The appendix is not identified, however there are no secondary signs of inflammation in the right lower quadrant. No intraperitoneal free air or fluid. No small bowel dilation. Postoperative changes of the anterior abdominal wall. Small fat containing left inguinal hernia. Aortoiliac vascular calcifications. Multiple mildly prominent periaortic and left external iliac chain lymph nodes are likely reactive. No lymphadenopathy by size criteria. Stable 3 mm noncalcified pulmonary nodule in the lateral right lower lobe (series 202, image 11). Stable 2 mm noncalcified pulmonary nodule in the lateral right lower lobe (image 17). 5 mm subpleural nodule in the posterior right lower lobe not imaged previously (image 11). Linear atelectasis or scarring left lower lobe. Coronary artery calcifications. IMPRESSION: 1. Interval postoperative changes of the sigmoid colon. There is a 5.1 x 2.5 cm area of inflamed fat necrosis in the central pelvis adjacent to the anastomosis. 2. Diffuse hepatic steatosis. 3. Enlarged prostate gland. 4. Small noncalcified pulmonary nodules in the right lower lobe measuring up to 5 mm. Follow-up per Fleischner society guidelines. Please note that all CT scans at this facility use dose modulation, iterative reconstruction, and/or weight-based dosing when appropriate to reduce radiation dose to as low as reasonably achievable. Dictated by Claudia Smith MD @ 10/09/2020 5:08:[address] Claudia Smith @ Oct 09 2020 5:08PM
[2020-10-09 17:39] VITALS: BP 124/79
== END 2020-10-09 17:39 | disposition home or self-care (01) ==
LOC: MW.ED 13:18
DX: M79.89 Other specified soft tissue disorders (principal); I25.10 Atherosclerotic heart disease of native coronary artery without angina pectoris; E78.00 Pure hypercholesterolemia, unspecified; I10 Essential (primary) hypertension; I25.2 Old myocardial infarction; K21.9 Gastro-esophageal reflux disease without esophagitis; M10.9 Gout, unspecified; E11.9 Type 2 diabetes mellitus without complications; N40.0 Benign prostatic hyperplasia without lower urinary tract symptoms; E66.9 Obesity, unspecified; Z68.28 Body mass index [BMI] 28.0-28.9, adult; Z79.82 Long term (current) use of aspirin; Z79.84 Long term (current) use of oral hypoglycemic drugs; Z79.899 Other long term (current) drug therapy
CPT/HCPCS: 74177; 80053; 83605; 83690; 83735; 85025; 99284; J7030; Q9967

== ENCOUNTER 2021-08-22 20:25 | Emergency (ER) | payer BC ==
[2021-08-22] MEDS ORDERED: Sodium Chloride 0.9% 2.5 ML Syringe FLUSH PRN (20:36)
[2021-08-22] MEDS ORDERED: Sodium Chloride 0.9% 10 ML Syringe FLUSH PRN (20:36)
[2021-08-22] MEDS ORDERED: Sodium Chloride 0.9% 1,000 ML IV ONE (20:39)
[2021-08-22 23:00] LABS: CARBON DIOXIDE,CO2 24.4 mmol/L (21.0-32.0); POTASSIUM,K 4.4 mmol/L (3.5-5.1)
[2021-08-22] MEDS ORDERED: Aspirin 81 MG Tab.Chew PO ONE (23:17)
[2021-08-22] MEDS ORDERED: Heparin Sodium 5,000 Units/ML Vial IVPUSH STA (23:19)
[2021-08-22] MEDS ORDERED: Heparin Sodium/0.45% NaCl 500 ML IV SCH (23:30)
[2021-08-22] MEDS ORDERED: atorvaSTATin 40 MG Tab PO ONE (23:43)
[2021-08-23] MEDS ORDERED: Lactated Ringers 1,000 ML IV STA (00:15)
[2021-08-23] MEDS ORDERED: Acetaminophen 500 MG Tab PO ONE (00:15)
[2021-08-23 00:46] VITALS: BP 114/70; PULSE 64
== END 2021-08-23 02:05 ==
LOC: MW.ED 20:25
DX: I21.4 Non-ST elevation (NSTEMI) myocardial infarction (principal); I10 Essential (primary) hypertension; E66.9 Obesity, unspecified; E78.00 Pure hypercholesterolemia, unspecified; Z79.84 Long term (current) use of oral hypoglycemic drugs; Z20.822 Contact with and (suspected) exposure to COVID-19; Z79.899 Other long term (current) drug therapy; Z68.27 Body mass index [BMI] 27.0-27.9, adult
CPT/HCPCS: 36415; 70450; 71045; 72125; 72128; 72131; 80053; 81001; 82009; 82550; 83735; 84484; 85025; 85610; 87635; 93005; 96361; 96365; 96366; 99285; A9270; J1644; J3490; J7030; J7120; 93010; 99291; U0002

== ENCOUNTER 2022-03-04 15:17 | Emergency (ER) | payer BC ==
[2022-03-04] MEDS ORDERED: Sodium Chloride 0.9% 2.5 ML Syringe FLUSH PRN (15:26)
[2022-03-04] MEDS ORDERED: Sodium Chloride 0.9% 10 ML Syringe FLUSH PRN (15:26)
[2022-03-04 15:59] LABS: CARBON DIOXIDE,CO2 24.5 mmol/L (21.0-32.0); POTASSIUM,K 3.6 mmol/L (3.5-5.1)
[2022-03-04] MEDS ORDERED: Magnesium Sulfate/Water 4 GM in Premix Bag 1 BAG IV ONE (16:12)
[2022-03-04] MEDS ORDERED: Potassium Chloride 20 MEQ in Premix Bag 1 BAG IV ONE (16:13)
[2022-03-04] MEDS ORDERED: Sodium Chloride 0.9% 250 ML IV ONE (16:30)
[2022-03-04 17:11] VITALS: BP 122/84; PULSE 73
== END 2022-03-04 18:00 ==
LOC: MW.ED 15:17
DX: I47.20 Ventricular tachycardia, unspecified (principal); I25.2 Old myocardial infarction; E11.9 Type 2 diabetes mellitus without complications; I25.10 Atherosclerotic heart disease of native coronary artery without angina pectoris; E78.00 Pure hypercholesterolemia, unspecified; I10 Essential (primary) hypertension; N40.0 Benign prostatic hyperplasia without lower urinary tract symptoms; E66.9 Obesity, unspecified; Z86.73 Personal history of transient ischemic attack (TIA), and cerebral infarction without residual deficits; Z79.899 Other long term (current) drug therapy; Z79.82 Long term (current) use of aspirin; Z79.84 Long term (current) use of oral hypoglycemic drugs; Z20.822 Contact with and (suspected) exposure to COVID-19; Z68.27 Body mass index [BMI] 27.0-27.9, adult
CPT/HCPCS: 36415; 71045; 80053; 83735; 84484; 85025; 87635; 93005; 96365; 99285; J3475; J3480; J3490; J7050; U0002

== ENCOUNTER 2022-06-01 11:24 | Emergency (ER) | payer BC ==
[2022-06-01] MEDS ORDERED: Sodium Chloride 0.9% 10 ML Syringe FLUSH PRN (12:18)
[2022-06-01] MEDS ORDERED: Sodium Chloride 0.9% 2.5 ML Syringe FLUSH PRN (12:18)
[2022-06-01 12:37] LABS: BLOOD UREA NITROGEN,BUN 16 mg/dL (7.0-18.0); CARBON DIOXIDE,CO2 27.5 mmol/L (21.0-32.0); CHLORIDE,CL 102 mmol/L (98-107); GLUCOSE RANDOM 151 mg/dL (74-106); POTASSIUM,K 4.2 mmol/L (3.5-5.1); SODIUM,NA 138 mmol/L (136-148)
[2022-06-01 12:39] LABS: ESTIMATED GFR 100 mL/min (>60)
[2022-06-01 14:28] VITALS: BP 146/92; PULSE 62
== END 2022-06-01 14:37 | disposition home or self-care (01) ==
LOC: MW.ED 11:24
DX: R07.89 Other chest pain (principal); M79.602 Pain in left arm; M79.661 Pain in right lower leg; I25.10 Atherosclerotic heart disease of native coronary artery without angina pectoris; E11.9 Type 2 diabetes mellitus without complications; I10 Essential (primary) hypertension; I25.2 Old myocardial infarction; E78.00 Pure hypercholesterolemia, unspecified; K21.9 Gastro-esophageal reflux disease without esophagitis; N40.0 Benign prostatic hyperplasia without lower urinary tract symptoms; E66.9 Obesity, unspecified; Z68.30 Body mass index [BMI] 30.0-30.9, adult; Z95.0 Presence of cardiac pacemaker; Z88.8 Allergy status to other drugs, medicaments and biological substances; Z79.84 Long term (current) use of oral hypoglycemic drugs; Z79.02 Long term (current) use of antithrombotics/antiplatelets; Z79.899 Other long term (current) drug therapy; Z79.82 Long term (current) use of aspirin; W01.0XXA Fall on same level from slipping, tripping and stumbling without subsequent striking against object, initial encounter
CPT/HCPCS: 36415; 71046; 71046-26; 73070-26-LT; 73070-LT; 73090-26-LT; 73090-LT; 80053; 82947; 83735; 84484; 85025; 93005; 99285

== ENCOUNTER 2022-06-06 10:08 | Emergency (ER) | payer BC ==
[2022-06-06 10:30] VITALS: PULSE 60
[2022-06-06 11:19] VITALS: BP 107/68
== END 2022-06-06 11:19 | disposition home or self-care (01) ==
LOC: MW.ED 10:08
DX: S50.02XA Contusion of left elbow, initial encounter (principal); I25.10 Atherosclerotic heart disease of native coronary artery without angina pectoris; E78.00 Pure hypercholesterolemia, unspecified; I10 Essential (primary) hypertension; I25.2 Old myocardial infarction; K21.9 Gastro-esophageal reflux disease without esophagitis; N40.0 Benign prostatic hyperplasia without lower urinary tract symptoms; M10.9 Gout, unspecified; E66.9 Obesity, unspecified; Z68.27 Body mass index [BMI] 27.0-27.9, adult; Z88.8 Allergy status to other drugs, medicaments and biological substances; Z79.82 Long term (current) use of aspirin; Z79.02 Long term (current) use of antithrombotics/antiplatelets; Z79.899 Other long term (current) drug therapy; W19.XXXA Unspecified fall, initial encounter
CPT/HCPCS: 99283

== ENCOUNTER 2024-01-21 10:23 | Emergency (ER) | payer BC ==
[2024-01-21 11:07] LABS: BASOPHILS ABSOLUTE AUTO 0.02 K/uL (0.00-0.20); BASOPHILS PERCENT AUTO 0.4 % (0.0-1.0); EOSINOPHILS ABSOLUTE AUTO 0.06 K/uL (0.00-0.45); EOSINOPHILS PERCENT AUTO 1.3 % (0.0-6.0); HEMATOCRIT 43.5 % (42.0-52.0); HEMOGLOBIN 14.2 g/dL (14.0-18.0); IMMATURE GRAN ABSOLUTE AUTO 0.02 K/uL (0.00-0.05); IMMATURE GRAN PERCENT AUTO 0.4 % (0.0-0.4); LYMPHOCYTES ABSOLUTE AUTO 1.35 K/uL (1.00-4.80); LYMPHOCYTES PERCENT AUTO 30.1 % (24.0-44.0); MEAN CORPUSCULAR HEMOGLOBIN 30.7 pg (28.0-32.0); MEAN CORPUSCULAR HGB CONC 32.6 g/dL (32.0-36.0); MEAN PLATELET VOLUME 10.4 fL (9.4-12.4); MONOCYTES ABSOLUTE AUTO 0.28 K/uL (0.00-0.80); MONOCYTES PERCENT AUTO 6.2 % (0.0-8.0); NEUTROPHILS ABSOLUTE AUTO 2.76 K/uL (1.80-7.70); NEUTROPHILS PERCENT AUTO 61.6 % (41.0-71.0); PLATELET COUNT,PLT 144 K/uL (150-400); RED BLOOD CELL COUNT 4.63 M/uL (4.52-5.90); WHITE BLOOD CELL COUNT,WBC 4.49 K/uL (3.9-11.3)
[2024-01-21 11:41] LABS: A/G RATIO 1.1 (0.9-1.6); ALBUMIN 3.8 g/dL (3.4-5.0); BILIRUBIN TOTAL 0.4 mg/dL (0.2-1.0); CARBON DIOXIDE,CO2 26.7 mmol/L (21.0-32.0); EST CRCL DRUG DOSING (CG) 67.34 mL/min; POTASSIUM,K 4.2 mmol/L (3.5-5.1); PROTEIN TOTAL,TP 7.4 g/dL (6.4-8.2)
[2024-01-23 10:34] VITALS: BP 136/82; PULSE 77
== END 2024-01-21 12:19 | disposition home or self-care (01) ==
LOC: MW.ED 10:23
DX: J40 Bronchitis, not specified as acute or chronic (principal); I10 Essential (primary) hypertension; E78.00 Pure hypercholesterolemia, unspecified; K21.9 Gastro-esophageal reflux disease without esophagitis; Z90.49 Acquired absence of other specified parts of digestive tract; Z88.8 Allergy status to other drugs, medicaments and biological substances; Z79.82 Long term (current) use of aspirin; Z79.84 Long term (current) use of oral hypoglycemic drugs; Z79.890 Hormone replacement therapy; Z79.899 Other long term (current) drug therapy; Z75.8 Other problems related to medical facilities and other health care
CPT/HCPCS: 36415; 71045; 71045-26; 80053; 83880; 85025; 87428-QW; 99285